=== PATIENT | female | born 1945 | race Caucasian/White ===

== ENCOUNTER 2022-12-17 13:12 | Inpatient (IN) ==
[2022-12-17] MEDS ORDERED: SODIUM CHLORIDE 0.9% 1000ML 1,000 ML IV SCH (13:45)
--- NOTE | 2022-12-17 13:45 | Emergency Department Note ---
Impression & Plan SOB (shortness of breath), Anemia, Weakness, Rectal bleeding ED Provider Note NAME: EZRA COTTON AGE: 76 SEX: F : 1945 ARRIVES VIA: Ambulance INFORMANT: [Patient] ED PROVIDER(S): [Quinn Garcia MD] CHIEF COMPLAINT: Weakness HISTORY OF PRESENT ILLNESS: The patient is a 76-year-old female who states that she had her legs give out on her today because of weakness. She has noticed 2 or 3 days of a bloody stool, sometimes, just blood is noted in the toilet when she uses the bathroom. She is not on any blood thinning agents. Patient denies any abdominal pain. There has been no chest pain, fever or cough. She believes she looks pale in the mirror and she states that she has felt short of breath with any type of exertion. The patient denies injury today, there was no loss of consciousness. PMHx/PSHx: See Below SOCIAL HISTORY: See Below. PHYSICAL EXAM: GENERAL: Patient is in no acute distress. HEENT: No acute trauma, normocephalic atraumatic, mucous membranes moist, no nasal congestion. NECK: No stridor, no adenopathy, no meningismus, trachea is midline. LUNGS: Clear to auscultation bilaterally, no wheeze, no rhonchi, breath sounds equal. HEART: Normal rate, irregular rhythm, no murmurs. ABDOMEN: Soft, nontender, bowel sounds positive, no peritonitis. Obese. EXTREMITIES: No cyanosis, mild bilateral pedal edema, full range of motion of all the joints without pain or difficulty, no signs for acute trauma. NEUROLOGIC: Oriented x 3, no acute motor or sensory deficits, no focal weakness. SKIN: No rash, no jaundice, no diaphoresis. Pale. DIFFERENTIAL DIAGNOSIS: GI bleeding, diverticular bleeding, hemorrhoids, rectal mass, upper GI bleed, anemia, dehydration, electrolyte imbalance, infection, dysrhythmia, among others. EMERGENCY DEPARTMENT COURSE/PROCEDURES: Prior/Outside records reviewed: EMS notes. ECG per my interpretation: Indication was GI bleed and weakness. The ECG shows atrial fibrillation with a rate of 73. There is some nonspecific ST change. There is no ST elevation, no PVCs. The QTc is 445. Continuous Cardiac Monitoring per my interpretation: An order was placed for continuous cardiac monitoring. The monitor shows a rate of 78 with atrial fibrillation. Critical Care Note: I have personally spent 51 minutes of critical care time in the direct management of this patient. This includes bedside care, interpretation of diagnostic studies, and testing, discussion with consultants, patient, and family members, and other required patient management activities. This 51 minutes is in excess of all separately billable procedures. MEDICAL DECISION MAKING: There is no leukocytosis. Hemoglobin was low at 7.6. This is a drop of around 3 points for her. There was a normal platelet count. No coagulopathy. No renal failure or significant electrolyte abnormality. No concerning liver enzyme elevation. The patient appeared to be in a euthyroid state. ECG shows atrial fibrillation, no ischemia. Cardiac enzyme testing x1 is not consistent with acute cardiac injury. Urinalysis does not show infection. COVID test returned negative. Chest film per my review showed some chronic change, no CHF. Abdominal and pelvis CT showed a fullness in the rectal area, no bowel obstruction, no source for bleeding by CT imaging. The patient was pale, she presented with some weakness and near syncope. She noted shortness of breath with exertion. She did have a bloody bowel while here in the ED. The patient was aggressively managed. She received IV saline, 1 L. She was ordered for 1 unit of packed red blood cells to be transfused here in the ED. The proper consent for the transfusion was completed and signed. I spoke with the patient and her friends/family. She is in need of a hospital stay. At this time, the source for the bleeding is unclear but the bleeding does appear lower. She is not on any blood thinning agents. She requires resuscitation. GI can see her during this hospital stay to help with the source for the bleeding. I spoke with case management, the on-call hospitalist was consulted. DISPOSITION: Patient's presentation and findings warrant a hospital stay. Past Med/Surg History Medical History A-fib Anxiety Breast cancer CKD (chronic kidney disease) stage 3, GFR 30-59 ml/min HTN, goal below 140/90 Lymphedema Prediabetes Rheumatoid arthritis Sick sinus syndrome Surgical History History of ankle surgery History of D&C History of lumpectomy of left breast History of tubal ligation Family History Mother Cancer Diabetes Brother Cancer Daughter Breast cancer Father Diabetes Social History Smoking Status: Never smoker Hx Alcohol Use: No Hx Substance Use: No Preferred Language: Chinese Feels Safe at Home: Yes Allergies Allergies Allergy/AdvReac Type Severity Reaction Status Date / Time nickel Allergy Mild SKIN Verified 12/17/22 15:43 IRRITATION ciprofloxacin [From Cipro] AdvReac Severe DESTROYED Verified 12/17/22 15:43 LIGAMENTS IN KNEE naproxen AdvReac Intermediate gi upset Verified 12/17/22 15:43 rofecoxib AdvReac Intermediate irregular Verified 12/17/22 15:43 heartbeat lisinopril AdvReac Cough Verified 12/17/22 17:09 Home Meds Home Medications Medication Instructions Recorded Confirmed alprazolam 0.25 mg tablet 0.25 mg PO BID PRN Anxiety 12/17/22 12/17/22 hydrocodone 5 mg-acetaminophen 325 1 tab PO Q8 PRN Pain 12/17/22 12/17/22 mg tablet metoprolol succinate 25 mg 25 mg PO QID 12/17/22 12/17/22 tablet,extended release 24 hr prednisone 5 mg tablet 5 mg PO DAILY 12/17/22 12/17/22 Results & Data (ED) Vital Signs Vital Signs - 24 hr 12/17/22 13:20 12/17/22 13:34 12/17/22 13:38 Temperature 36.6 C Temperature Source Oral Pulse Rate 74 79 Pulse Rate from SpO2 Sensor Respiratory Rate 20 Respiratory Effort / Characteristics Non-Labored Respiratory Depth Normal Blood Pressure Blood Pressure Mean Pulse Oximetry 100 99 Oxygen Delivery Method Nasal Cannula Room Air Oxygen Flow Rate 6 Sepsis Recent Fever Within 48 Hours No Sepsis New/Unexplained Change in Mental Status No Sepsis Action Taken by Nursing No Action Required Oxygen Flow Rate - Titration 0 Pulse Oximetry Post Tiitration 97 12/17/22 14:46 12/17/22 13:30 12/17/22 14:30 Temperature Temperature Source Pulse Rate 78 76 74 Pulse Rate from SpO2 Sensor 72 77 Respiratory Rate 13 15 Respiratory Effort / Characteristics Respiratory Depth Blood Pressure Blood Pressure Mean Pulse Oximetry 97 99 95 Oxygen Delivery Method Room Air Oxygen Flow Rate Sepsis Recent Fever Within 48 Hours Sepsis New/Unexplained Change in Mental Status Sepsis Action Taken by Nursing Oxygen Flow Rate - Titration Pulse Oximetry Post Tiitration 12/17/22 15:30 Temperature Temperature Source Pulse Rate 79 Pulse Rate from SpO2 Sensor 80 Respiratory Rate 12 Respiratory Effort / Characteristics Respiratory Depth Blood Pressure 162/93 H Blood Pressure Mean 116 Pulse Oximetry 96 Oxygen Delivery Method Oxygen Flow Rate Sepsis Recent Fever Within 48 Hours Sepsis New/Unexplained Change in Mental Status Sepsis Action Taken by Nursing Oxygen Flow Rate - Titration Pulse Oximetry Post Tiitration Home Medications Current Medication List: was personally reviewed by me Laboratory Data Attestation: I reviewed the patient's lab results. 12/17/22 13:27 12/17/22 13:27 Lab Results 12/17/22 12/17/22 12/17/22 Range/Units 13:27 13:27 13:27 WBC 8.72 (4.8-10.8) K/ul RBC 3.48 L (4.20-5.40) M/uL Hgb 7.6 L (12.0-16.0) g/dl Hct 26.8 L (37.0-47.0) % MCV 77.0 L (80.0-100.0) fL MCH 21.8 L (25.0-34.0) pg MCHC 28.4 L (32.0-36.0) g/dL RDW Std Deviation 45.0 (36.4-46.3) fL RDW Coeff of Cat 16.2 H (11.5-14.5) % Plt Count 383 (130-400) K/uL MPV 9.4 (9.4-12.4) fL Immature Gran % (Auto) 0.8 % Neut % (Auto) 59.5 % Lymph % (Auto) 27.5 % [place] % (Auto) 9.4 % Eos % (Auto) 2.5 % Baso % (Auto) 0.3 % Neut # (Auto) 5.18 (1.40-6.50) K/uL Lymph # (Auto) 2.40 (1.2-3.4) K/uL [place] # (Auto) 0.82 H (0.11-0.59) K/uL Eos # (Auto) 0.22 (0-0.50) K/uL Baso # (Auto) 0.03 (0-0.2) K/uL Immature Gran # (Auto) 0.07 (0.01-0.20) K/uL Hypochromasia Present Anisocytosis Present PT 10.9 (9.0-12.0) Seconds INR 1.0 (0.9-1.1) APTT 23.1 (21.0-31.0) Seconds PTT Ratio 0.8 Sodium 141 (136-145) mmol/L Potassium 3.8 (3.5-5.1) mmol/L Chloride 107 (98-107) mmol/L Carbon Dioxide 28 (21-32) mmol/L Anion Gap 6 (3-11) BUN 23 (6-23) mg/dl Creatinine 0.92 (0.6-1.2) mg/dl Est Cr Clr Drug Dosing Not Reportable Est GFR ( Amer) 69.1 ml/min Est GFR (Non-Af Amer) 59.6 ml/min BUN/Creatinine Ratio 25.0 H (10-20) Glucose 110 H (70-99(Fasting)) mg/dl Calcium 8.3 L (8.6-10.3) mg/dl Magnesium 2.5 H (1.7-2.4) mg/dl Total Bilirubin 0.4 (0.2-1.0) mg/dl AST 10 L (13-39) U/L ALT 8 (7-52) U/L Alkaline Phosphatase 48 (34-104) U/L Troponin I High Sens 4.5 (0-14) pg/ml Total Protein 6.1 (6.0-8.3) gm/dl Albumin 3.7 (3.4-5.0) gm/dl Globulin 2.4 L (2.5-4.0) gm/dl Albumin/Globulin Ratio 1.5 (0.9-2) TSH (0.300-4.500) uIu/ml Urine Color Urine Appearance (Clear) Urine pH (4.5-7.5) Ur Specific [place] (1.000-1.030) Urine Protein (Negative) Urine Glucose (UA) (Negative) Urine Ketones (Negative) Urine Blood (Negative) Urine Nitrite (Negative) Urine Bilirubin (Negative) Urine Urobilinogen (Negative) Ur Leukocyte Esterase (Negative) Urine WBC (Auto) (0-5) /hpf Urine RBC (Auto) (0-4) /hpf U Hyaline Cast (Auto) (0-5) /lpf U Epithel Cells (Auto) (0-5) /lpf Urine Bacteria (Auto) (Negative) SARS-CoV-2, RNA, NAAT (NEGATIVE) Blood Type Blood Type Recheck Antibody Screen Crossmatch 12/17/22 12/17/22 12/17/22 Range/Units 13:27 13:27 14:28 WBC (4.8-10.8) K/ul RBC (4.20-5.40) M/uL Hgb (12.0-16.0) g/dl Hct (37.0-47.0) % MCV (80.0-100.0) fL MCH (25.0-34.0) pg MCHC (32.0-36.0) g/dL RDW Std Deviation (36.4-46.3) fL RDW Coeff of Cat (11.5-14.5) % Plt Count (130-400) K/uL MPV (9.4-12.4) fL Immature Gran % (Auto) % Neut % (Auto) % Lymph % (Auto) % [place] % (Auto) % Eos % (Auto) % Baso % (Auto) % Neut # (Auto) (1.40-6.50) K/uL Lymph # (Auto) (1.2-3.4) K/uL [place] # (Auto) (0.11-0.59) K/uL Eos # (Auto) (0-0.50) K/uL Baso # (Auto) (0-0.2) K/uL Immature Gran # (Auto) (0.01-0.20) K/uL Hypochromasia Anisocytosis PT (9.0-12.0) Seconds INR (0.9-1.1) APTT (21.0-31.0) Seconds PTT Ratio Sodium (136-145) mmol/L Potassium (3.5-5.1) mmol/L Chloride (98-107) mmol/L Carbon Dioxide (21-32) mmol/L Anion Gap (3-11) BUN (6-23) mg/dl Creatinine (0.6-1.2) mg/dl Est Cr Clr Drug Dosing Est GFR ( Amer) ml/min Est GFR (Non-Af Amer) ml/min BUN/Creatinine Ratio (10-20) Glucose (70-99(Fasting)) mg/dl Calcium (8.6-10.3) mg/dl Magnesium (1.7-2.4) mg/dl Total Bilirubin (0.2-1.0) mg/dl AST (13-39) U/L ALT (7-52) U/L Alkaline Phosphatase (34-104) U/L Troponin I High Sens (0-14) pg/ml Total Protein (6.0-8.3) gm/dl Albumin (3.4-5.0) gm/dl Globulin (2.5-4.0) gm/dl Albumin/Globulin Ratio (0.9-2) TSH 2.941 (0.300-4.500) uIu/ml Urine Color Urine Appearance (Clear) Urine pH (4.5-7.5) Ur Specific [place] (1.000-1.030) Urine Protein (Negative) Urine Glucose (UA) (Negative) Urine Ketones (Negative) Urine Blood (Negative) Urine Nitrite (Negative) Urine Bilirubin (Negative) Urine Urobilinogen (Negative) Ur Leukocyte Esterase (Negative) Urine WBC (Auto) (0-5) /hpf Urine RBC (Auto) (0-4) /hpf U Hyaline Cast (Auto) (0-5) /lpf U Epithel Cells (Auto) (0-5) /lpf Urine Bacteria (Auto) (Negative) SARS-CoV-2, RNA, NAAT NEGATIVE (NEGATIVE) Blood Type A Positive Blood Type Recheck Antibody Screen NEGATIVE Crossmatch See Detail 12/17/22 12/17/22 Range/Units 15:29 16:13 WBC (4.8-10.8) K/ul RBC (4.20-5.40) M/uL Hgb (12.0-16.0) g/dl Hct (37.0-47.0) % MCV (80.0-100.0) fL MCH (25.0-34.0) pg MCHC (32.0-36.0) g/dL RDW Std Deviation (36.4-46.3) fL RDW Coeff of Cat (11.5-14.5) % Plt Count (130-400) K/uL MPV (9.4-12.4) fL Immature Gran % (Auto) % Neut % (Auto) % Lymph % (Auto) % [place] % (Auto) % Eos % (Auto) % Baso % (Auto) % Neut # (Auto) (1.40-6.50) K/uL Lymph # (Auto) (1.2-3.4) K/uL [place] # (Auto) (0.11-0.59) K/uL Eos # (Auto) (0-0.50) K/uL Baso # (Auto) (0-0.2) K/uL Immature Gran # (Auto) (0.01-0.20) K/uL Hypochromasia Anisocytosis PT (9.0-12.0) Seconds INR (0.9-1.1) APTT (21.0-31.0) Seconds PTT Ratio Sodium (136-145) mmol/L Potassium (3.5-5.1) mmol/L Chloride (98-107) mmol/L Carbon Dioxide (21-32) mmol/L Anion Gap (3-11) BUN (6-23) mg/dl Creatinine (0.6-1.2) mg/dl Est Cr Clr Drug Dosing Est GFR ( Amer) ml/min Est GFR (Non-Af Amer) ml/min BUN/Creatinine Ratio (10-20) Glucose (70-99(Fasting)) mg/dl Calcium (8.6-10.3) mg/dl Magnesium (1.7-2.4) mg/dl Total Bilirubin (0.2-1.0) mg/dl AST (13-39) U/L ALT (7-52) U/L Alkaline Phosphatase (34-104) U/L Troponin I High Sens (0-14) pg/ml Total Protein (6.0-8.3) gm/dl Albumin (3.4-5.0) gm/dl Globulin (2.5-4.0) gm/dl Albumin/Globulin Ratio (0.9-2) TSH (0.300-4.500) uIu/ml Urine Color Yellow Urine Appearance Clear (Clear) Urine pH 6.5 (4.5-7.5) Ur Specific [place] 1.019 (1.000-1.030) Urine Protein Negative (Negative) Urine Glucose (UA) Negative (Negative) Urine Ketones Negative (Negative) Urine Blood Negative (Negative) Urine Nitrite Negative (Negative) Urine Bilirubin Negative (Negative) Urine Urobilinogen Negative (Negative) Ur Leukocyte Esterase Trace H (Negative) Urine WBC (Auto) 5-10 H (0-5) /hpf Urine RBC (Auto) 0-4 (0-4) /hpf U Hyaline Cast (Auto) 1-5 (0-5) /lpf U Epithel Cells (Auto) >30 H (0-5) /lpf Urine Bacteria (Auto) Negative (Negative) SARS-CoV-2, RNA, NAAT (NEGATIVE) Blood Type Blood Type Recheck A Positive Antibody Screen Crossmatch Administered Medications Discontinued Medications Sodium Chloride (Nss 1000ml) 1,000 mls @ 999 mls/hr IV .Q1H1M DESIRAE Stop: 12/17/22 14:45 Last Infusion: 12/17/22 16:00 Dose: 0 mls/hr Documented By: Admin: 12/17/22 14:02 Dose: 999 mls/hr Documented By: ARIADNE Ioversol (Optiray 320 100ml) 85 ml IV ONCE ONE Stop: 12/17/22 15:10 Last Admin: 12/17/22 15:09 Dose: 85 ml Documented By: ROSA Imaging Data Radiologist's Impression: Abdomen/Pelvis CT 12/17/22 13:[address] WITH IV CONTRAST CT DOSE: 2232.79 mGycm HISTORY: Acute pelvic pain with reported rectal bleeding rectal bleeding TECHNIQUE: Multiaxial CT images of the abdomen and pelvis were performed follo wing the IV administration of 85 cc of Optiray, A dose lowering technique was utilized adhering to the principles of ALARA. COMPARISON STUDY: Mammography 03/25/2012. FINDINGS: There is a linear masslike focus in the medial superior quadrant of the left breast measuring 3.8 cm on image 49 series 5 located approximately 13 cm from the nipple. Mild cardiomegaly. Mild right hemidiaphragmatic elevation. Clear lung bases. No pneumatosis or pneumoperitoneum. The study is limited secondary to patient body habitus. Scattered calcifications are noted within the spleen. Calcifications are also within the splenic artery. Unremarkable pancreas, mildly contracted gallbladder and adrenal glands. Moderate right hemidiaphragmatic elevation. Unremarkable appearance of the liver. Mild cortical thinning of the kidneys without hydronephrosis or suspicious mass lesion. No filling defects identified within the opacified renal collecting systems. Unremarkable urinary bladder and uterus. Aorta and IVC are u nremarkable. No lymphadenopathy identified. No bowel obstruction. The anus is only partially imaged however demonstrate soft tissue fullness. No bowel obstruction or bowel wall thickening identified. There is no ascites or mesenteric inflammation. Noninflamed appendix. Tiny fat filled umbilical hernia. Unremarkable soft tissues. No acute fracture. Degenerative changes of the shoulders and spine. IMPRESSION: 1. Equivocal mild soft tissue fullness in the partially imaged anus. Correlate with physical exam findings. 2. No bowel obstruction or pneumoperitoneum. 3. Incidental findings as above. ACT 112: Negative or not required by law. The above report was generated using voice recognition software. It may contain grammatical, syntax or spelling errors. Electronically signed by: Jersey Gaston M.D. 12/17/2022 3:35 PM Chest X-Ray 12/17/22 13:41 SINGLE VIEW CHEST CLINICAL HISTORY: Generalized weakness. FINDINGS: An AP, portable, upright chest radiograph is compared to chest x-ray and chest CT dated 03/08/2012. The heart is enlarged. The pulmonary vasculature is noncongested. There is chronic elevation of the right hemidiaphragm with bibasilar atelectasis. No airspace consolidation or large pleural effusion is identified. No pneumothorax is seen. The skeletal structures are osteopenic. The bony thorax is grossly intact. IMPRESSION: Mild cardiomegaly with no acute cardiopulmonary abnormality. ACT 112: Negative or not required by law. Electronically signed by: Quinn Conner M.D. 12/17/2022 2:04 PM Discharge Plan Visit Data Chief Complaint: Weakness Stated Complaint: weakness ED Provider: Quinn Garcia Discharge Problem: SOB (shortness of breath), Anemia, Weakness, Rectal bleeding Patient Disposition: Admitted As Inpatient Condition: Fair Forms Stand Alone Forms: [employer] Prescriptions Prescriptions: No Action hydrocodone-acetaminophen 5-325 mg tablet 1 tab PO Q8 PRN (Reason: Pain) Rx Instructions: Takes 1-2 times per day prednisone 5 mg tablet 5 mg PO DAILY Rx Instructions: IF NEEDED, MAY TAKE 10 MG DAILY FOR FLARE UPS. alprazolam 0.25 mg tablet 0.25 mg PO BID PRN (Reason: Anxiety) Rx Instructions: Takes 1-2 times per day metoprolol succinate 25 mg tablet extended release 24 hr 25 mg PO QID Referrals Referrals: Jennifer Asif [Outside Practitioners] -
[2022-12-17 14:04] LABS: Alanine Aminotransferase 8 U/L (7-52); Albumin Globulin Ratio 1.5 (0.9-2); Albumin Level 3.7 gm/dl (3.4-5.0); Alkaline Phosphatase 48 U/L (34-104); Anion Gap 6 (3-11); Aspartate Aminotransferase 10 U/L (13-39); Bilirubin,Total 0.4 mg/dl (0.2-1.0); Blood Urea Nitrogen 23 mg/dl (6-23); Calcium 8.3 mg/dl (8.6-10.3); Carbon Dioxide 28 mmol/L (21-32); Chloride 107 mmol/L (98-107); Est GFR (African American) 69.1 ml/min; Est GFR (Non-African American) 59.6 ml/min; Globulin 2.4 gm/dl (2.5-4.0); Glucose 110 mg/dl (70-99(Fasting)); Magnesium 2.5 mg/dl (1.7-2.4); Potassium 3.8 mmol/L (3.5-5.1); Sodium 141 mmol/L (136-145); Total Protein 6.1 gm/dl (6.0-8.3)
--- NOTE | 2022-12-17 14:06 | XRay Report ---
SINGLE VIEW CHEST CLINICAL HISTORY: Generalized weakness. FINDINGS: An AP, portable, upright chest radiograph is compared to chest x-ray and chest CT dated 02/17. The heart is enlarged. The pulmonary vasculature is noncongested. There is chronic elevation of the right hemidiaphragm with bibasilar atelectasis. No airspace consolidation or large pleural eff usion is identified. No pneumothorax is seen. The skeletal structures are osteopenic. The bony thorax is grossly intact. IMPRESSION: Mild cardiomegaly with no acute cardiopulmonary abnormality. ACT 112: Negative or not required by law. Electronically signed by: Quinn Conner M.D. 12/17/2022 2:04 PM
[2022-12-17 14:10] LABS: Troponin I High Sensitivity 4.5 pg/ml (0-14)
[2022-12-17 14:26] LABS: Partial Thromboplastin Ratio 0.8; Partial Thromboplastin Time 23.1 Seconds (21.0-31.0); Prothrombin Time 10.9 Seconds (9.0-12.0)
[2022-12-17 14:50] LABS: Hematocrit (blood only) 26.8 % (37.0-47.0); Hemoglobin 7.6 g/dl (12.0-16.0); Mean Corpuscular Hemoglobin 21.8 pg (25.0-34.0); Mean Corpuscular Hgb Conc 28.4 g/dL (32.0-36.0); Mean Platelet Volume 9.4 fL (9.4-12.4); Platelet Count 383 K/uL (130-400); RDW Coefficient of Variation 16.2 % (11.5-14.5); Red Blood Count 3.48 M/uL (4.20-5.40); White Blood Count 8.72 K/ul (4.8-10.8)
[2022-12-17 14:51] LABS: Anisocytosis Present; Basophils # (auto) 0.03 K/uL (0-0.2); Basophils % (auto) 0.3 %; Eosinophils # (auto) 0.22 K/uL (0-0.50); Eosinophils % (auto) 2.5 %; Hypochromasia Present; Immature Granulocytes # (auto) 0.07 K/uL (0.01-0.20); Immature Granulocytes % (auto) 0.8 %; Lymphocytes % (auto) 27.5 %; Monocytes # (auto) 0.82 K/uL (0.11-0.59); Monocytes % (auto) 9.4 %; Neutrophils # (auto) 5.18 K/uL (1.40-6.50); Neutrophils % (auto) 59.5 %
[2022-12-17] MEDS ORDERED: OPTIRAY 320 100ml IV ONE (15:09)
--- NOTE | 2022-12-17 15:36 | CT Scan Report ---
ABDOMEN AND PELVIS CT WITH IV CONTRAST CT DOSE: 2232.79 mGycm HISTORY: Acute pelvic pain with reported rectal bleeding rectal bleeding TECHNIQUE: Multiaxial CT images of the abdomen and pelvis were performed following the IV administrat ion of 85 cc of Optiray, A dose lowering technique was utilized adhering to the principles of ALARA. COMPARISON STUDY: Mammography 03/25/2012. FINDINGS: There is a linear masslike focus in the medial superior quadrant of the left breast measuri ng 3.8 cm on image 49 series 5 located approximately 13 cm from the nipple. Mild cardiomegaly. Mild r ight hemidiaphragmatic elevation. Clear lung bases. No pneumatosis or pneumoperitoneum. The study is limited secondary to patient body habitus. Scattered calcifications are noted within the spleen. Calcifications are also within the splenic сергей ry. Unremarkable pancreas, mildly contracted gallbladder and adrenal glands. Moderate right hemidiaph ragmatic elevation. Unremarkable appearance of the liver. Mild cortical thinning of the kidneys without hydronephrosis or suspicious mass lesion. No filling de fects identified within the opacified renal collecting systems. Unremarkable urinary bladder and uter us. Aorta and IVC are unremarkable. No lymphadenopathy identified. No bowel obstruction. The anus is only partially imaged however demonstrate soft tissue fullness. No bowel obstruction or bowel wall thickening identified. There is no ascites or mesenteric inflammation . Noninflamed appendix. Tiny fat filled umbilical hernia. Unremarkable soft tissues. No acute fractur e. Degenerative changes of the shoulders and spine. IMPRESSION: 1. Equivocal mild soft tissue fullness in the partially imaged anus. Correlate with physical exam fin dings. 2. No bowel obstruction or pneumoperitoneum. 3. Incidental findings as above. ACT 112: Negative or not required by law. The above report was generated using voice recognition software. It may contain grammatical, syntax o r spelling errors. Electronically signed by: Jersey Gaston M.D. 12/17/2022 3:35 PM
[2022-12-17] MEDS ORDERED: SODIUM CHLORIDE 0.9% 250 ML IV PRN (15:51)
[2022-12-17 16:08] LABS: Appearance Urine Clear (Clear); Bacteria Urine Automated Negative (Negative); Bilirubin Urine Negative (Negative); Blood Urine Negative (Negative); Color Urine Yellow; Epithelial Cell Urine Auto >30 /lpf (0-5); Glucose Urine UA Negative (Negative); Ketones Urine Negative (Negative); Leukocyte Esterase Urine Trace (Negative); Nitrite Urine Negative (Negative); Protein Urine Negative (Negative); RBC Urine Automated 0-4 /hpf (0-4); Specific Gravity Urine 1.019 (1.000-1.030); Urobilinogen Urine Negative (Negative); pH Urine 6.5 (4.5-7.5)
--- NOTE | 2022-12-17 16:28 | History & Physical Report ---
Date of Service December 17, 2022 Assessment & Plan (1) Lower gastrointestinal bleed: Plan: Npo for now. GI consult ordered blood transfusion will moniter h/h post transfusion Patient was mildly short of breath and also felt dizzy. states that she has chronic hemorrhoids. (2) Chronic steroid use: Plan: for rheumatoid arthritis. (3) Sick sinus syndrome: Plan: stable rate controlled with metoprolol (4) HTN, goal below 140/90: Plan: continue metoprolol (5) Prediabetes: (6) CKD (chronic kidney disease) stage 3, GFR 30-59 ml/min: (7) A-fib: Plan: rate controlled. Patient was advised eliquis in the past . (8) Rheumatoid arthritis: Plan: continue prednisone. continue hydrocodone prn for pain (9) Acute anemia: Plan: secoondary to gi losses. Plan Admit to Telemetry Vitals as protocol Activity : Bedrest with bathroom previliges Diet NPO Consult :GI consult ordered No Vte prophylaxis Code status: full code. History of Present Illness Chief Complaint: rectal bleeding x 3 days Primary Care Provider: Landon Martinez DO This is a 76 y/o female with a PMH of SSS (has refused PPM placement), afib (refused AC), prior breast cancer (s/p lumpectomy, XRT), rheumatoid arthritis, CKD3a, and chronic prednisone use who presented with rectal bleeding. Today, she had a near syncopal episode so pushed her life alert button. Has become progressively weak, notes some RUIZ. When asked why she's here today, she reports "my hemorrhoids are bleeding" and states that she has had issues with constipation and hemorrhoids x 30 years. Refused anticoagulation due to this - initially agreed at last cardio appt but then declined to get script filled. Worsening symptoms of constipation recently - has adjusted diet over the years which has seemed to help initially but less effective now. For the last three days, she has rectal bleeding any time she has to have a BM - "gushes out." She denies heartburn, indigestion, dysphagia, unexplained wt loss, hematuria, or epistaxis. She does not take NSAIDs. Uses hydrocodone 1-2x/day for her joint pains. Allergies Allergy/AdvReac Type Severity Reaction Status Date / Time nickel Allergy Mild SKIN Verified 12/17/22 15:43 IRRITATION ciprofloxacin [From Cipro] AdvReac Severe DESTROYED Verified 12/17/22 15:43 LIGAMENTS IN KNEE naproxen AdvReac Intermediate gi upset Verified 12/17/22 15:43 rofecoxib AdvReac Intermediate irregular Verified 12/17/22 15:43 heartbeat lisinopril AdvReac Cough Verified 12/17/22 17:09 Home Medications Medication Instructions Recorded Confirmed Type alprazolam 0.25 mg tablet 0.25 mg PO BID PRN Anxiety 12/17/22 12/17/22 History hydrocodone 5 mg-acetaminophen 325 1 tab PO Q8 PRN Pain 12/17/22 12/17/22 H istory mg tablet metoprolol succinate 25 mg 25 mg PO QID 12/17/22 12/17/22 History tablet,extended release 24 hr prednisone 5 mg tablet 5 mg PO DAILY 12/17/22 12/17/22 History Past Med/Surg History Medical History A-fib Anxiety Breast cancer CKD (chronic kidney disease) stage 3, GFR 30-59 ml/min HTN, goal below 140/90 Lymphedema Prediabetes Rheumatoid arthritis Sick sinus syndrome Surgical History History of ankle surgery History of D&C History of lumpectomy of left breast History of tubal ligation Family History Mother Cancer Diabetes Brother Cancer Daughter Breast cancer Father Diabetes Social History Smoking Status: Never smoker Hx Alcohol Use: No Hx Substance Use: No Preferred Language: Congolese Feels Safe at Home: Yes Review of Systems Review of Systems: All systems reviewed & are unremarkable except as noted in HPI & below Constitutional: + fatigue and + weakness; no fever and no chills Ear, Nose, Mouth, Throat: no nasal congestion, no epistaxis, no sore throat and no dysphagia Respiratory: + dyspnea on exertion; no cough and no dyspnea Cardiovascular: + dyspnea on exertion and + lightheadedness; no chest pain and no syncope Gastrointestinal: + constipation and + blood in stools; no abdominal pain, no nausea, no vomiting and no diarrhea/loose stools Genitourinary: no dysuria and no hematuria Musculoskeletal: chronic joint pains due to RA Integumentary: no yellowing of the skin Neurologic: + generalized weakness and + dizziness Psychiatric: + anxiety Physical Exam Physical Exam: Neuro: AAOx3 , PERRLA, no aphasia, HEENT: head normocephalic, CV: S1/S2, Resp: Lungs CTA in all martin. on room air GI: Abdomen non tender. Musculoskeletal: no joint pain. Skin: (-) rashes , (-) erythema. Psych: normal affect Results & Data Results & Data Vital Signs (Past 12 Hours) Vital Signs Temp Pulse Resp BP Pulse Ox O2 Del Method O2 Flow Rate 12/17/22 15:30 79 12 162/93 H 96 12/17/22 14:30 74 15 95 12/17/22 13:30 76 13 99 12/17/22 14:46 78 97 Room Air 12/17/22 13:38 79 12/17/22 13:34 36.6 C 74 20 99 Room Air 12/17/22 13:20 100 Nasal Cannula 6 Laboratory Results Laboratory Results - last 24 hr 12/17/22 12/17/22 12/17/22 13:27 13:27 13:27 WBC 8.72 RBC 3.48 L Hgb 7.6 L Hct 26.8 L MCV 77.0 L MCH 21.8 L MCHC 28.4 L RDW Std Deviation 45.0 RDW Coeff of Cat 16.2 H Plt Count 383 MPV 9.4 Immature Gran % (Auto) 0.8 Neut % (Auto) 59.5 Lymph % (Auto) 27.5 [place] % (Auto) 9.4 Eos % (Auto) 2.5 Baso % (Auto) 0.3 Neut # (Auto) 5.18 Lymph # (Auto) 2.40 [place] # (Auto) 0.82 H Eos # (Auto) 0.22 Baso # (Auto) 0.03 Immature Gran # (Auto) 0.07 Hypochromasia Present Anisocytosis Present PT 10.9 INR 1.0 APTT 23.1 PTT Ratio 0.8 Sodium 141 Potassium 3.8 Chloride 107 Carbon Dioxide 28 Anion Gap 6 BUN 23 Creatinine 0.92 Est Cr Clr Drug Dosing Not Reportable Est GFR ( Amer) 69.1 Est GFR (Non-Af Amer) 59.6 BUN/Creatinine Ratio 25.0 H Glucose 110 H Calcium 8.3 L Magnesium 2.5 H Total Bilirubin 0.4 AST 10 L ALT 8 Alkaline Phosphatase 48 Troponin I High Sens 4.5 Total Protein 6.1 Albumin 3.7 Globulin 2.4 L Albumin/Globulin Ratio 1.5 TSH Urine Color Urine Appearance Urine pH Ur Specific [place] Urine Protein Urine Glucose (UA) Urine Ketones Urine Blood Urine Nitrite Urine Bilirubin Urine Urobilinogen Ur Leukocyte Esterase Urine WBC (Auto) Urine RBC (Auto) U Hyaline Cast (Auto) U Epithel Cells (Auto) Urine Bacteria (Auto) SARS-CoV-2, RNA, NAAT Blood Type Blood Type Recheck Antibody Screen 12/17/22 12/17/22 12/17/22 13:27 13:27 14:28 WBC RBC Hgb Hct MCV MCH MCHC RDW Std Deviation RDW Coeff of Cat Plt Count MPV Immature Gran % (Auto) Neut % (Auto) Lymph % (Auto) [place] % (Auto) Eos % (Auto) Baso % (Auto) Neut # (Auto) Lymph # (Auto) [place] # (Auto) Eos # (Auto) Baso # (Auto) Immature Gran # (Auto) Hypochromasia Anisocytosis PT INR APTT PTT Ratio Sodium Potassium Chloride Carbon Dioxide Anion Gap BUN Creatinine Est Cr Clr Drug Dosing Est GFR ( Amer) Est GFR (Non-Af Amer) BUN/Creatinine Ratio Glucose Calcium Magnesium Total Bilirubin AST ALT Alkaline Phosphatase Troponin I High Sens Total Protein Albumin Globulin Albumin/Globulin Ratio TSH 2.941 Urine Color Urine Appearance Urine pH Ur Specific [place] Urine Protein Urine Glucose (UA) Urine Ketones Urine Blood Urine Nitrite Urine Bilirubin Urine Urobilinogen Ur Leukocyte Esterase Urine WBC (Auto) Urine RBC (Auto) U Hyaline Cast (Auto) U Epithel Cells (Auto) Urine Bacteria (Auto) SARS-CoV-2, RNA, NAAT NEGATIVE Blood Type A Positive Blood Type Recheck Antibody Screen NEGATIVE 12/17/22 12/17/22 15:29 16:13 WBC RBC Hgb Hct MCV MCH MCHC RDW Std Deviation RDW Coeff of Cat Plt Count MPV Immature Gran % (Auto) Neut % (Auto) Lymph % (Auto) [place] % (Auto) Eos % (Auto) Baso % (Auto) Neut # (Auto) Lymph # (Auto) [place] # (Auto) Eos # (Auto) Baso # (Auto) Immature Gran # (Auto) Hypochromasia Anisocytosis PT INR APTT PTT Ratio Sodium Potassium Chloride Carbon Dioxide Anion Gap BUN Creatinine Est Cr Clr Drug Dosing Est GFR ( Amer) Est GFR (Non-Af Amer) BUN/Creatinine Ratio Glucose Calcium Magnesium Total Bilirubin AST ALT Alkaline Phosphatase Troponin I High Sens Total Protein Albumin Globulin Albumin/Globulin Ratio TSH Urine Color Yellow Urine Appearance Clear Urine pH 6.5 Ur Specific [place] 1.019 Urine Protein Negative Urine Glucose (UA) Negative Urine Ketones Negative Urine Blood Negative Urine Nitrite Negative Urine Bilirubin Negative Urine Urobilinogen Negative Ur Leukocyte Esterase Trace H Urine WBC (Auto) 5-10 H Urine RBC (Auto) 0-4 U Hyaline Cast (Auto) 1-5 U Epithel Cells (Auto) >30 H Urine Bacteria (Auto) Negative SARS-CoV-2, RNA, NAAT Blood Type Blood Type Recheck Pending Antibody Screen Diagnostic Findings Abdomen/Pelvis CT 12/17/22 13:[address] WITH IV CONTRAST CT DOSE: 2232.79 mGycm HISTORY: Acute pelvic pain with reported rectal bleeding rectal bleeding TECHNIQUE: Multiaxial CT images of the abdomen and pelvis were performed following the IV administration of 85 cc of Optiray, A dose lowering technique was utilized adhering to the principles of ALARA. COMPARISON STUDY: Mammography 03/25/2012. FINDINGS: There is a linear masslike focus in the medial superior quadrant of the left breast measuring 3.8 cm on image 49 series 5 located approximately 13 cm from the nipple. Mild cardiomegaly. Mild right hemidiaphragmatic elevation. Clear lung bases. No pneumatosis or pneumoperitoneum. The study is limited secondary to patient body habitus. Scattered calcifications are noted within the spleen. Calcifications are also within the splenic artery. Unremarkable pancreas, mildly contracted gallbladder and adrenal glands. Moderate right hemidiaphragmatic elevation. Unremarkable appearance of the liver. Mild cortical thinning of the kidneys without hydronephrosis or suspicious mass lesion. No filling defects identified within the opacified renal collecting systems. Unremarkable urinary bladder and uterus. Aorta and IVC are unremarkable. No lymphadenopathy identified. No bowel obstruction. The anus is only partially imaged however demonstrate soft tissue fullness. No bowel obstruction or bowel wall thickening identified. There is no ascites or mesenteric inflammation. Noninflamed appendix. Tiny fat filled umbilical hernia. Unremarkable soft tissues. No acute fracture. Degenerative changes of the shoulders and spine. IMPRESSION: 1. Equivocal mild soft tissue fullness in the partially imaged anus. Correlate with physical exam findings. 2. No bowel obstruction or pneumoperitoneum. 3. Incidental findings as above. ACT 112: Negative or not required by law. The above report was generated using voice recognition software. It may contain grammatical, syntax or spelling errors. Electronically signed by: Jersey Gaston M.D. 12/17/2022 3:35 PM Chest X-Ray 12/17/22 13:41 SINGLE VIEW CHEST CLINICAL HISTORY: Generalized weakness. FINDINGS: An AP, portable, upright chest radiograph is compared to chest x-ray and chest CT dated 03/08/2012. The heart is enlarged. The pulmonary vasculature is noncongested. There is chronic elevation of the right hemidiaphragm with bibasilar atelectasis. No airspace consolidation or large pleural effusion is identified. No pneumothorax is seen. The skeletal structures are osteopenic. The bony thorax is grossly intact. IMPRESSION: Mild cardiomegaly with no acute cardiopulmonary abnormality. ACT 112: Negative or not required by law. Electronically signed by: Quinn Conner M.D. 12/17/2022 2:04 PM Medications Administered Discontinued Medications Sodium Chloride (Nss 1000ml) 1,000 mls @ 999 mls/hr IV .Q1H1M DESIRAE Stop: 12/17/22 14:45 Last Admin: 12/17/22 14:02 Dose: 999 mls/hr Documented By: ARIADNE Ioversol (Optiray 320 100ml) 85 ml IV ONCE ONE Stop: 12/17/22 15:10 Last Admin: 12/17/22 15:09 Dose: 85 ml Documented By: KSF Code Status & VTE Plan Code Status Code status: Full code Supervising Physician Co-Signing Physician Notes Neuro: AAOx3 , PERRLA, no aphasia, HEENT: head normocephalic, CV: S1/S2, Resp: Lungs CTA in all martin. on room air GI: Abdomen non tender. Musculoskeletal: no joint pain. Skin: (-) rashes , (-) erythema. Psych: normal affect Assessment and plan added to chart I spent a total of 82 minutes reviewing notes, outpatient records, labs, medication, coordinating, documenting and providing care for this patient excluding time spent in the performance of separately billed services.
[2022-12-17] MEDS ORDERED: ACETAMINOPHEN 325 MG TAB PO PRN (19:25)
[2022-12-17] MEDS: METOPROLOL SUCC 25MG EXT REL TAB PO SCH ×2 (20:44→20:48)
[2022-12-17] MEDS: HYDROCODONE/ACETAMOPHEN 5/325MG TAB PO PRN (20:48)
[2022-12-17] MEDS: ALPRAZolam 0.25 MG TABLET PO PRN (21:40)
[2022-12-17] MEDS: PANTOprazole 40 MG in SYRINGE 0 ML IV SCH (23:04)
[2022-12-18] MEDS ORDERED: FUROSEMIDE INJ 20 MG/2 ML VIAL IV ONE (01:45)
[2022-12-18] MEDS: SODIUM CHLORIDE 0.9% 1000ML 1,000 ML IV SCH ×2 (01:57→08:26)
[2022-12-18 04:01] LABS: Hematocrit (blood only) 29.7 % (37.0-47.0); Hemoglobin 9.2 g/dl (12.0-16.0); Mean Corpuscular Hemoglobin 24.4 pg (25.0-34.0); Mean Corpuscular Volume 78.8 fL (80.0-100.0); Mean Platelet Volume 8.9 fL (9.4-12.4); Platelet Count 309 K/uL (130-400); RDW Coefficient of Variation 16.7 % (11.5-14.5); RDW Standard Deviation 47.4 fL (36.4-46.3); Red Blood Count 3.77 M/uL (4.20-5.40); White Blood Count 7.68 K/ul (4.8-10.8)
[2022-12-18 04:04] LABS: BUN Creatinine Ratio 16.9 (10-20); Creatinine Clr Calc Pharmacy 67.4 ml/min; Est GFR (African American) 71.9 ml/min; Est GFR (Non-African American) 62.1 ml/min; Potassium 4.1 mmol/L (3.5-5.1)
[2022-12-18] MEDS: PANTOprazole 40 MG in SYRINGE 0 ML IV SCH ×2 (08:25→20:11)
[2022-12-18] MEDS: METOPROLOL SUCC 25MG EXT REL TAB PO SCH ×4 (08:25→20:12)
[2022-12-18] MEDS: predniSONE 5 MG TAB PO SCH (08:25)
[2022-12-18] MEDS: HYDROCODONE/ACETAMOPHEN 5/325MG TAB PO PRN (08:29)
--- NOTE | 2022-12-18 09:24 | Gastrointestinal Consultation ---
Date of Consultation December 18, 2022 Assessment & Plan (1) Rectal bleeding: (2) Acute anemia: Plan 76 year old female with history of SSS (has refused PPM placement), afib (refused AC due to chronic rectal bleeding), breast cancer (s/p lumpectomy, XRT), CKD-3, RA on prednisone admitted through the ED for symptomatic anemia w/ rectal bleeding, onset three days ago. CT w/ soft tissue thickness of anus. Clear liquids today Golytely 4L NPO after midnight Colonoscopy Saturday Trend H&H Monitor and document GI output Transfuse as needed We appreciate assistance in the management of any serological abnormality and corrections to include: hemoglobin >7, INR <2, platelets >50,000, potassium levels >3.5 but <5.3, and sodium levels within 5 points of the reference range prior to endoscopic evaluation. Thank you for allowing us to participate in the care of this patient. Please call with any acute changes, questions or concerns. Please see addendum below with additional recommendation from my supervising physician. Supervising Physician Co-Signing Physician Notes I have personally seen and examined the patient with SY Burt. Her note reflects my exam and findings. I agree with her impression and plan. Agree with colonoscopy tomorrow. Bradley Mcneal M.D. History of Present Illness Reason for Consultation: rectal bleeding Requesting Physician: Julio Cesar Attending Physician: Andrea Harrell MD History of Present Illness 76 year old female with history of SSS (has refused PPM placement), afib (refused AC due to chronic rectal bleeding), breast cancer (s/p lumpectomy, XRT), CKD-3, RA on prednisone admitted through the ED for evaluation of rectal bleeding. GI was asked to evaluate. Pt was seen, chart reviewed. Suggests rectal bleeding intermittent x years. She notes she has been hesitant to start recommended AC in the past due to the severity of her rectal bleeding. She notes she had colonoscopy x 2 by [facility] years and years ago and had polyps removed but was told that her bleeding was related to hemorrhoids. Has been hesitant to have hemorrhoid procedure so has been using OTC agents PRN. Notes that her bleeding this episode seemed more severe. Started after enema use for management of constipation. Large volume, BRB with some clots. No black stools. Had lightheadedness dizziness which prompted ED evaluation. Denies nausea, vomiting or any report of prior black stools, coffee ground emesis or hematemesis. No fever, chills, CP, SOB. On arrival HGB 7.6 BUN 15 TB 0.4 AST 10 ALT 8 ALKP 48 CTAP 2022: Equivocal mild soft tissue fullness in the partially imaged anus. Correlate with physical exam findings. No bowel obstruction or pneumoperitoneum. Incidental findings as above. Allergies Allergy/AdvReac Type Severity Reaction Status Date / Time nickel Allergy Mild SKIN Verified 12/17/22 15:43 IRRITATION ciprofloxacin [From Cipro] AdvReac Severe DESTROYED Verified 12/17/22 15:43 LIGAMENTS IN KNEE naproxen AdvReac Intermediate gi upset Verified 12/17/22 15:43 rofecoxib AdvReac Intermediate irregular Verified 12/17/22 15:43 heartbeat lisinopril AdvReac Cough Verified 12/17/22 17:09 Home Medications Medication Instructions Recorded Confirmed Type alprazolam 0.25 mg tablet 0.25 mg PO BID PRN Anxiety 12/17/22 12/17/22 History hydrocodone 5 mg-acetaminophen 325 1 tab PO Q8 PRN Pain 12/17/22 12/17/22 History mg tablet metoprolol succinate 25 mg 25 mg PO QID 12/17/22 12/17/22 History tablet,extended release 24 hr prednisone 5 mg tablet 5 mg PO DAILY 12/17/22 12/17/22 History Patient History Medical History A-fib Anxiety Breast cancer CKD (chronic kidney disease) stage 3, GFR 30-59 ml/min HTN, goal below 140/90 Lymphedema Prediabetes Rheumatoid arthritis Sick sinus syndrome Surgical History History of ankle surgery History of D&C History of lumpectomy of left breast History of tubal ligation Family History Mother Cancer Diabetes Brother Cancer Daughter Breast cancer Father Diabetes Social History Smoking Status: Never smoker Hx Alcohol Use: No Hx Substance Use: No Preferred Language: Malay Communication Ability: Effective Garbage Collection Supervisor Required: No Beliefs That Will Affect Care: None Current Living Situation: Alone Other Information That Helps Us Care for You: No Feels Safe at Home: Yes Safety Concerns: Feels Safe At This Time Assistive Devices: Walker and Wheelchair Review of Systems Review of Systems: All systems reviewed & are unremarkable except as noted in HPI & below Physical Exam Constitutional: WD/WN, vitals as above Neck: trachea midline Respiratory: normal respiratory effort, lungs clear to auscultation Cardiovascular: Rate/Rhythm: regular rate Gastrointestinal (Abdomen): normal bowel sounds, soft, nontender, no hepatosplenomegaly Skin: no rashes, warm and dry Results & Data Vital Signs (Past 12 Hours) Vital Signs Temp Pulse Pulse Resp BP BP Pulse Ox 12/18/22 07:38 36.6 C 76 16 145/87 H 94 12/17/22 22:00 73 12/18/22 01:53 37.4 C 77 20 136/84 93 12/18/22 01:20 36.6 C 78 22 153/75 H 96 12/17/22 23:00 109/65 12/18/22 00:20 37.1 C 76 20 119/77 93 12/17/22 23:50 36.8 C 72 20 136/78 94 12/17/22 23:32 37 C 76 20 129/69 97 12/17/22 23:06 37 C 75 18 129/78 94 12/17/22 22:25 37 C 72 22 133/79 96 12/17/22 21:25 37.1 C 82 20 152/80 H 94 O2 Del Method 12/18/22 07:38 Room Air 12/17/22 22:00 12/18/22 01:53 12/18/22 01:20 12/17/22 23:00 12/18/22 00:20 12/17/22 23:50 12/17/22 23:32 12/17/22 23:06 12/17/22 22:25 12/17/22 21:25 Laboratory Results 12/18/22 12/18/22 12/17/22 Range/Units 03:31 03:31 16:13 WBC 7.68 (4.8-10.8) K/ul RBC 3.77 L (4.20-5.40) M/uL Hgb 9.2 L (12.0-16.0) g/dl Hct 29.7 L (37.0-47.0) % MCV 78.8 L (80.0-100.0) fL MCH 24.4 L (25.0-34.0) pg MCHC 31.0 L (32.0-36.0) g/dL RDW Std Deviation 47.4 H (36.4-46.3) fL RDW Coeff of Cat 16.7 H (11.5-14.5) % Plt Count 309 (130-400) K/uL MPV 8.9 L (9.4-12.4) fL Immature Gran % (Auto) % Neut % (Auto) % Lymph % (Auto) % [place] % (Auto) % Eos % (Auto) % Baso % (Auto) % Neut # (Auto) (1.40-6.50) K/uL Lymph # (Auto) (1.2-3.4) K/uL [place] # (Auto) (0.11-0.59) K/uL Eos # (Auto) (0-0.50) K/uL Baso # (Auto) (0-0.2) K/uL Immature Gran # (Auto) (0.01-0.20) K/uL Hypochromasia Anisocytosis PT (9.0-12.0) Seconds INR (0.9-1.1) APTT (21.0-31.0) Seconds PTT Ratio Sodium 142 (136-145) mmol/L Potassium 4.1 (3.5-5.1) mmol/L Chloride 109 H (98-107) mmol/L Carbon Dioxide 26 (21-32) mmol/L Anion Gap 7 (3-11) BUN 15 (6-23) mg/dl Creatinine 0.89 (0.6-1.2) mg/dl Est Cr Clr Drug Dosing 67.4 Est GFR ( Amer) 71.9 ml/min Est GFR (Non-Af Amer) 62.1 ml/min BUN/Creatinine Ratio 16.9 (10-20) Glucose 102 H (70-99(Fasting)) mg/dl Calcium 8.0 L (8.6-10.3) mg/dl Magnesium (1.7-2.4) mg/dl Total Bilirubin (0.2-1.0) mg/dl AST (13-39) U/L ALT (7-52) U/L Alkaline Phosphatase (34-104) U/L Troponin I High Sens (0-14) pg/ml Total Protein (6.0-8.3) gm/dl Albumin (3.4-5.0) gm/dl Globulin (2.5-4.0) gm/dl Albumin/Globulin Ratio (0.9-2) TSH (0.300-4.500) uIu/ml Urine Color Urine Appearance (Clear) Urine pH (4.5-7.5) Ur Specific [place] (1.000-1.030) Urine Protein (Negative) Urine Glucose (UA) (Negative) Urine Ketones (Negative) Urine Blood (Negative) Urine Nitrite (Negative) Urine Bilirubin (Negative) Urine Urobilinogen (Negative) Ur Leukocyte Esterase (Negative) Urine WBC (Auto) (0-5) /hpf Urine RBC (Auto) (0-4) /hpf U Hyaline Cast (Auto) (0-5) /lpf U Epithel Cells (Auto) (0-5) /lpf Urine Bacteria (Auto) (Negative) SARS-CoV-2, RNA, NAAT (NEGATIVE) Blood Type Blood Type Recheck A Positive Antibody Screen Crossmatch 12/17/22 12/17/22 12/17/22 Range/Units 15:29 14:28 13:27 WBC (4.8-10.8) K/ul RBC (4.20-5.40) M/uL Hgb (12.0-16.0) g/dl Hct (37.0-47.0) % MCV (80.0-100.0) fL MCH (25.0-34.0) pg MCHC (32.0-36.0) g/dL RDW Std Deviation (36.4-46.3) fL RDW Coeff of Cat (11.5-14.5) % Plt Count (130-400) K/uL MPV (9.4-12.4) fL Immature Gran % (Auto) % Neut % (Auto) % Lymph % (Auto) % [place] % (Auto) % Eos % (Auto) % Baso % (Auto) % Neut # (Auto) (1.40-6.50) K/uL Lymph # (Auto) (1.2-3.4) K/uL [place] # (Auto) (0.11-0.59) K/uL Eos # (Auto) (0-0.50) K/uL Baso # (Auto) (0-0.2) K/uL Immature Gran # (Auto) (0.01-0.20) K/uL Hypochromasia Anisocytosis PT (9.0-12.0) Seconds INR (0.9-1.1) APTT (21.0-31.0) Seconds PTT Ratio Sodium (136-145) mmol/L Potassium (3.5-5.1) mmol/L Chloride (98-107) mmol/L Carbon Dioxide (21-32) mmol/L Anion Gap (3-11) BUN (6-23) mg/dl Creatinine (0.6-1.2) mg/dl Est Cr Clr Drug Dosing Est GFR ( Amer) ml/min Est GFR (Non-Af Amer) ml/min BUN/Creatinine Ratio (10-20) Glucose (70-99(Fasting)) mg/dl Calcium (8.6-10.3) mg/dl Magnesium (1.7-2.4) mg/dl Total Bilirubin (0.2-1.0) mg/dl AST (13-39) U/L ALT (7-52) U/L Alkaline Phosphatase (34-104) U/L Troponin I High Sens (0-14) pg/ml Total Protein (6.0-8.3) gm/dl Albumin (3.4-5.0) gm/dl Globulin (2.5-4.0) gm/dl Albumin/Globulin Ratio (0.9-2) TSH (0.300-4.500) uIu/ml Urine Color Yellow Urine Appearance Clear (Clear) Urine pH 6.5 (4.5-7.5) Ur Specific [place] 1.019 (1.000-1.030) Urine Protein Negative (Negative) Urine Glucose (UA) Negative (Negative) Urine Ketones Negative (Negative) Urine Blood Negative (Negative) Urine Nitrite Negative (Negative) Urine Bilirubin Negative (Negative) Urine Urobilinogen Negative (Negative) Ur Leukocyte Esterase Trace H (Negative) Urine WBC (Auto) 5-10 H (0-5) /hpf Urine RBC (Auto) 0-4 (0-4) /hpf U Hyaline Cast (Auto) 1-5 (0-5) /lpf U Epithel Cells (Auto) >30 H (0-5) /lpf Urine Bacteria (Auto) Negative (Negative) SARS-CoV-2, RNA, NAAT NEGATIVE (NEGATIVE) Blood Type A Positive Blood Type Recheck Antibody Screen NEGATIVE Crossmatch See Detail 12/17/22 12/17/22 12/17/22 Range/Units 13:27 13:27 13:27 WBC (4.8-10.8) K/ul RBC (4.20-5.40) M/uL Hgb (12.0-16.0) g/dl Hct (37.0-47.0) % MCV (80.0-100.0) fL MCH (25.0-34.0) pg MCHC (32.0-36.0) g/dL RDW Std Deviation (36.4-46.3) fL RDW Coeff of Cat (11.5-14.5) % Plt Count (130-400) K/uL MPV (9.4-12.4) fL Immature Gran % (Auto) % Neut % (Auto) % Lymph % (Auto) % [place] % (Auto) % Eos % (Auto) % Baso % (Auto) % Neut # (Auto) (1.40-6.50) K/uL Lymph # (Auto) (1.2-3.4) K/uL [place] # (Auto) (0.11-0.59) K/uL Eos # (Auto) (0-0.50) K/uL Baso # (Auto) (0-0.2) K/uL Immature Gran # (Auto) (0.01-0.20) K/uL Hypochromasia Anisocytosis PT 10.9 (9.0-12.0) Seconds INR 1.0 (0.9-1.1) APTT 23.1 (21.0-31.0) Seconds PTT Ratio 0.8 Sodium 141 (136-145) mmol/L Potassium 3.8 (3.5-5.1) mmol/L Chloride 107 (98-107) mmol/L Carbon Dioxide 28 (21-32) mmol/L Anion Gap 6 (3-11) BUN 23 (6-23) mg/dl Creatinine 0.92 (0.6-1.2) mg/dl Est Cr Clr Drug Dosing Not Reportable Est GFR ( Amer) 69.1 ml/min Est GFR (Non-Af Amer) 59.6 ml/min BUN/Creatinine Ratio 25.0 H (10-20) Glucose 110 H (70-99(Fasting)) mg/dl Calcium 8.3 L (8.6-10.3) mg/dl Magnesium 2.5 H (1.7-2.4) mg/dl Total Bilirubin 0.4 (0.2-1.0) mg/dl AST 10 L (13-39) U/L ALT 8 (7-52) U/L Alkaline Phosphatase 48 (34-104) U/L Troponin I High Sens 4.5 (0-14) pg/ml Total Protein 6.1 (6.0-8.3) gm/dl Albumin 3.7 (3.4-5.0) gm/dl Globulin 2.4 L (2.5-4.0) gm/dl Albumin/Globulin Ratio 1.5 (0.9-2) TSH 2.941 (0.300-4.500) uIu/ml Urine Color Urine Appearance (Clear) Urine pH (4.5-7.5) Ur Specific [place] (1.000-1.030) Urine Protein (Negative) Urine Glucose (UA) (Negative) Urine Ketones (Negative) Urine Blood (Negative) Urine Nitrite (Negative) Urine Bilirubin (Negative) Urine Urobilinogen (Negative) Ur Leukocyte Esterase (Negative) Urine WBC (Auto) (0-5) /hpf Urine RBC (Auto) (0-4) /hpf U Hyaline Cast (Auto) (0-5) /lpf U Epithel Cells (Auto) (0-5) /lpf Urine Bacteria (Auto) (Negative) SARS-CoV-2, RNA, NAAT (NEGATIVE) Blood Type Blood Type Recheck Antibody Screen Crossmatch 12/17/22 Range/Units 13:27 WBC 8.72 (4.8-10.8) K/ul RBC 3.48 L (4.20-5.40) M/uL Hgb 7.6 L (12.0-16.0) g/dl Hct 26.8 L (37.0-47.0) % MCV 77.0 L (80.0-100.0) fL MCH 21.8 L (25.0-34.0) pg MCHC 28.4 L (32.0-36.0) g/dL RDW Std Deviation 45.0 (36.4-46.3) fL RDW Coeff of Cat 16.2 H (11.5-14.5) % Plt Count 383 (130-400) K/uL MPV 9.4 (9.4-12.4) fL Immature Gran % (Auto) 0.8 % Neut % (Auto) 59.5 % Lymph % (Auto) 27.5 % [place] % (Auto) 9.4 % Eos % (Auto) 2.5 % Baso % (Auto) 0.3 % Neut # (Auto) 5.18 (1.40-6.50) K/uL Lymph # (Auto) 2.40 (1.2-3.4) K/uL [place] # (Auto) 0.82 H (0.11-0.59) K/uL Eos # (Auto) 0.22 (0-0.50) K/uL Baso # (Auto) 0.03 (0-0.2) K/uL Immature Gran # (Auto) 0.07 (0.01-0.20) K/uL Hypochromasia Present Anisocytosis Present PT (9.0-12.0) Seconds INR (0.9-1.1) APTT (21.0-31.0) Seconds PTT Ratio Sodium (136-145) mmol/L Potassium (3.5-5.1) mmol/L Chloride (98-107) mmol/L Carbon Dioxide (21-32) mmol/L Anion Gap (3-11) BUN (6-23) mg/dl Creatinine (0.6-1.2) mg/dl Est Cr Clr Drug Dosing Est GFR ( Amer) ml/min Est GFR (Non-Af Amer) ml/min BUN/Creatinine Ratio (10-20) Glucose (70-99(Fasting)) mg/dl Calcium (8.6-10.3) mg/dl Magnesium (1.7-2.4) mg/dl Total Bilirubin (0.2-1.0) mg/dl AST (13-39) U/L ALT (7-52) U/L Alkaline Phosphatase (34-104) U/L Troponin I High Sens (0-14) pg/ml Total Protein (6.0-8.3) gm/dl Albumin (3.4-5.0) gm/dl Globulin (2.5-4.0) gm/dl Albumin/Globulin Ratio (0.9-2) TSH (0.300-4.500) uIu/ml Urine Color Urine Appearance (Clear) Urine pH (4.5-7.5) Ur Specific [place] (1.000-1.030) Urine Protein (Negative) Urine Glucose (UA) (Negative) Urine Ketones (Negative) Urine Blood (Negative) Urine Nitrite (Negative) Urine Bilirubin (Negative) Urine Urobilinogen (Negative) Ur Leukocyte Esterase (Negative) Urine WBC (Auto) (0-5) /hpf Urine RBC (Auto) (0-4) /hpf U Hyaline Cast (Auto) (0-5) /lpf U Epithel Cells (Auto) (0-5) /lpf Urine Bacteria (Auto) (Negative) SARS-CoV-2, RNA, NAAT (NEGATIVE) Blood Type Blood Type Recheck Antibody Screen Crossmatch
--- NOTE | 2022-12-18 12:34 | Hospitalist Progress Note ---
Date of Service December 18, 2022 Assessment & Plan (1) Rectal bleeding: (2) Hemorrhoids: (3) Anemia due to acute blood loss: Plan: probably related to her hemorrhoids precipitated by her constipation and fleet enema. Seen by GI- plan for colonoscopy tomorrow. Clears today, bowel prep today, npo after midnight S/p 2 U PRBC yesterday, trend Hb Will start on iron supplementation (4) Sick sinus syndrome: Plan: stable rate controlled with metoprolol (5) HTN, goal below 140/90: Plan: continue metoprolol (6) Prediabetes: (7) CKD (chronic kidney disease) stage 3, GFR 30-59 ml/min: (8) A-fib: Plan: rate controlled. Patient was advised eliquis in the past but declined because of her bleeding. She is on toprol qid. Follows with cardiology (9) Rheumatoid arthritis: Plan: continue prednisone. continue hydrocodone prn for pain (10) Constipation: Plan: Chronic issue. Takes milk of magnesia q10 days or so and occasional fleet enema. Discussed measures to treat it. Plan DVT ppx- SCD. Chemoppx C/I with gi bleeding Dispo- Colonoscopy tomorrow Admission and Anticipated Discharge Date Admission Date: December 17, 2022 Subjective Patient was seen and examined at bedside. She states she is weak and tired because of the blood loss. States she has dealt with constipation for a long time and nothing works for her except for milk of magnesia which she takes about every 10 days and helps her for about 3 days or so. She used Fleet enema on Saturday which precipitated the rectal bleeding which was significant. Denies any more bleeding since coming to the hospital. Denies any bowel movements. No fever, chills, chest pain, shortness of breath, nausea or vomiting Review of Systems Review of Systems: All systems reviewed & are unremarkable except as noted in Subjective Physical Exam Physical Exam: General: Lying comfortably in bed, not in distress, on room air HEENT: EOMI, ALYSIA, MMM Chest: Clear breath sounds bilaterally, no wheezes or crackles CVS: Regular rate and rhythm, normal heart sounds, no murmur Abdomen: Soft, non tender, not distended, normal bowel sounds Neuro: Awake, alert, oriented, conversing well, non focal Extremities: No cyanosis, clubbing or edema Results & Data Results & Data Vital Signs (Past 12 Hours) Vital Signs Temp Pulse Pulse Resp BP BP Pulse Ox 12/18/22 11:44 36.7 C 78 20 145/78 H 95 12/18/22 07:38 36.6 C 76 16 145/87 H 94 12/18/22 01:53 37.4 C 77 20 136/84 93 12/18/22 01:20 36.6 C 78 22 153/75 H 96 O2 Del Method 12/18/22 11:44 Room Air 12/18/22 07:38 Room Air 12/18/22 01:53 12/18/22 01:20 Laboratory Results Short CBC 12/17/22 12/18/22 Range/Units 13:27 03:31 WBC 8.72 7.68 (4.8-10.8) K/ul Hgb 7.6 L 9.2 L (12.0-16.0) g/dl Hct 26.8 L 29.7 L (37.0-47.0) % Plt Count 383 309 (130-400) K/uL BMP 12/17/22 12/18/22 13:27 03:31 Sodium 141 142 Potassium 3.8 4.1 Chloride 107 109 H Carbon Dioxide 28 26 BUN 23 15 Creatinine 0.92 0.89 Glucose 110 H 102 H Calcium 8.3 L 8.0 L Liver Function 12/17/22 Range/Units 13:27 Total Bilirubin 0.4 (0.2-1.0) mg/dl AST 10 L (13-39) U/L ALT 8 (7-52) U/L Alkaline Phosphatase 48 (34-104) U/L Albumin 3.7 (3.4-5.0) gm/dl Urine 12/17/22 Range/Units 15:29 Urine Color Yellow Urine Appearance Clear (Clear) Urine pH 6.5 (4.5-7.5) Ur Specific [place] 1.019 (1.000-1.030) Urine Protein Negative (Negative) Urine Glucose (UA) Negative (Negative) Medications Administered Current Inpatient Medications Acetaminophen (Acetaminophen 325 Mg Tab) 650 mg PO Q4H PRN PRN Reason: Pain or Fever Stop: 01/16/23 19:24 Hydrocodone Bitart/Acetaminophen (Hydrocodone/Acetamophen 5/325mg Tab) 1 tab PO Q8 PRN PRN Reason: Pain Stop: 12/31/22 19:24 Last Admin: 12/18/22 08:29 Dose: 1 tab Alprazolam (Alprazolam 0.25 Mg Tablet) 0.25 mg PO BID PRN PRN Reason: Anxiety Stop: 01/16/23 19:24 Last Admin: 12/17/22 21:40 Dose: 0.25 mg Pantoprazole Sodium 40 mg/ (Syringe) 10 mls @ 5 mls/min IV BID [facility] Stop: 01/16/23 20:59 Last Admin: 12/18/22 08:25 Dose: 5 mls/min Sodium Chloride (Nss 1000ml) 1,000 mls @ 75 mls/hr IV .[id number] [facility] Stop: 12/18/22 22:04 Last Admin: 12/18/22 08:26 Dose: 75 mls/hr Metoprolol Succinate (Metoprolol Succ 25mg Ext Rel Tab) 25 mg PO QID [facility] Stop: 01/16/23 16:59 Last Admin: 12/18/22 12:21 Dose: 25 mg Polyethylene Glycol/Electrolytes (Lavage Solution 4000ml) 16 dose PO TODAY@1630 [facility] Stop: 12/18/22 16:31 Prednisone (Prednisone 5 Mg Tab) 5 mg PO DAILY [facility] Stop: 01/17/23 08:59 Last Admin: 12/18/22 08:25 Dose: 5 mg
[2022-12-18] MEDS: ALPRAZolam 0.25 MG TABLET PO PRN (14:56)
[2022-12-18] MEDS ORDERED: LAVAGE SOLUTION 4000ML PO SCH (16:30)
--- NOTE | 2022-12-18 18:46 | Electrocardiogram Report ---
Test Reason : Blood Pressure : / mmHG Vent. Rate : 073 BPM Atrial Rate : 089 BPM P-R Int : 000 ms QRS Dur : 074 ms QT Int : 404 ms P-R-T Axes : 000 013 045 degrees QTc Int : 445 ms Atrial fibrillation Low voltage QRS Nonspecific T wave abnormality Abnormal ECG When compared with ECG of 13-AUG-2022 17:16, No significant change was found Confirmed by Kain Moss ([id number]) on 12/18/2022 6:46:23 PM Referred By: REFERRED SELF Confirmed By:Kain Moss
[2022-12-18 21:22] LABS: Hematocrit (blood only) 30.9 % (37.0-47.0); Hemoglobin 9.5 g/dl (12.0-16.0)
[2022-12-19] MEDS: ALPRAZolam 0.25 MG TABLET PO PRN ×2 (00:01→20:24)
[2022-12-19 07:21] LABS: Hematocrit (blood only) 29.5 % (37.0-47.0); Hemoglobin 9.1 g/dl (12.0-16.0); Mean Corpuscular Hemoglobin 24.2 pg (25.0-34.0); Mean Corpuscular Hgb Conc 30.8 g/dL (32.0-36.0); Mean Corpuscular Volume 78.5 fL (80.0-100.0); Mean Platelet Volume 8.9 fL (9.4-12.4); Nucleated RBC # (auto) 0.02 K/uL (0-0.12); Nucleated RBC % (auto) 0.2 %; Platelet Count 297 K/uL (130-400); RDW Coefficient of Variation 17.3 % (11.5-14.5); RDW Standard Deviation 48.9 fL (36.4-46.3); Red Blood Count 3.76 M/uL (4.20-5.40); White Blood Count 8.47 K/ul (4.8-10.8)
--- NOTE | 2022-12-19 07:53 | Anesthesiology Consultation ---
Date of Service December 19, 2022 Assessment & Plan (1) Encounter for pre-operative examination: Chart Review Chart Review: Acceptable Risk for Surgery, Patient NOT seen in Pre Admission Testing and entry examiner initiated Consults Requested none History Surgery Operation Date: 12/19/22 16:30 Proposed Procedures p Colonoscopy Dr Fredis Mcneal MD Height/Weight Height: 5 ft 5 in Weight: 117.4 kg Allergies Allergy/AdvReac Type Severity Reaction Status Date / Time nickel Allergy Mild SKIN Verified 12/17/22 15:43 IRRITATION ciprofloxacin [From Cipro] AdvReac Severe DESTROYED Verified 12/17/22 15:43 LIGAMENTS IN KNEE naproxen AdvReac Intermediate gi upset Verified 12/17/22 15:43 rofecoxib AdvReac Intermediate irregular Verified 12/17/22 15:43 heartbeat lisinopril AdvReac Cough Verified 12/17/22 17:09 Medications Home Medications Medication Instructions Recorded Confirmed Last Taken alprazolam 0.25 mg tablet 0.25 mg PO BID PRN Anxiety 12/17/22 12/17/22 12/17/22 08:00 hydrocodone 5 mg-acetaminophen 325 1 tab PO Q8 PRN Pain 12/17/22 12/17/22 12/17/22 07:00 mg tablet metoprolol succinate 25 mg 25 mg PO QID 12/17/22 12/17/22 12/17/22 07:00 tablet,extended release 24 hr prednisone 5 mg tablet 5 mg PO DAILY 12/17/22 12/17/22 12/16/22 Active Medications Generic Name Dose Route Start Last Admin Trade Name Freq PRN Reason Stop Dose Admin Hydrocodone Bitart/Acetaminophen 1 tab 12/17/22 19:25 12/18/22 08:29 Hydrocodone/Acetamophen 5/325mg Tab PO 12/31/22 19:24 1 tab Q8 PRN Administration Pain Alprazolam 0.25 mg 12/17/22 19:25 12/19/22 00:01 Alprazolam 0.25 Mg Tablet PO 01/16/23 19:24 0.25 mg BID PRN Administration Anxiety Pantoprazole Sodium 40 mg/ 10 mls @ 5 mls/min 12/17/22 21:00 12/18/22 20:11 Syringe IV 01/16/23 20:59 5 mls/min BID DESIRAE Administration Metoprolol Succinate 25 mg 12/17/22 17:00 12/18/22 20:12 Metoprolol Succ 25mg Ext Rel Tab PO 01/16/23 16:59 25 mg QID DESIRAE Administration Prednisone 5 mg 12/18/22 09:00 12/18/22 08:25 Prednisone 5 Mg Tab PO 01/17/23 08:59 5 mg DAILY DESIRAE Administration Past Medical History Medical History (Updated 12/19/22 @ 07:55 by Sam Church MD) A-fib Anxiety Breast cancer CKD (chronic kidney disease) stage 3, GFR 30-59 ml/min Encounter for pre-operative examination HTN, goal below 140/90 Lymphedema Prediabetes Rheumatoid arthritis Sick sinus syndrome Past Family History Family History Mother Cancer Diabetes Brother Cancer Daughter Breast cancer Father Diabetes Past Surgical History Surgical History History of ankle surgery History of D&C History of lumpectomy of left breast History of tubal ligation Social History Smoking Status: Never smoker Hx Alcohol Use: No Hx Substance Use: No Physical Exam Vital Signs Last Vital Signs Temp 36.7 C 12/19/22 07:46 Pulse 77 12/19/22 07:46 Resp 20 12/19/22 07:46 BP 129/83 12/19/22 07:46 Pulse Ox 95 12/19/22 07:46 O2 Del Method Room Air 12/19/22 07:46 O2 Flow Rate 6 12/17/22 13:20 Testing Laboratory Results 12/19/22 07:07 PT 10.9 Seconds (9.0-12.0) 12/17/22 13:27 INR 1.0 (0.9-1.1) 12/17/22 13:27 APTT 23.1 Seconds (21.0-31.0) 12/17/22 13:27 Urine Color Yellow 12/17/22 15:29 Urine Appearance Clear (Clear) 12/17/22 15:29 Urine pH 6.5 (4.5-7.5) 12/17/22 15:29 Ur Specific [place] 1.019 (1.000-1.030) 12/17/22 15:29 Urine Protein Negative (Negative) 12/17/22 15:29 Urine Glucose (UA) Negative (Negative) 12/17/22 15:29 Urine Ketones Negative (Negative) 12/17/22 15:29 Urine Nitrite Negative (Negative) 12/17/22 15:29 Ur Leukocyte Esterase Trace (Negative) H 12/17/22 15:29 Urine WBC (Auto) 5-10 /hpf (0-5) H 12/17/22 15:29 Urine RBC (Auto) 0-4 /hpf (0-4) 12/17/22 15:29 U Hyaline Cast (Auto) 1-5 /lpf (0-5) 12/17/22 15:29 U Epithel Cells (Auto) >30 /lpf (0-5) H 12/17/22 15:29 Urine Bacteria (Auto) Negative (Negative) 12/17/22 15:29 Blood Type A Positive 12/17/22 14:28 Antibody Screen NEGATIVE 12/17/22 14:28 Electrocardiogram Date: 12/17/22 Test Reason : Blood Pressure : / mmHG Vent. Rate : 073 BPM Atrial Rate : 089 BPM P-R Int : 000 ms QRS Dur : 074 ms QT Int : 404 ms P-R-T Axes : 000 013 045 degrees QTc Int : 445 ms Atrial fibrillation Low voltage QRS Nonspecific T wave abnormality Abnormal ECG When compared with ECG of 13-AUG-2022 17:16, No significant change was found Confirmed by Kain Moss ([id number]) on 12/18/2022 6:46:23 PM Chest X-Ray Date: 12/17/22 SINGLE VIEW CHEST CLINICAL HISTORY: Generalized weakness. FINDINGS: An AP, portable, upright chest radiograph is compared to chest x-ray and chest CT dated 03/08/2012. The heart is enlarged. The pulmonary vasculature is noncongested. There is chronic elevation of the right hemidiaphragm with bibasilar atelectasis. No airspace consolidation or large pleural effusion is identified. No pneumothorax is seen. The skeletal structures are osteopenic. The bony thorax is grossly intact. IMPRESSION: Mild cardiomegaly with no acute cardiopulmonary abnormality.
[2022-12-19 07:55] LABS: BUN Creatinine Ratio 11.8 (10-20); Calcium 8.2 mg/dl (8.6-10.3); Creatinine Clr Calc Pharmacy 68.8 ml/min; Est GFR (African American) 75.5 ml/min; Est GFR (Non-African American) 65.2 ml/min; Potassium 3.8 mmol/L (3.5-5.1)
[2022-12-19] MEDS: predniSONE 5 MG TAB PO SCH (08:28)
[2022-12-19] MEDS: METOPROLOL SUCC 25MG EXT REL TAB PO SCH ×4 (08:28→20:24)
[2022-12-19] MEDS: PANTOprazole 40 MG in SYRINGE 0 ML IV SCH ×2 (08:28→20:24)
--- NOTE | 2022-12-19 10:40 | Hospitalist Progress Note ---
Date of Service December 19, 2022 Assessment & Plan (1) Rectal bleeding: Plan: per previous hospitalist notes with addendum: (2) Hemorrhoids: (3) Anemia due to acute blood loss: Plan: probably related to her hemorrhoids precipitated by her constipation and fleet enema. Seen by GI- plan for colonoscopy tomorrow. Clears today, bowel prep today, npo after midnight S/p 2 U PRBC yesterday, trend Hb Will start on iron supplementation 5/3 Still having hematochezia For colonoscopy this morning Repeat hemoglobin this afternoon Anemia panel ordered (4) Sick sinus syndrome: Plan: stable rate controlled with metoprolol (5) HTN, goal below 140/90: Plan: continue metoprolol (6) Prediabetes: (7) CKD (chronic kidney disease) stage 3, GFR 30-59 ml/min: (8) A-fib: Plan: rate controlled. Patient was advised eliquis in the past but declined because of her bleeding. She is on toprol qid. Follows with cardiology (9) Rheumatoid arthritis: Plan: continue prednisone. continue hydrocodone prn for pain (10) Constipation: Plan: Chronic issue. Takes milk of magnesia q10 days or so and occasional fleet enema. /3 May benefit from taking lactulose low-dose daily to prevent hemorrhoidal bleed Plan DVT ppx- SCD. Chemoppx C/I with gi bleeding Dispo-pending Patient lives alone at home, will order PT and OT evaluation Admission and Anticipated Discharge Date Admission Date: December 17, 2022 Subjective Follow-up for lower GI bleed, etc. Patient seen resting in bed, sitting up, not in distress States she has had multiple bloody bowel movements overnight and twice this morning Denies abdominal pain, pain with bowel movements Denies chest pain, palpitations, dizziness, shortness of breath No other symptoms Review of Systems Review of Systems: all noted and negative except for above Physical Exam Physical Exam: General- oriented x 3, not in distress, speaks in sentences with no effort or accessory muscle use Eyes- anicteric Neck- no JVD Lungs- clear breath sounds bilaterally, no rales/wheezes Heart- normal rate, regular rhythm; no murmurs Abdomen- normal bowel sounds, nondistended, soft, nontender Extremities- no pretibial edema, no calf tenderness Neuro- alert, oriented x 3; no gross focal neurologic deficits Skin- warm & dry Results & Data Results & Data Vital Signs (Past 12 Hours) Vital Signs Temp Pulse Resp BP Pulse Ox O2 Del Method 12/19/22 07:46 36.7 C 77 20 129/83 95 Room Air 12/19/22 03:27 36.8 C 74 18 119/74 93 Room Air all noted and reviewed including below
[2022-12-19] MEDS ORDERED: PROPOFOL IV EMULSION 10 MG/ML 20 ML VIAL IV ONE (11:19)
--- NOTE | 2022-12-19 11:36 | History & Physical Report ---
Date of Service December 19, 2022 Assessment & Plan (1) Rectal bleeding: Plan: stable for colonoscopy Admission and Anticipated Discharge Date Admission Date: December 17, 2022 History of Present Illness Chief Complaint: rectal bleeding Primary Care Provider: Landon Martinez DO pt with rectal bleeding for colonoscopy Allergies Allergy/AdvReac Type Severity Reaction Status Date / Time nickel Allergy Mild SKIN Verified 12/19/22 10:48 IRRITATION ciprofloxacin [From Cipro] AdvReac Severe DESTROYED Verified 12/19/22 10:48 LIGAMENTS IN KNEE naproxen AdvReac Intermediate gi upset Verified 12/19/22 10:48 rofecoxib AdvReac Intermediate irregular Verified 12/19/22 10:48 heartbeat lisinopril AdvReac Cough Verified 12/19/22 10:48 Home Medications Medication Instructions Recorded Confirmed Type alprazolam 0.25 mg tablet 0.25 mg PO BID PRN Anxiety 12/17/22 12/17/22 History hydrocodone 5 mg-acetaminophen 325 1 tab PO Q8 PRN Pain 12/17/22 12/17/22 History mg tablet metoprolol succinate 25 mg 25 mg PO QID 12/17/22 12/17/22 History tablet,extended release 24 hr prednisone 5 mg tablet 5 mg PO DAILY 12/17/22 12/17/22 History Past Med/Surg History Medical History (Updated 12/19/22 @ 11:37 by Bradley Mcneal MD) A-fib Anxiety Breast cancer CKD (chronic kidney disease) stage 3, GFR 30-59 ml/min Encounter for pre-operative examination HTN, goal below 140/90 Lymphedema Prediabetes Rheumatoid arthritis Sick sinus syndrome Surgical History History of ankle surgery History of D&C History of lumpectomy of left breast History of tubal ligation Family History Mother Cancer Diabetes Brother Cancer Daughter Breast cancer Father Diabetes Social History Smoking Status: Never smoker Hx Alcohol Use: No Hx Substance Use: No Preferred Language: Croatian Communication Ability: Effective Drafter Chief Design Required: No Beliefs That Will Affect Care: None Current Living Situation: Alone Other Information That Helps Us Care for You: No Feels Safe at Home: Yes Safety Concerns: Feels Safe At This Time Assistive Devices: Walker and Wheelchair Physical Exam Constitutional: WD/WN, vitals as above Respiratory: normal respiratory effort, lungs clear to auscultation Cardiovascular: RRR, no murmur, no edema Gastrointestinal (Abdomen): normal bowel sounds, soft, nontender, no hepatosplenomegaly Results & Data Vital Signs (Past 12 Hours) Vital Signs Temp Pulse Pulse Resp BP BP Pulse Ox 12/19/22 10:48 36.4 C L 83 18 167/93 H 97 12/19/22 07:46 36.7 C 77 20 129/83 95 12/19/22 03:27 36.8 C 74 18 119/74 93 O2 Del Method 12/19/22 10:48 Room Air 12/19/22 07:46 Room Air 12/19/22 03:27 Room Air Code Status & VTE Plan VTE Prophylaxis Plan VTE Prophylaxis will be ordered: Yes Reason for no VTE drug order: Treatment not tolerated
--- NOTE | 2022-12-19 13:02 | Anesthesiology Progress Note ---
Date of Service December 19, 2022 Anesthesia Post Procedure Vital Signs Vital Signs: Temp Pulse Pulse Pulse Resp BP BP 12/19/22 12:43 88 16 158/80 H 12/19/22 12:28 92 H 16 148/70 H 12/19/22 12:13 100 H 14 122/56 L 12/19/22 10:48 36.4 C L 83 18 167/93 H 12/19/22 07:46 36.7 C 77 20 129/83 12/19/22 03:27 36.8 C 74 18 119/74 12/18/22 22:05 69 12/18/22 22:35 36.9 C 76 18 143/73 H 12/18/22 19:59 36.8 C 79 18 129/83 12/18/22 15:40 36.8 C 67 20 134/84 Pulse Ox O2 Del Method 12/19/22 12:43 93 Room Air 12/19/22 12:28 93 Room Air 12/19/22 12:13 96 Room Air 12/19/22 10:48 97 Room Air 12/19/22 07:46 95 Room Air 12/19/22 03:27 93 Room Air 12/18/22 22:05 12/18/22 22:35 96 Room Air 12/18/22 19:59 95 Room Air 12/18/22 15:40 92 Room Air Pain Intensity Generalized: Pain Intensity: 6 Transfer of Care Handoff Completed per policy Notes Mental Status: alert / awake / arousable and participated in evaluation Patient Amnestic to Procedure: Yes Nausea / Vomiting: adequately controlled Pain: adequately controlled Airway Patency, RR, SpO2: stable & adequate BP & HR: stable & adequate Hydration State: stable & adequate Anesthetic Complications: no major complications apparent
--- NOTE | 2022-12-19 13:06 | GI REPORT ---
Patient Name: Iliana Urbano Procedure Date: 12/19/2022 11:34 AM Date of : 1945 Admit Type: Inpatient Age: 76 Gender: Female Attending MD: Bradley Mcneal MD, Procedure: Colonoscopy Providers: Bradley Mcneal MD Referring MD: He Jimenez Indications: Hematochezia, Rectal bleeding Medicines: See the Anesthesia note for documentation of the administered medications Complications: No immediate complications. Estimated Blood Loss: Estimated blood loss was minimal. Procedure: Pre-Anesthesia Assessment: - Prior to the procedure, a History and Physical was performed, and patient medications, allergies and sensitivities were reviewed. The patient's tolerance of previous anesthesia was reviewed. - The risks and benefits of the procedure and the sedation options and risks were discussed with the patient. All questions were answered and informed consent was obtained. - Patient identification and proposed procedure were verified prior to the procedure by the physician and the nurse. The procedure was verified in the pre-procedure area. - Pre-procedure physical examination revealed no contraindications to sedation. - After reviewing the risks and benefits, the patient was deemed in satisfactory condition to undergo the procedure. After I obtained informed consent, the scope was passed under direct vision. Throughout the procedure, the patient's blood pressure, pulse, and oxygen saturations were monitored continuously. The Scope was introduced through the anus and advanced to the cecum, identified by appendiceal orifice and ileocecal valve. The colonoscopy was performed without difficulty. The patient tolerated the procedure well. The quality of the bowel preparation was good. Findings: Hemorrhoids were found on perianal exam. The terminal ileum appeared normal. A 10 mm polyp was found at 15 cm proximal to the anus. The polyp was pedunculated. The polyp was removed with a hot snare. Resection and retrieval were complete. Verification of patient identification for the specimen was done by the physician and nurse using the patient's name and medical record number. Estimated blood loss was minimal. External and internal hemorrhoids were found during retroflexion. The hemorrhoids were large. The exam was otherwise without abnormality on direct and retroflexion views. Impression: - Hemorrhoids found on perianal exam. - The examined portion of the ileum was normal. - One 10 mm polyp at 15 cm proximal to the anus, removed with a hot snare. Resected and retrieved. - External and internal hemorrhoids. - The examination was otherwise normal on direct and retroflexion views. Recommendation: - Await pathology results. - Discharge patient to home. Bradley Mcneal M.D. Bradley Mcneal MD 12/19/2022 1:05:27 PM This report has been signed electronically. Note Initiated On: 12/19/2022 11:34 AM Number of Addenda: 0 I attest to the content of the Intraoperative Record and orders documented therein, exceptions below {[id number]}
[2022-12-19] MEDS: HYDROCODONE/ACETAMOPHEN 5/325MG TAB PO PRN (13:08)
[2022-12-19 14:48] LABS: Hematocrit (blood only) 30.7 % (37.0-47.0); Hemoglobin 9.5 g/dl (12.0-16.0)
--- NOTE | 2022-12-19 15:51 | Surgery Consultation ---
This case was discussed with the surgical PA. I agree with the plan. Date of Consultation December 19, 2022 Assessment & Plan (1) Rectal bleeding: This is a 76yF with a PMH of afib not on anticoagulation, CKD, rheumatoid arthritis on prednisone, SSS who presents to the [facility] ED on 12/17/22 after she passed out in the kitchen and feeling weak. This is likely secondary to blood loss anemia as she was dealing with rectal bleeding thought to be secondary from her hemorrhoids she deals with from time to time. Although this happens and self resolves for her every couple of months, this was the worse episode of bleeding she has experienced. On admission Hbg noted to be 7.6 and she received 2 units of pRBC with appropriate rise to >9. Today Hbg 9.1 (9.5). Due to ongoing bleeding she was seen and evaluated by GI who performed colonoscopy today. They noted a mix of internal and external hemorrhoids and a single polyp that was removed. On examination I was able to appreciated her external hemorrhoids which were noted to be non inflamed, excoriated, or tender. There was no blood visible on my examination. Patient reports she had some light bleeding this AM but none since. Her vital signs are stable. The patient is not on any blood thinning medications. Recommended a course of supportive care as we continue to monitor her BMs and Hbg counts closely. She should avoid any straining as possible, keep well hydrated and drink plenty of water, avoid constipation and remain on bowel regimen, and eat a diet with fiber. May benefit from Anusol suppositories as she wishes. She has no complaints of pain or discomfort in the area. There are no plans for acute surgical intervention for her hemorrhoids at this time unless bleeding becomes more severe and patient unstable. She may follow up with us as an outpatient to discuss options for her hemorrhoids if she wishes vs a colorectal surgeon. We will follow, but no plans for surgery at this time. (2) Hemorrhoids: History of Present Illness Attending Physician: He Jimenez MD History of Present Illness This is a 76yF with a PMH of afib not on anticoagulation, CKD, rheumatoid arthritis on prednisone, SSS who presents to the [facility] ED on 12/17/22 after she passed out in the kitchen and felt weak. Patient reports feeling constipated over the weekend and took some Milk of Magnesia which usually always works for her. It did not help her to have a BM, therefore she tried a fleets enema. After the enema she noted to have a decent amount of rectal bleeding with maroon clots. Around this time she was in the kitchen and nearly passed out which prompted her to come into the ER for further evaluation. She underwent a CT a/p that showed equivocal mild soft tissue fullness in the partially imaged anus. Patient states she has a history of hemorrhoids dating back over 30 years. She has had colonoscopy's in the past noting their presence but never was connected with someone to offer her a surgical opinion. She states she has intermittent bleeding from them every couple of months that lasts a couple days, but that this last episode was the most severe for her. When this happens she says she tr ies cool compresses and preparation H, but was out of prep H at this time. She is not on any blood thinners for her afib given her intermittent rectal bleeding. She denies any pain or symptoms of the hemorrhoids outside of bleeding at the moment. She states that the bleeding seems to be improving. Allergies Allergy/AdvReac Type Severity Reaction Status Date / Time nickel Allergy Mild SKIN Verified 12/19/22 10:48 IRRITATION ciprofloxacin [From Cipro] AdvReac Severe DESTROYED Verified 12/19/22 10:48 LIGAMENTS IN KNEE naproxen AdvReac Intermediate gi upset Verified 12/19/22 10:48 rofecoxib AdvReac Intermediate irregular Verified 12/19/22 10:48 heartbeat lisinopril AdvReac Cough Verified 12/19/22 10:48 Home Medications Medication Instructions Recorded Confirmed Type alprazolam 0.25 mg tablet 0.25 mg PO BID PRN Anxiety 12/17/22 12/17/22 History hydrocodone 5 mg-acetaminophen 325 1 tab PO Q8 PRN Pain 12/17/22 12/17/22 History mg tablet metoprolol succinate 25 mg 25 mg PO QID 12/17/22 12/17/22 History tablet,extended release 24 hr prednisone 5 mg tablet 5 mg PO DAILY 12/17/22 12/17/22 History Patient History Medical History A-fib Anxiety Breast cancer CKD (chronic kidney disease) stage 3, GFR 30-59 ml/min Encounter for pre-operative examination HTN, goal below 140/90 Lymphedema Prediabetes Rheumatoid arthritis Sick sinus syndrome Surgical History History of ankle surgery History of D&C History of lumpectomy of left breast History of tubal ligation Family History Mother Cancer Diabetes Brother Cancer Daughter Breast cancer Father Diabetes Social History Smoking Status: Never smoker Hx Alcohol Use: No Hx Substance Use: No Preferred Language: Ukrainian Communication Ability: Effective Sales Support Specialist Required: No Beliefs That Will Affect Care: None Current Living Situation: Alone Other Information That Helps Us Care for You: No Feels Safe at Home: Yes Safety Concerns: Feels Safe At This Time Assistive Devices: Walker and Wheelchair Review of Systems Constitutional: + weakness; no fever and no chills "passed out in kitchen" Respiratory: + dyspnea (mild) Gastrointestinal: no abdominal pain no hemorrhoidal pain, blood per rectum with each BM mostly dark/maroon colored with clots Physical Exam Physical Exam: awake/alert, no distress Constitutional: well developed, well nourished and + obese Respiratory: normal respiratory effort Gastrointestinal (Abdomen): Rectal Exam: + hemorrhoids; no rectal tenderness on rectal exam + external hemorrhoidal tissue noted, not inflamed or excoriated. no bleeding noted. no tenderness Results & Data Vital Signs (Past 12 Hours) Vital Signs Temp Pulse Pulse Resp BP BP Pulse Ox 12/19/22 15:40 36.3 C L 80 19 113/69 95 12/19/22 13:00 36.8 C 78 20 161/90 H 94 12/19/22 12:43 88 16 158/80 H 93 12/19/22 12:28 92 H 16 148/70 H 93 12/19/22 12:13 100 H 14 122/56 L 96 12/19/22 10:48 36.4 C L 83 18 167/93 H 97 12/19/22 07:46 36.7 C 77 20 129/83 95 O2 Del Method 12/19/22 15:40 Room Air 12/19/22 13:00 Room Air 12/19/22 12:43 Room Air 12/19/22 12:28 Room Air 12/19/22 12:13 Room Air 12/19/22 10:48 Room Air 12/19/22 07:46 Room Air Diagnostic Findings ABDOMEN AND PELVIS CT WITH IV CONTRAST CT DOSE: 2232.79 mGycm HISTORY: Acute pelvic pain with reported rectal bleeding rectal bleeding TECHNIQUE: Multiaxial CT images of the abdomen and pelvis were performed following the IV administration of 85 cc of Optiray, A dose lowering technique was utilized adhering to the principles of ALARA. COMPARISON STUDY: Mammography 03/25/2012. FINDINGS: There is a linear masslike focus in the medial superior quadrant of the left breast measuring 3.8 cm on image 49 series 5 located approximately 13 cm from the nipple. Mild cardiomegaly. Mild right hemidiaphragmatic elevation. Clear lung bases. No pneumatosis or pneumoperitoneum. The study is limited secondary to patient body habitus. Scattered calcifications are noted within the spleen. Calcifications are also within the splenic artery. Unremarkable pancreas, mildly contracted gallbladder and adrenal glands. Moderate right hemidiaphragmatic elevation. Unremarkable appearance of the liver. Mild cortical thinning of the kidneys without hydronephrosis or suspicious mass lesion. No filling defects identified within the opacified renal collecting systems. Unremarkable urinary bladder and uterus. Aorta and IVC are unremarkable. No lymphadenopathy identified. No bowel obstruction. The anus is only partially imaged however demonstrate soft tissue fullness. No bowel obstruction or bowel wall thickening identified. There is no ascites or mesenteric inflammation. Noninflamed appendix. Tiny fat filled umbilical hernia. Unremarkable soft tissues. No acute fracture. Degenerative changes of the shoulders and spine. IMPRESSION: 1. Equivocal mild soft tissue fullness in the partially imaged anus. Correlate with physical exam findings. 2. No bowel obstruction or pneumoperitoneum. 3. Incidental findings as above. ACT 112: Negative or not required by law. The above report was generated using voice recognition software. It may contain grammatical, syntax or spelling errors. Electronically signed by: Jersey Gaston M.D. 12/17/2022 3:35 PM PG Care Time/CCT Total # of Minutes Spent Total Time Spent with Patient: Total time spent is greater than 50% in coordination of care (as documented) at patient's floor/unit and/or counseling patient: Coding Level of Care Code 29222 INT INP/OBS CARE MIN Diagnoses Rectal bleeding K62.5 Hemorrhoids K64.9
[2022-12-20] MEDS: HYDROCODONE/ACETAMOPHEN 5/325MG TAB PO PRN (08:00)
[2022-12-20] MEDS: METOPROLOL SUCC 25MG EXT REL TAB PO SCH ×3 (08:01→16:23)
[2022-12-20] MEDS: predniSONE 5 MG TAB PO SCH (08:01)
[2022-12-20] MEDS: PANTOprazole 40 MG in SYRINGE 0 ML IV SCH (08:01)
--- NOTE | 2022-12-20 10:05 | Surgery Progress Note ---
Date of Service December 20, 2022 Assessment & Plan (1) Ischemic colitis: Plan: Symptoms have resolved. The patient is tolerating a diet and has continued to be without abdominal pain, nausea or fevers. Hypertensive Please call us back should the patient's abdominal status change. The patient states she may potentially be discharged today. The patient is arranging follow up with vascular surgery as an outpatient to arrange for revascularization. Admission and Anticipated Discharge Date Admission Date: December 17, 2022 Subjective Patient was seen this am. She continues to tolerate her diet without abdominal complaints, hematochezia or nausea. This am she c/o a headache and elevated blood pressure. Physical Exam Gastrointestinal (Abdomen): Percussion/Palpation: abdomen soft; abdomen nontender, no guarding and abdomen not rigid Results & Data Vital Signs (Past 12 Hours) Vital Signs Temp Pulse Pulse Resp BP Pulse Ox O2 Del Method 12/20/22 07:53 36.6 C 94 H 19 152/80 H 90 Room Air 12/20/22 03:14 61 18 127/82 93 Room Air 12/19/22 23:27 36.8 C 75 18 124/77 94 Room Air 12/19/22 23:19 69 PG Care Time/CCT Total # of Minutes Spent Total Time Spent with Patient: Total time spent is greater than 50% in coordination of care (as documented) at patient's floor/unit and/or counseling patient: Coding [place] [address] SUB INP/OBS CARE 1/25MIN Patient Type Established History Problem Focused Exam Problem Focused Medical Decision Making Straight Forward Diagnoses Ischemic colitis K55.9
[2022-12-20 10:17] LABS: Basophils # (auto) 0.04 K/uL (0-0.2); Basophils % (auto) 0.5 %; Eosinophils # (auto) 0.28 K/uL (0-0.50); Eosinophils % (auto) 3.7 %; Hematocrit (blood only) 29.7 % (37.0-47.0); Hemoglobin 8.7 g/dl (12.0-16.0); Immature Granulocytes # (auto) 0.04 K/uL (0.01-0.20); Immature Granulocytes % (auto) 0.5 %; Lymphocytes # (auto) 1.62 K/uL (1.2-3.4); Lymphocytes % (auto) 21.2 %; Mean Corpuscular Hemoglobin 23.8 pg (25.0-34.0); Mean Corpuscular Hgb Conc 29.3 g/dL (32.0-36.0); Mean Corpuscular Volume 81.4 fL (80.0-100.0); Mean Platelet Volume 9.1 fL (9.4-12.4); Monocytes # (auto) 0.87 K/uL (0.11-0.59); Monocytes % (auto) 11.4 %; Neutrophils # (auto) 4.78 K/uL (1.40-6.50); Neutrophils % (auto) 62.7 %; Platelet Count 305 K/uL (130-400); RDW Coefficient of Variation 18.2 % (11.5-14.5); RDW Standard Deviation 52.1 fL (36.4-46.3); Red Blood Count 3.65 M/uL (4.20-5.40); White Blood Count 7.63 K/ul (4.8-10.8)
--- NOTE | 2022-12-20 10:23 | Surgery Progress Note ---
Date of Service December 20, 2022 Assessment & Plan (1) Rectal bleeding: (2) Hemorrhoids: Plan: Iliana says she has not had a bowel movement here yet since her colonoscopy yesterday and has not thus seen any bleeding since admission. I had a long discussion with her regarding hemorrhoidal bleeding and constipation. She will start a daily bowel regimen. Recommend stool softener twice per day, Metamucil and 1 cap full of Miralax daily. If she is having more than one BM per day, she can hold Miralax. She will continue to drink plenty of water. Should she continue to have bleeding issues in spite of healthy non-constipated stools, she should follow up for consideration of hemorrhoid surgery. In the meantime, she will continue to follow up with her kelp gatherer if this regimen is not adequate or she can not tolerate it. She should be started on a regimen prior to discharge. Admission and Anticipated Discharge Date Admission Date: December 17, 2022 Subjective The patient was seen this am. She says she has not had a bowel movement or bleeding since being admitted and having her colonoscopy yesterday. The patient notes she has had a few bleeding episodes in the past that were all caused by constipation dating back to 30 years ago and does not otherwise typically have problems with bleeding hemorrhoids otherwise. She has used Metamucil off and on, stool softeners off and on and Milk of magnesia but has not remained on a daily bowel regimen to help her maintain healthy stool. She denies fevers, chills, abdominal pain and current bleeding. Physical Exam Constitutional: + morbidly obese; no acute distress, not ill appearing and not diaphoretic Respiratory: normal respiratory effort; no respiratory distress, no labored breathing and does not use accessory muscles Gastrointestinal (Abdomen): Inspection/Auscultation: + significant pannus Percussion/Palpation: abdomen soft; abdomen nontender and no guarding Neurologic: moves all extremities and awake; no focal motor deficits and not confused Results & Data Vital Signs (Past 12 Hours) Vital Signs Temp Pulse Pulse Resp BP Pulse Ox O2 Del Method 12/20/22 07:53 36.6 C 94 H 19 152/80 H 90 Room Air 12/20/22 03:14 61 18 127/82 93 Room Air 12/19/22 23:27 36.8 C 75 18 124/77 94 Room Air 12/19/22 23:19 69 PG Care Time/CCT Total # of Minutes Spent Total Time Spent with Patient: Total time spent is greater than 50% in coordination of care (as documented) at patient's floor/unit and/or counseling patient: Coding [place] [address] SUB INP/OBS CARE 25MIN Patient Type Established History Problem Focused Exam Problem Focused Medical Decision Making Straight Forward Diagnoses Rectal bleeding K62.5 Hemorrhoids K64.9
[2022-12-20 10:34] LABS: BUN Creatinine Ratio 10.9 (10-20); Calcium 8.3 mg/dl (8.6-10.3); Creatinine Clr Calc Pharmacy 58.7 ml/min; Est GFR (African American) 61.7 ml/min; Est GFR (Non-African American) 53.3 ml/min
--- NOTE | 2022-12-20 12:18 | Gastroenterology Progress Note ---
Date of Service December 20, 2022 Assessment & Plan (1) Rectal bleeding: (2) Colon polyp: Plan Colonoscopy 12/19/22: Impression: - Hemorrhoids found on perianal exam. - The examined portion of the ileum was normal. - One 10 mm polyp at 15 cm proximal to the anus, removed with a hot snare. Resected and retrieved. - External and internal hemorrhoids. - The examination was otherwise normal on direct and retroflexion views. Pt w/ rectal bleeding underwent colonoscopy as above. Polyp removed. hemorrhoids noted; likely source of GIB. Bleeding has stopped, labs are stable. On exam, abd nondistended. - Recommend pt f/u with gen surg to discuss tx for hemorrhoids - Await pathology results from polyp - Advance diet as tolerated - GI will sign off, please call with questions Thank you for allowing us to participate in the care of this patient. Please call with any acute changes, questions or concerns. Please see addendum below with additional recommendation from my supervising physician. Admission and Anticipated Discharge Date Admission Date: December 17, 2022 Supervising Physician Co-Signing Physician Notes I have personally seen and examined the patient with Eunice Pearce PA-C. Her note reflects my exam and findings. I agree with her impression and plan. The patient would really benefit from a definitive surgical approach for her hemor rhoids. Bradley Mcneal M.D. Subjective No acute events overnight. Pt w/o further GIB. No abd pain, n/v, CP, SOB. Labs are stable. Physical Exam Constitutional: well developed, well nourished and comfortable; no acute distress Eyes: Sclera anicteric, no conjunctival injection ENMT: moist mucous membranes, no pallor Neck: trachea midline supple Respiratory: Normal resp effort Gastrointestinal (Abdomen): Inspection/Auscultation: abdomen not distended Skin: no rashes, warm and dry Neurologic: alert and oriented x 3, no obvious focal neuro deficit Psychiatric: normal mood and affect Results & Data Vital Signs (Past 12 Hours) Vital Signs Temp Pulse Resp BP Pulse Ox O2 Del Method 12/20/22 11:30 36.4 C L 74 19 149/84 H 94 Room Air 12/20/22 07:53 36.6 C 94 H 19 152/80 H 90 Room Air 12/20/22 03:14 61 18 127/82 93 Room Air Laboratory Results 12/20/22 12/20/22 12/19/22 Range/Units 09:48 09:48 14:04 WBC 7.63 (4.8-10.8) K/ul RBC 3.65 L (4.20-5.40) M/uL Hgb 8.7 L 9.5 L (12.0-16.0) g/dl Hct 29.7 L 30.7 L (37.0-47.0) % MCV 81.4 (80.0-100.0) fL MCH 23.8 L (25.0-34.0) pg MCHC 29.3 L (32.0-36.0) g/dL RDW Std Deviation 52.1 H (36.4-46.3) fL RDW Coeff of Cat 18.2 H (11.5-14.5) % Plt Count 305 (130-400) K/uL MPV 9.1 L (9.4-12.4) fL Immature Gran % (Auto) 0.5 % Neut % (Auto) 62.7 % Lymph % (Auto) 21.2 % [place] % (Auto) 11.4 % Eos % (Auto) 3.7 % Baso % (Auto) 0.5 % Neut # (Auto) 4.78 (1.40-6.50) K/uL Lymph # (Auto) 1.62 (1.2-3.4) K/uL [place] # (Auto) 0.87 H (0.11-0.59) K/uL Eos # (Auto) 0.28 (0-0.50) K/uL Baso # (Auto) 0.04 (0-0.2) K/uL Immature Gran # (Auto) 0.04 (0.01-0.20) K/uL Sodium 142 (136-145) mmol/L Potassium 4.0 (3.5-5.1) mmol/L Chloride 110 H (98-107) mmol/L Carbon Dioxide 27 (21-32) mmol/L Anion Gap 5 (3-11) BUN 11 (6-23) mg/dl Creatinine 1.01 (0.6-1.2) mg/dl Est Cr Clr Drug Dosing 58.7 ml/min Est GFR ( Amer) 61.7 ml/min Est GFR (Non-Af Amer) 53.3 ml/min BUN/Creatinine Ratio 10.9 (10-20) Glucose 103 H (70-99(Fasting)) mg/dl Calcium 8.3 L (8.6-10.3) mg/dl Diagnostic Findings 12/20/22 12/20/22 12/19/22 Range/Units 09:48 09:48 14:04 WBC 7.63 (4.8-10.8) K/ul RBC 3.65 L (4.20-5.40) M/uL Hgb 8.7 L 9.5 L (12.0-16.0) g/dl Hct 29.7 L 30.7 L (37.0-47.0) % MCV 81.4 (80.0-100.0) fL MCH 23.8 L (25.0-34.0) pg MCHC 29.3 L (32.0-36.0) g/dL RDW Std Deviation 52.1 H (36.4-46.3) fL RDW Coeff of Cat 18.2 H (11.5-14.5) % Plt Count 305 (130-400) K/uL MPV 9.1 L (9.4-12.4) fL Immature Gran % (Auto) 0.5 % Neut % (Auto) 62.7 % Lymph % (Auto) 21.2 % [place] % (Auto) 11.4 % Eos % (Auto) 3.7 % Baso % (Auto) 0.5 % Neut # (Auto) 4.78 (1.40-6.50) K/uL Lymph # (Auto) 1.62 (1.2-3.4) K/uL [place] # (Auto) 0.87 H (0.11-0.59) K/uL Eos # (Auto) 0.28 (0-0.50) K/uL Baso # (Auto) 0.04 (0-0.2) K/uL Immature Gran # (Auto) 0.04 (0.01-0.20) K/uL Sodium 142 (136-145) mmol/L Potassium 4.0 (3.5-5.1) mmol/L Chloride 110 H (98-107) mmol/L Carbon Dioxide 27 (21-32) mmol/L Anion Gap 5 (3-11) BUN 11 (6-23) mg/dl Creatinine 1.01 (0.6-1.2) mg/dl Est Cr Clr Drug Dosing 58.7 ml/min Est GFR ( Amer) 61.7 ml/min Est GFR (Non-Af Amer) 53.3 ml/min BUN/Creatinine Ratio 10.9 (10-20) Glucose 103 H (70-99(Fasting)) mg/dl Calcium 8.3 L (8.6-10.3) mg/dl
[2022-12-20] MEDS ORDERED: ANUSOL SUPP 1 EA PR SCH (15:45)
[2022-12-20 16:48] LABS: Hematocrit (blood only) 30.5 % (37.0-47.0); Hemoglobin 9.2 g/dl (12.0-16.0)
--- NOTE | 2022-12-20 17:06 | Hospitalist Progress Note ---
Date of Service December 20, 2022 Assessment & Plan (1) Rectal bleeding: Plan: per previous hospitalist notes with addendum: (2) Hemorrhoids: (3) Anemia due to acute blood loss: Plan: probably related to her hemorrhoids precipitated by her constipation and fleet enema. Seen by GI- plan for colonoscopy tomorrow. Clears today, bowel prep today, npo after midnight S/p 2 U PRBC yesterday, trend Hb Will start on iron supplementation s/p Colonoscopy: Findings: Hemorrhoids were found on perianal exam. The terminal ileum appeared normal. A 10 mm polyp was found at 15 cm proximal to the anus. The polyp was pedunculated. The polyp was removed with a hot snare. Resection and retrieval were complete. Verification of patient identification for the specimen was done by the physician and nurse using the patient's name and medical record number. Estimated blood loss was minimal. External and internal hemorrhoids were found during retroflexion. The hemorrhoids were large. The exam was otherwise without abnormality on direct and retroflexion views. Impression: - Hemorrhoids found on perianal exam. - The examined portion of the ileum was normal. - One 10 mm polyp at 15 cm proximal to the anus, removed with a hot snare. Resected and retrieved. - External and internal hemorrhoids. - The examination was otherwise normal on direct and retroflexion views. Recommendation: - Await pathology results. - Discharge patient to home. General surgery consulted Recommend stool softeners, Anusol Follow-up as an outpatient Iron level 29- start ferrous sulfate daily Vitamin B12 166-start supplement daily Folate normal Hemoglobin remained stable around 9 Repeat CBC on follow-up with PCP 1 week postdischarge New medications Anusol suppository x1 week Senokot-S daily Lactulose as needed for constipation (4) Sick sinus syndrome: Plan: stable rate controlled with metoprolol (5) HTN, goal below 140/90: Plan: continue metoprolol (6) Prediabetes: (7) CKD (chronic kidney disease) stage 3, GFR 30-59 ml/min: (8) A-fib: Plan: rate controlled. Patient was advised eliquis in the past but declined because of her bleeding. She is on toprol qid. Follows with cardiology (9) Rheumatoid arthritis: Plan: continue prednisone. continue hydrocodone prn for pain (10) Constipation: Plan: Per above Plan Disposition Discharge to home Follow-up with PCP in 1 week Follow-up with general surgery plan of care discussed with patient in detail and at length all questions answered she is understanding, agreeable, comfortable with the plan of care Admission and Anticipated Discharge Date Admission Date: December 17, 2022 Subjective Follow-up for anemia secondary to hemorrhoidal bleed, etc. Sitting up in bed, comfortable, not in distress, in good spirits States she feels much better overall Denies dizziness, chest pain, shortness of breath, abdominal pain, nausea vomiting No melena or hematochezia since yesterday Tolerating diet well No any other symptoms States she is ready for discharge today Review of Systems Review of Systems: all noted and negative except for above Physical Exam Physical Exam: General- oriented x 3, not in distress, speaks in sentences with no effort or accessory muscle use Eyes- anicteric Neck- no JVD Lungs- clear breath sounds bilaterally, no rales/wheezes Heart- normal rate, regular rhythm; no murmurs Abdomen- normal bowel sounds, nondistended, soft, nontender Extremities- no pretibial edema, no calf tenderness Neuro- alert, oriented x 3; no gross focal neurologic deficits Skin- warm & dry Results & Data Results & Data Vital Signs (Past 12 Hours) Vital Signs Temp Pulse Resp BP Pulse Ox O2 Del Method 12/20/22 15:07 36.7 C 68 18 143/80 H 96 Room Air 12/20/22 11:30 36.4 C L 74 19 149/84 H 94 Room Air 12/20/22 07:53 36.6 C 94 H 19 152/80 H 90 Room Air all noted and reviewed including below
--- NOTE | 2022-12-20 17:13 | Discharge Summary ---
Discharge Summary Date of Service December 20, 2022 Notes For Next Care Provider Repeat CBC 1 week post discharge. Repeat Fe and Vit B12 level in 1-[address] finding: There is a linear masslike focus in the medial superior quadrant of the left breast measuring 3.8 cm on image 49 series 5 located approximately 13 cm from the nipple. Please refer to full report in the Ordered Studies section above Further work up, management, and ff up as outpatient Medication Changes From Visit Anusol suppository-for hemorrhoids Senokot S-laxative Lactulose-as needed for constipation Vitamin B12 supplement Iron supplement Admission HPI Per Admitting Provider rectal bleeding x 3 days Primary Care Provider: Landon Martinez DO This is a 76 y/o female with a PMH of SSS (has refused PPM placement), afib (refused AC), prior breast cancer (s/p lumpectomy, XRT), rheumatoid arthritis, CKD3a, and chronic prednisone use who presented with rectal bleeding. Today, she had a near syncopal episode so pushed her life alert button. Has become progressively weak, notes some RUIZ. When asked why she's here today, she r eports "my hemorrhoids are bleeding" and states that she has had issues with constipation and hemorrhoids x 30 years. Refused anticoagulation due to this - initially agreed at last cardio appt but then declined to get script filled. Worsening symptoms of constipation recently - has adjusted diet over the years which has seemed to help initially but less effective now. For the last three days, she has rectal bleeding any time she has to have a BM - "gushes out." She denies heartburn, indigestion, dysphagia, unexplained wt loss, hematuria, or epistaxis. She does not take NSAIDs. Uses hydrocodone 1-2x/day for her joint pains. Admission Exam Per Admitting Provider Neuro: AAOx3 , PERRLA, no aphasia, HEENT: head normocephalic, CV: S1/S2, Resp: Lungs CTA in all martin. on room air GI: Abdomen non tender. Musculoskeletal: no joint pain. Skin: (-) rashes , (-) erythema. Psych: normal affect Principal Dx & Hospital Course #1 = Principal Diagnosis (1) Rectal bleeding: per previous hospitalist notes with addendum: (2) Hemorrhoids: (3) Anemia due to acute blood loss: probably related to her hemorrhoids precipitated by her constipation and fleet enema. S/p 2 U PRBC Hg improved from 7.6 to 9.2 s/p Colonoscopy: Findings: Hemorrhoids were found on perianal exam. The terminal ileum appeared normal. A 10 mm polyp was found at 15 cm proximal to the anus. The polyp was pedunculated. The polyp was removed with a hot snare. Resection and retrieval were complete. Verification of patient identification for the specimen was done by the physician and nurse using the patient's name and medical record number. Estimated blood loss was minimal. External and internal hemorrhoids were found during retroflexion. The hemorrhoids were large. The exam was otherwise without abnormality on direct and retroflexion views. Impression: - Hemorrhoids found on perianal exam. - The examined portion of the ileum was normal. - One 10 mm polyp at 15 cm proximal to the anus, removed with a hot snare. Resected and retrieved. - External and internal hemorrhoids. - The examination was otherwise normal on direct and retroflexion views. Recommendation: - Await pathology results. - Discharge patient to home. General surgery consulted- Dr. Chávez of [facility] [place] Recommend stool softeners, Anusol Follow-up as an outpatient Iron level 29- start ferrous sulfate daily Vitamin B12 166-start supplement daily Folate normal Hemoglobin remained stable around 9 Repeat CBC on follow-up with PCP 1 week postdischarge New medications Anusol suppository x1 week Senokot-S daily Lactulose as needed for constipation Iron and Folate supplement (4) Abnormal finding on CT scan: There is a linear masslike focus in the medial superior quadrant of the left breast measuring 3.8 cm on image 49 series 5 located approximately 13 cm from the nipple. Please refer to full report in the Ordered Studies section above Further work up, management, and ff up as outpatient (5) Sick sinus syndrome: stable rate controlled with metoprolol (6) HTN, goal below 140/90: continue metoprolol (7) Prediabetes: (8) CKD (chronic kidney disease) stage 3, GFR 30-59 ml/min: (9) A-fib: rate controlled. Patient was advised eliquis in the past but declined because of her bleeding. She is on toprol qid. Follows with cardiology (10) Rheumatoid arthritis: continue prednisone. continue hydrocodone prn for pain (11) Constipation: Per above Plan Disposition Discharge to home Follow-up with PCP in 1 week Follow-up with general surgery plan of care discussed with patient in detail and at length all questions answered she is understanding, agreeable, comfortable with the plan of care Discharge Exam General- oriented x 3, not in distress, speaks in sentences with no effort or accessory muscle use Eyes- anicteric Neck- no JVD Lungs- clear breath sounds bilaterally, no rales/wheezes Heart- normal rate, regular rhythm; no murmurs Abdomen- normal bowel sounds, nondistended, soft, nontender Extremities- no pretibial edema, no calf tenderness Neuro- alert, oriented x 3; no gross focal neurologic deficits Skin- warm & dry Updated Medication List Medication Instructions Recorded Confirmed Type alprazolam 0.25 mg tablet 0.25 mg PO BID PRN Anxiety 12/17/22 12/17/22 History hydrocodone 5 mg-acetaminophen 325 1 tab PO Q8 PRN Pain 12/17/22 12/17/22 History mg tablet metoprolol succinate 25 mg 25 mg PO QID 12/17/22 12/17/22 History tablet,extended release 24 hr prednisone 5 mg tablet 5 mg PO DAILY 12/17/22 12/17/22 History cyanocobalamin (vitamin B-12) 1,000 mcg PO DAILY #30 caps 12/20/22 Rx 1,000 mcg capsule ferrous sulfate 325 mg (65 mg 325 mg PO DAILY #30 tabs 12/20/22 Rx iron) tablet hydrocortisone acetate 25 mg 25 mg DE DAILY 7 days #12 ea 12/20/22 Rx rectal suppository (Anusol-HC) lactulose 10 gram/15 mL oral 15 g (22.5 mL) PO DAILY PRN 12/20/22 Rx solution constipation #237 mL sennosides 8.6 mg-docusate sodium 1 tab-cap PO DAILY 30 days #30 tabs 12/20/22 Rx 50 mg tablet (Senokot-S) Hospital Stay Data Consultations 12/17/22 16:00 ED Decision to Admit Stat 12/17/22 19:25 Consult Gastroenterology Routine 12/19/22 12:38 Consult General Surgery Routine Procedures Performed Operation Date: 12/19/22 16:30 Actual Procedures p Colonoscopy Polypectomy - Bradley Mcneal MD Diagnostic Imagining Performed 12/17/22 13:41 CT Abd and Pelvis [CT abd pelvis IV con only] Stat COMPARISON STUDY: Mammography 03/25/2012. FINDINGS: There is a linear masslike focus in the medial superior quadrant of the left breast measuring 3.8 cm on image 49 series 5 located approximately 13 cm from the nipple. Mild cardiomegaly. Mild right hemidiaphragmatic elevation. Clear lung bases. No pneumatosis or pneumoperitoneum. The study is limited secondary to patient body habitus. Scattered calcifications are noted within the spleen. Calcifications are also within the splenic artery. Unremarkable pancreas, mildly contracted gallbladder and adrenal glands. Moderate right hemidiaphragmatic elevation. Unremarkable appearance of the liver. Mild cortical thinning of the kidneys without hydronephrosis or suspicious mass lesion. No filling defects identified within the opacified renal collecting systems. Unremarkable urinary bladder and uterus. Aorta and IVC are unremarkable. No lymphadenopathy identified. No bowel obstruction. The anus is only partially imaged however demonstrate soft tissue fullness. No bowel obstruction or bowel wall thickening identified. There is no ascites or mesenteric inflammation. Noninflamed appendix. Tiny fat filled umbilical hernia. Unremarkable soft tissues. No acute fracture. Degenerative changes of the shoulders and spine. IMPRESSION: 1. Equivocal mild soft tissue fullness in the partially imaged anus. Correlate with physical exam findings. 2. No bowel obstruction or pneumoperitoneum. 3. Incidental findings as above. ACT 112: Negative or not required by law. The above report was generated using voice recognition software. It may contain grammatical, syntax or spelling errors. Pending Results Patient Have Any Pending Studies at Discharge: No Discharge Instructions Given to Patient (Per Discharging Provider) PLEASE REFER TO YOUR NEW MEDICATION LIST AND FOLLOW INSTRUCTIONS CAREFULLY. YOUR NEW MEDICATIONS INCLUDE: Anusol suppository-for hemorrhoids Senokot S-laxative Lactulose-as needed for constipation Vitamin B12 supplement Iron supplement PLEASE CALL YOUR PRIMARY CARE PHYSICIAN OR RETURN TO THE ER IF WITH WORSENING OF SYMPTOMS, INCLUDING Blood in the stools, pain with bowel movements, abdominal pain, nausea or vomiting, fevers or chills, etc. FOLLOW UP WITH PRIMARY CARE PHYSICIAN OUTLINED ABOVE. FOLLOW-UP WITH GENERAL SURGERY DR. CHÁVEZ OUTLINED ABOVE. Try to avoid constipation If you are having more than one BM per day, you can hold Senokot S. Drink plenty of water and keep well hydrated Eat a diet with fiber Avoid straining Total Time Total Time Spent Total Time Spent (In Minutes): >30 minutes
== END 2022-12-20 17:44 | disposition home or self-care (01) | DRG 394 ==
LOC: EDBD → ED 13:12 → 2S 16:50 → SUATTDRO 16:50 → 2S 18:07

== ENCOUNTER 2025-04-06 08:37 | Inpatient (IN) ==
--- NOTE | 2025-04-06 09:07 | Emergency Department Note ---
Impression & Plan Acute lower GI bleeding Admission ED Provider Note HPI: History obtained from patient. The patient is a 79-year-old female with history of atrial fibrillation (not on anticoagulation), history of hemorrhoids, who presents to the emergency department with a chief complaint of blood per rectum. Patient states over the past week she has had blood per rectum with each bowel movement. Patient states she has had similar episodes in the past associated with bleeding from hemorrhoids. Patient states the blood is bright red in the toilet when she goes. Patient states that she does have a history of requiring a blood transfusion secondary to blood loss and therefore came to the ER to be assessed. Patient denies any new symptoms of chest pain or shortness of breath, she denies any abdominal pain, she denies any vomiting. Patient states she does have a sensation of generalized weakness. Patient states that she is not on any anticoagulation for her A-fib by personal preference because of her history of GI bleeding. On arrival here to the ED the patient is mildly hypertensive at 167/78, she is otherwise hemodynamically stable and saturating well on room air. ROS: - Per HPI Differential Diagnosis: Rectal bleeding secondary to external hemorrhoids/internal hemorrhoids, acute colitis, ischemic colitis, diverticulitis flare, inflammatory bowel disease, symptomatic anemia, amongst other potential pathologies. *Outpatient medications and allergy history reviewed. PE: General: Alert HEENT: Normocephalic, trachea midline Eyes: Extraocular eye movement is intact, no scleral erythema Pulmonary: Clear to auscultation bilaterally, no wheezing Cardio: Regular rate and rhythm GI: Abdomen is soft to palpation, rectal examination was performed with female RN at the bedside and shows evidence of multiple large external hemorrhoids with some excoriation but no visualized active bleeding : No suprapubic tenderness MSK: No evidence of trauma or malformation of the extremities, no edema Skin: No evidence of rash Neuro: Alert, no focal deficits Psychiatric: Cooperative INDEPENDENT INTERPRETATIONS: traffic monitor specialist: (As interpreted by myself): - An order was placed for continuous cardiac monitoring - Patient was noted to be in atrial fibrillation with rate of 70 EKG: (As interpreted by myself): Rate: 64 Rhythm: Atrial fibrillation Intervals: Within normal limits ST changes: No ST elevation Time: 0852 Interventions provided in ED: - IV fluid bolus, packed red blood cell transfusion Medical Decision Making: IV was established and lab work obtained, patient was placed on quality assurance monitor. Lab work shows no leukocytosis, hemoglobin is noted to be low at 7.2 (patient's baseline appears to be around 9.5). Platelet count is normal, CMP does not show any evidence of any critical findings. There is no transaminitis, bilirubin is normal, troponin is negative. Lipase is normal. EKG shows rate controlled atrial fibrillation. CT imaging of the abdomen pelvis was obtained, this shows no acute infectious or inflammatory changes within the abdomen/pelvis, hyperdense material is noted within the rectum, possibly consistent with hemorrhoidal bleeding. On my reevaluation the patient appears well, PRBCs were ordered and the patient consented for transfusion. They were hung while the patient was in the ED. I did discuss the patient's presentation with the on-call hospitalist service for [facility] and the patient was placed for admission to the service of Dr. Roca. Consultants/Discussions held with other healthcare providers: - HospitalistDr. Roca Disposition discussion held by myself with: - Patient Diagnosis: 1. Lower GI bleeding, acute 2. Symptomatic anemia, acute 3. External hemorrhoids, acute Disposition: Admission Jeffrey Hernandez DO Emergency Medicine Past Med/Surg History Problem List (Updated 04/06/25 @ 13:26 by Jeffrey Hernandez DO) Acute lower GI bleeding (Acute) Abnormal finding on CT scan Colon polyp Ischemic colitis Rectal bleeding Encounter for pre-operative examination Constipation Anemia due to acute blood loss Hemorrhoids SOB (shortness of breath) (Acute) Anemia (Acute) Weakness (Acute) Rectal bleeding (Acute) Acute anemia Lower gastrointestinal bleed Chronic steroid use Sick sinus syndrome HTN, goal below 140/90 Prediabetes CKD (chronic kidney disease) stage 3, GFR 30-59 ml/min A-fib (Chronic) Rheumatoid arthritis Left knee DJD (Acute) Strain of left knee (Acute) Medical History Anxiety Lymphedema Breast cancer Surgical History History of tubal ligation History of D&C History of ankle surgery History of lumpectomy of left breast Family History Mother Cancer Diabetes Brother Cancer Daughter Breast cancer Father Diabetes Social History Smoking Status: Never smoker Hx Alcohol Use: No Hx Substance Use: No Preferred Language: Mauritanian Communication Ability: Effective Motion Picture Commentator Required: No Beliefs That Will Affect Care: None Current Living Situation: Alone Feels Safe at Home: Yes Assistive Devices: Walker and Wheelchair Allergies Allergies Allergy/AdvReac Type Severity Reaction Status Date / Time nickel Allergy Mild SKIN Verified 12/19/22 10:48 IRRITATION ciprofloxacin [From Cipro] AdvReac Severe DESTROYED Verified 12/19/22 10:48 LIGAMENTS IN KNEE naproxen AdvReac Intermediate gi upset Verified 12/19/22 10:48 rofecoxib AdvReac Intermediate irregular Verified 12/19/22 10:48 heartbeat lisinopril AdvReac Cough Verified 12/19/22 10:48 Home Meds Home Medications Medication Instructions Recorded Confirmed alprazolam 0.25 mg tablet 0.25 mg PO BID PRN Anxiety 12/17/22 04/06/25 hydrocodone 5 mg-acetaminophen 325 1 tab PO Q8 PRN Pain 12/17/22 04/06/25 mg tablet metoprolol succinate 25 mg 25 mg PO .Q6H 12/17/22 04/06/25 tablet,extended release 24 hr prednisone 5 mg tablet 5 mg PO QAM 12/17/22 04/06/25 Milk of Magnesia 0 mg PO DIRECTED PRN 04/06/25 04/06/25 Constipation Previous Rx's Medication Instructions Recorded cyanocobalamin (vitamin B-12) 1,000 mcg PO DAILY #30 caps 12/20/22 1,000 mcg capsule ferrous sulfate 325 mg (65 mg 325 mg PO DAILY #30 tabs 12/20/22 iron) tablet Results & Data (ED) Vital Signs Vital Signs - 24 hr 04/06/25 08:43 04/06/25 08:44 04/06/25 08:57 Temperature 36.6 C Temperature Source Temporal Artery Scan Pulse Rate 70 69 Pulse Rate [Apical] 70 Pulse Rhythm Regular Pulse Rhythm [Apical] Regular Pulse Strength Pulse Strength [Apical] Normal Respiratory Rate 20 18 14 Respiratory Effort / Characteristics Spontaneous Non-Labored Respiratory Depth Normal Normal Respiratory Pattern Regular Regular Blood Pressure 152/83 H Blood Pressure [Right Arm] 167/78 H Blood Pressure Mean 106 Blood Pressure Mean [Right Arm] 107 Blood Pressure Position Blood Pressure Position [Right Arm] Lying Pulse Oximetry 93 99 99 Oxygen Delivery Method Room Air Room Air Room Air Sepsis Recent Fever Within 48 Hours No Sepsis New/Unexplained Change in Mental Status No Sepsis Action Taken by Nursing No Action Required 04/06/25 09:14 04/06/25 12:00 04/06/25 12:25 Temperature 37 C Temperature Source Oral Pulse Rate 76 82 Pulse Rate [Apical] 76 Pulse Rhythm Regular Pulse Rhythm [Apical] Pulse Strength Normal Pulse Strength [Apical] Respiratory Rate 17 17 Respiratory Effort / Characteristics Non-Labored Spontaneous Respiratory Depth Normal Respiratory Pattern Blood Pressure 173/87 H Blood Pressure [Right Arm] 145/72 H Blood Pressure Mean 115 Blood Pressure Mean [Right Arm] 96 Blood Pressure Position Lying Blood Pressure Position [Right Arm] Lying Pulse Oximetry 93 92 Oxygen Delivery Method Room Air Sepsis Recent Fever Within 48 Hours Sepsis New/Unexplained Change in Mental Status Sepsis Action Taken by Nursing 04/06/25 12:49 04/06/25 13:04 Temperature 36.7 C 36.6 C Temperature Source Oral Oral Pulse Rate 74 84 Pulse Rate [Apical] Pulse Rhythm Pulse Rhythm [Apical] Pulse Strength Pulse Strength [Apical] Respiratory Rate 16 18 Respiratory Effort / Characteristics Respiratory Depth Respiratory Pattern Blood Pressure 155/83 H 148/63 H Blood Pressure [Right Arm] Blood Pressure Mean 107 91 Blood Pressure Mean [Right Arm] Blood Pressure Position Lying Sitting Blood Pressure Position [Right Arm] Pulse Oximetry 98 95 Oxygen Delivery Method Sepsis Recent Fever Within 48 Hours Sepsis New/Unexplained Change in Mental Status Sepsis Action Taken by Nursing Laboratory Data 04/06/25 09:10 04/06/25 09:10 Lab Results 04/06/25 04/06/25 04/06/25 Range/Units 09:09 09:10 11:15 WBC 8.60 (4.8-10.8) K/ul RBC 2.91 L (4.20-5.40) M/uL Hgb 7.2 L (12.0-16.0) g/dl Hct 24.6 L (37.0-47.0) % MCV 84.5 (80.0-100.0) fL MCH 24.7 L (25.0-34.0) pg MCHC 29.3 L (32.0-36.0) g/dL RDW Std Deviation 43.8 (36.4-46.3) fL RDW Coeff of Cat 14.2 (11.5-14.5) % Plt Count 397 (130-400) K/uL MPV 9.2 L (9.4-12.4) fL Immature Gran % (Auto) 0.5 % Neut % (Auto) 57.3 % Lymph % (Auto) 28.0 % [place] % (Auto) 10.2 % Eos % (Auto) 3.5 % Baso % (Auto) 0.5 % Neut # (Auto) 4.93 (1.40-6.50) K/uL Lymph # (Auto) 2.41 (1.20-3.40) K/uL [place] # (Auto) 0.88 H (0.11-0.59) K/uL Eos # (Auto) 0.30 (0.00-0.50) K/uL Baso # (Auto) 0.04 (0.00-0.20) K/uL Immature Gran # (Auto) 0.04 (0.01-0.20) K/uL Absolute Nucleated RBC 0.03 (0.00-0.12) K/uL Nucleated RBC % (auto) 0.3 % Polychromasia 1+ PT 10.7 (9.0-12.0) Seconds INR 1.0 (0.9-1.1) Sodium 141 (136-145) mmol/L Potassium 3.8 (3.5-5.1) mmol/L Chloride 107 (98-107) mmol/L Carbon Dioxide 28 (21-32) mmol/L Anion Gap 6 (3-11) BUN 17 (6-23) mg/dl Creatinine 1.06 (0.6-1.2) mg/dl Est Cr Clr Drug Dosing 55.6 ml/min eGFR 52.78 BUN/Creatinine Ratio 16.0 (10-20) Glucose 108 H (70-99(Fasting)) mg/dl Calcium 8.6 (8.6-10.3) mg/dl Total Bilirubin 0.4 (0.2-1.0) mg/dl AST 11 L (13-39) U/L ALT 6 L (7-52) U/L Alkaline Phosphatase 42 (34-104) U/L Troponin I High Sens 6.2 (0-14) pg/ml Total Protein 6.3 (6.0-8.3) gm/dl Albumin 3.6 (3.4-5.0) gm/dl Globulin 2.7 (2.5-4.0) gm/dl Albumin/Globulin Ratio 1.3 (0.9-2) Lipase 16 (11-82) U/L Urine Color Yellow Urine Appearance Clear (Clear) Urine pH 6.5 (4.5-7.5) Ur Specific [place] 1.010 (1.000-1.030) Urine Protein Negative (Negative) Urine Glucose (UA) Negative (Negative) Urine Ketones Negative (Negative) Urine Blood Negative (Negative) Urine Nitrite Negative (Negative) Urine Bilirubin Negative (Negative) Urine Urobilinogen Negative (Negative) Ur Leukocyte Esterase Trace H (Negative) Urine WBC (Auto) 0-5 (0-5) /hpf Urine RBC (Auto) 0-2 (0-2) /hpf U Hyaline Cast (Auto) 0-2 (0-2) /lpf U Epithel Cells (Auto) 3-5 H (0-2) /hpf Urine Bacteria (Auto) None Seen (None Seen) Urine RBC Not Reportable Urine WBC Not Reportable Ur Epithelial Cells Not Reportable Urine Bacteria Not Reportable Urine Comment Blood Type A Positive Antibody Screen NEGATIVE Crossmatch See Detail Administered Medications Discontinued Medications Sodium Chloride (Nss) 1,000 mls @ 999 mls/hr IV .Q1H1M STA Stop: 04/06/25 09:57 Last Infusion: 04/06/25 10:23 Dose: Infused Documented By: Admin: 04/06/25 09:18 Dose: 999 mls/hr Documented By: TERRY Ioversol (Optiray 320 100ml) 94 ml IV ONCE ONE Stop: 04/06/25 11:00 Last Admin: 04/06/25 10:59 Dose: 94 ml Documented By: ROSE Imaging Data Radiologist's Impression: Abdomen/Pelvis CT 04/06/25 10:32 CT SCAN OF THE ABDOMEN AND PELVIS WITH IV CONTRAST CLINICAL HISTORY: Lower GI bleeding. COMPARISON STUDY: Abdominal CT dated 12/17/2022 TECHNIQUE: Following the IV administration of 94 cc of Optiray 320, CT scan of the abdomen and pelvis is performed from the lung bases to the proximal femora. Images are reviewed in the axial, sagittal, and coronal planes. IV contrast was administered without complication. A dose lowering technique was utilized adhering to the principles of ALARA. CT DOSE: 1521.25 mGy.cm FINDINGS: Lung bases: The heart is enlarged and without pericardial effusion. The lung bases are clear noting bibasilar scarring/atelectasis. An approximately 3 x 1 cm collection is again seen in the left breast on image #50 and favors a seroma. Liver: The contrast-enhanced liver is normal in size, contour, and attenuation. There is no intrahepatic biliary ductal dilatation. The hepatic veins and portal veins are patent. Gallbladder: Unremarkable. Spleen: Normal in size and attenuation. There are calcified splenic granulomas. Pancreas: Unremarkable. Adrenal glands: Unremarkable. Kidneys: The contrast enhanced kidneys demonstrate cortical atrophy and are without hydronephrosis. The kidneys enhance symmetrically. Scattered subcentimeter cortical hypodensities likely represent cysts but are too small for definitive characterization. Abdominal vasculature: The abdominal aorta is normal in course and caliber noting mild atherosclerotic calcification. Bowel: There is no bowel obstruction. Hyperdense material within the lower rectum just above the anal junction is seen on axial image #377 and may represent intraluminal contrast. No additional foci of intraluminal contrast are suspected. The appendix is well-visualized and normal. Peritoneum: There is no intraperitoneal free air or abdominal ascites. There is a fat-containing umbilical hernia. Lymphadenopathy: None. Pelvic viscera: The bladder, uterus, and adnexa are normal as visualized. Skeletal structures: The skeletal structures are osteopenic. There is mild lumbosacral spondylosis and scoliosis. No lytic or blastic lesions are seen. IMPRESSION: 1. No acute infectious or inflammatory findings are identified in the abdomen or pelvis. 2. Hyperdense material within the lower rectum just above the anal junction may represent intraluminal contrast/a focus of GI bleeding. If warranted this could be further assessed with direct visualization. 3. Cardiomegaly. 4. Additional findings as above. ACT 112: Negative or not required by law. Electronically signed by: Quinn Conner M.D. 04/06/2025 11:27 AM Discharge Plan Visit Data Chief Complaint: Rectal Bleed Stated Complaint: BLOOD IN STOOL ED Provider: Jeffrey Hernandez Discharge Problem: Acute lower GI bleeding Patient Disposition: Admitted As Inpatient Condition: Fair Forms Stand Alone Forms: [facility] [employer] Prescriptions Prescriptions: No Action hydrocodone-acetaminophen 5-325 mg tablet 1 tab PO Q8 PRN (Reason: Pain) Rx Instructions: next dose around 3pm Takes 1-2 times per day prednisone 5 mg tablet 5 mg PO QAM Patient Comments: 04/06-needs morning dose Rx Instructions: IF NEEDED, MAY TAKE 10 MG DAILY FOR FLARE UPS. alprazolam 0.25 mg tablet 0.25 mg PO BID PRN (Reason: Anxiety) Patient Comments: 04/06-needs morning dose Rx Instructions: Takes 1-2 times per day metoprolol succinate 25 mg tablet extended release 24 hr 25 mg PO .Q6H Patient Comments: 04/06-per pt next dose due around 11 cyanocobalamin (vitamin B-12) 1,000 mcg capsule 1,000 mcg PO DAILY Qty: 30 1RF ferrous sulfate 325 mg (65 mg iron) tablet 325 mg PO DAILY Qty: 30 0RF Patient Comments: takes gummy version, works better for her Milk of Magnesia 0 mg PO DIRECTED PRN (Reason: Constipation) Patient Comments: OTC unknown dose Referrals Referrals: Landon Martinez DO [Primary Care Provider] -
[2025-04-06] MEDS: SODIUM CHLORIDE 0.9% 1,000 ML IV STA (09:18)
[2025-04-06 10:04] LABS: Hematocrit (blood only) 24.6 % (37.0-47.0); Hemoglobin 7.2 g/dl (12.0-16.0); Immature Granulocytes # (auto) 0.04 K/uL (0.01-0.20); Immature Granulocytes % (auto) 0.5 %; Mean Corpuscular Hemoglobin 24.7 pg (25.0-34.0); Mean Corpuscular Volume 84.5 fL (80.0-100.0); Platelet Count 397 K/uL (130-400); RDW Standard Deviation 43.8 fL (36.4-46.3); Red Blood Count 2.91 M/uL (4.20-5.40); White Blood Count 8.60 K/ul (4.8-10.8)
[2025-04-06] MEDS ORDERED: SODIUM CHLORIDE 0.9% 100 ML IV PRN (10:07)
[2025-04-06 10:31] LABS: Alanine Aminotransferase 6.0 U/L (7-52); Albumin Globulin Ratio 1.3 (0.9-2); Alkaline Phosphatase 42.0 U/L (34-104); Anion Gap 6.0 (3-11); Bilirubin,Total 0.4 mg/dl (0.2-1.0); Blood Urea Nitrogen 17.0 mg/dl (6-23); Calcium 8.6 mg/dl (8.6-10.3); Carbon Dioxide 28.0 mmol/L (21-32); Chloride 107.0 mmol/L (98-107); Creatinine Clr Calc Pharmacy 55.6 ml/min; Globulin 2.7 gm/dl (2.5-4.0); Glucose 108.0 mg/dl (70-99(Fasting)); Lipase 16.0 U/L (11-82); Potassium 3.8 mmol/L (3.5-5.1); Sodium 141.0 mmol/L (136-145); Total Protein 6.3 gm/dl (6.0-8.3)
[2025-04-06 10:32] LABS: Polychromasia 1+
[2025-04-06 10:35] LABS: INR 1.0 (0.9-1.1); Prothrombin Time 10.7 Seconds (9.0-12.0)
[2025-04-06] MEDS: OPTIRAY 320 100ml IV ONE (10:59)
--- NOTE | 2025-04-06 11:28 | CT Scan Report ---
CT SCAN OF THE ABDOMEN AND PELVIS WITH IV CONTRAST CLINICAL HISTORY: Lower GI bleeding. COMPARISON STUDY: Abdominal CT dated 12/17/2022 TECHNIQUE: Following the IV administration of 94 cc of Optiray 320, CT scan of the abdomen and pelvi s is performed from the lung bases to the proximal femora. Images are reviewed in the axial, sagittal , and coronal planes. IV contrast was administered without complication. A dose lowering technique wa s utilized adhering to the principles of ALARA. CT DOSE: 1521.25 mGy.cm FINDINGS: Lung bases: The heart is enlarged and without pericardial effusion. The lung bases are clear noting b ibasilar scarring/atelectasis. An approximately 3 x 1 cm collection is again seen in the left breast on image #50 and favors a seroma. Liver: The contrast-enhanced liver is normal in size, contour, and attenuation. There is no intrahepa tic biliary ductal dilatation. The hepatic veins and portal veins are patent. Gallbladder: Unremarkable. Spleen: Normal in size and attenuation. There are calcified splenic granulomas. Pancreas: Unremarkable. Adrenal glands: Unremarkable. Kidneys: The contrast enhanced kidneys demonstrate cortical atrophy and are without hydronephrosis. T he kidneys enhance symmetrically. Scattered subcentimeter cortical hypodensities likely represent cys ts but are too small for definitive characterization. Abdominal vasculature: The abdominal aorta is normal in course and caliber noting mild atheroscleroti c calcification. Bowel: There is no bowel obstruction. Hyperdense material within the lower rectum just above the anal junction is seen on axial image #377 and may represent intraluminal contrast. No additional foci of intraluminal contrast are suspected. The appendix is well-visualized and normal. Peritoneum: There is no intraperitoneal free air or abdominal ascites. There is a fat-containing umbi lical hernia. Lymphadenopathy: None. Pelvic viscera: The bladder, uterus, and adnexa are normal as visualized. Skeletal structures: The skeletal structures are osteopenic. There is mild lumbosacral spondylosis an d scoliosis. No lytic or blastic lesions are seen. IMPRESSION: 1. No acute infectious or inflammatory findings are identified in the abdomen or pelvis. 2. Hyperdense material within the lower rectum just above the anal junction may represent intralumina l contrast/a focus of GI bleeding. If warranted this could be further assessed with direct visualizat ion. 3. Cardiomegaly. 4. Additional findings as above. ACT 112: Negative or not required by law. Electronically signed by: Quinn Conner M.D. 04/06/2025 11:27 AM
[2025-04-06 11:58] LABS: Appearance Urine Clear (Clear); Glucose Urine UA Negative (Negative)
--- NOTE | 2025-04-06 12:04 | History & Physical Report ---
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 #Acute lower GI bleed #History of internal and external hemorrhoids #Chronic constipation #Acute blood loss anemia Hgb 11.2 on 02/18/25 -> dropped to 7.2 on admission No s/sx of active bleeding on exam 2U PRBCs ordered -> transfusing in ED CTAP: hyperdense material within the lower rectum just above the anal junction may represent intraluminal contrast/a focus of GI bleeding GI consulted -NPO at [place] for colonscopy tomorrow, 04/07/25 Monitor H/H Q8H Generalized weakness likely 2/2 symptomatic anemia -Appreciate PT/OT evals King bowel regimen, re: reduce straining, risk of rebleed #Rheumatoid arthritis Continue prednisone Continue PRN Percocet for RA-related pain #Tachy-vladimir syndrome #Permanent afib Rate-controlled, continue BB F/w [employer] cards Pt previously declined pacemaker, chemical AC per OP cards notes DVT Prophylaxis: SCDs/TEDs only ISO above Disposition: Admit to PCU Patient seen in collaboration with Dr. Roca. Please see addendum. I spent a total of 64 minutes coordinating, documenting, and providing care for this patient excluding time spent in the performance of separately billed services or time spent by another provider/QHP. This included personally reviewing all current laboratories and imaging studies, medical reconciliation, outpatient chart review and discussion with specialists. This chart was completed in part utilizing Speech Voice Recognition Software. Grammatical errors, random word insertions, pronoun errors, and incomplete sentences are an occasional consequence of this system due to software limitations, ambient noise, and hardware issues. Any formal questions or concerns about the content, text, or information contained within the body of this dictation should be directly addressed to the provider for clarification. History of Present Illness Chief Complaint: Blood in stool Primary Care Provider: Landon Martinez DO Patient is an 79y/o F with PMHx significant for rheumatoid arthritis on chronic prednisone therapy, prediabetes [Hgb A1c 5.7% 1yr ago], permanent afib [patient refused AC in the past and continues to refuse per OP cardiology visit notes], tachy-vladimir syndrome [patient refused pacemaker placement per OP cardiology visit notes], history of PACs, morbid obesity, urinary incontinence, primary osteoarthritis of both knees, ANTONIO, prior breast CA s/p lumpectomy and radiotherapy, CKD stage IIIa [baseline Cr 0.9-1.1], ABLA previously requiring PRBC transfusions due to rectal bleeding ISO both internal/external hemorrhoids and constipation who presented to the ED for evaluation of rectal bleeding x 1 week. History obtained from the patient, discussion with ED provider and associated chart review. Rectal bleeding x 1 week. Noted bright red blood. Some bouts of maroon-colored stools as well with visible clots. History of constipation. Has been feeling more constipated over the past 2 weeks with increased straining during BMs. Notes she takes MOM every 10 days and uses PRN enemas/suppositories to help with this. Has history of internal and external hemorrhoids. Admits to feeling significantly weaker since the rectal bleeding began. No falls or trauma. Denies any abdominal pain. Reports she had some rectal bleeding last month which lasted about 3-4 days before spontaneously stopping. Had CBC done by PCP at this time which revealed a stable Hgb of 11.3 on 02/18/25 per OP chart review. Allergies Allergy/AdvReac Type Severity Reaction Status Date / Time nickel Allergy Mild SKIN Verified 12/19/22 10:48 IRRITATION ciprofloxacin [From Cipro] AdvReac Severe DESTROYED Verified 12/19/22 10:48 LIGAMENTS IN KNEE naproxen AdvReac Intermediate gi upset Verified 12/19/22 10:48 rofecoxib AdvReac Intermediate irregular Verified 12/19/22 10:48 heartbeat lisinopril AdvReac Cough Verified 12/19/22 10:48 Home Medications Medication Instructions Recorded Confirmed Type alprazolam 0.25 mg tablet 0.25 mg PO BID PRN Anxiety 12/17/22 04/06/25 History hydrocodone 5 mg-acetaminophen 325 1 tab PO Q8H PRN Severe Pain 12/17/22 04/06/25 History mg tablet (Scale Score 7-10) metoprolol succinate 25 mg 50 mg PO BID 12/17/22 04/06/25 History tablet,extended release 24 hr prednisone 5 mg tablet 5 mg PO QAM 12/17/22 04/06/25 History cyanocobalamin (vitamin B-12) 1,000 mcg PO DAILY #30 caps 12/20/22 04/06/25 Rx 1,000 mcg capsule ferrous sulfate 325 mg (65 mg 325 mg PO DAILY #30 tabs 12/20/22 04/06/25 Rx iron) tablet Past Med/Surg History Problem List Symptomatic anemia Acute blood loss anemia History of hemorrhoids GI bleed Acute lower GI bleeding (Acute) Abnormal finding on CT scan Colon polyp Ischemic colitis Rectal bleeding Encounter for pre-operative examination Constipation Anemia due to acute blood loss Hemorrhoids SOB (shortness of breath) (Acute) Anemia (Acute) Weakness (Acute) Rectal bleeding (Acute) Acute anemia Lower gastrointestinal bleed Chronic steroid use Sick sinus syndrome HTN, goal below 140/90 Prediabetes CKD (chronic kidney disease) stage 3, GFR 30-59 ml/min A-fib (Chronic) Rheumatoid arthritis Left knee DJD (Acute) Strain of left knee (Acute) Medical History Anxiety Lymphedema Breast cancer Surgical History History of tubal ligation History of D&C History of ankle surgery History of lumpectomy of left breast Family History Mother Cancer Diabetes Brother Cancer Daughter Breast cancer Father Diabetes Social History Smoking Status: Never smoker Hx Alcohol Use: No Hx Substance Use: No Preferred Language: New Zealander Communication Ability: Effective Green [employer] Marker Required: No Beliefs That Will Affect Care: None Current Living Situation: Alone Feels Safe at Home: Yes Safety Concerns: Feels Safe At This Time Assistive Devices: Cane and Walker Review of Systems Review of Systems: At least ten systems reviewed and negative, except as noted in the HPI. Physical Exam Physical Exam: Please refer to Dr. Roca's addendum for physical examination findings. Results & Data Results & Data Vital Signs (Past 12 Hours) Vital Signs Temp Pulse Pulse Resp BP BP Pulse Ox 04/06/25 09:14 76 04/06/25 08:57 69 14 99 04/06/25 08:44 70 18 167/78 H 99 04/06/25 08:43 36.6 C 70 20 152/83 H 93 O2 Del Method 04/06/25 09:14 04/06/25 08:57 Room Air 04/06/25 08:44 Room Air 04/06/25 08:43 Room Air Laboratory Results Short CBC 04/06/25 Range/Units 09:10 WBC 8.60 (4.8-10.8) K/ul Hgb 7.2 L (12.0-16.0) g/dl Hct 24.6 L (37.0-47.0) % Plt Count 397 (130-400) K/uL BMP 04/06/25 09:10 Sodium 141 Potassium 3.8 Chloride 107 Carbon Dioxide 28 BUN 17 Creatinine 1.06 Glucose 108 H Calcium 8.6 Liver Function 04/06/25 Range/Units 09:10 Total Bilirubin 0.4 (0.2-1.0) mg/dl AST 11 L (13-39) U/L ALT 6 L (7-52) U/L Alkaline Phosphatase 42 (34-104) U/L Albumin 3.6 (3.4-5.0) gm/dl Diagnostic Findings Abdomen/Pelvis CT 04/06/25 10:32 CT SCAN OF THE ABDOMEN AND PELVIS WITH IV CONTRAST CLINICAL HISTORY: Lower GI bleeding. COMPARISON STUDY: Abdominal CT dated 12/17/2022 TECHNIQUE: Following the IV administration of 94 cc of Optiray 320, CT scan of the abdomen and pelvis is performed from the lung bases to the proximal femora. Images are reviewed in the axial, sagittal, and coronal planes. IV contrast was administered without complication. A dose lowering technique was utilized adhering to the principles of ALARA. CT DOSE: 1521.25 mGy.cm FINDINGS: Lung bases: The heart is enlarged and without pericardial effusion. The lung bases are clear noting bibasilar scarring/atelectasis. An approximately 3 x 1 cm collection is again seen in the left breast on image #50 and favors a seroma. Liver: The contrast-enhanced liver is normal in size, contour, and attenuation. There is no intrahepatic biliary ductal dilatation. The hepatic veins and portal veins are patent. Gallbladder: Unremarkable. Spleen: Normal in size and attenuation. There are calcified splenic granulomas. Pancreas: Unremarkable. Adrenal glands: Unremarkable. Kidneys: The contrast enhanced kidneys demonstrate cortical atrophy and are without hydronephrosis. The kidneys enhance symmetrically. Scattered subcentimeter cortical hypodensities likely represent cysts but are too small for definitive characterization. Abdominal vasculature: The abdominal aorta is normal in course and caliber noting mild atherosclerotic calcification. Bowel: There is no bowel obstruction. Hyperdense material within the lower rectum just above the anal junction is seen on axial image #377 and may represent intraluminal contrast. No additional foci of intraluminal contrast are suspected. The appendix is well-visualized and normal. Peritoneum: There is no intraperitoneal free air or abdominal ascites. There is a fat-containing umbilical hernia. Lymphadenopathy: None. Pelvic viscera: The bladder, uterus, and adnexa are normal as visualized. Skeletal structures: The skeletal structures are osteopenic. There is mild l umbosacral spondylosis and scoliosis. No lytic or blastic lesions are seen. IMPRESSION: 1. No acute infectious or inflammatory findings are identified in the abdomen or pelvis. 2. Hyperdense material within the lower rectum just above the anal junction may represent intraluminal contrast/a focus of GI bleeding. If warranted this could be further assessed with direct visualization. 3. Cardiomegaly. 4. Additional findings as above. ACT 112: Negative or not required by law. Electronically signed by: Quinn Conner M.D. 04/06/2025 11:27 AM Medications Administered Discontinued Medications Sodium Chloride (Nss) 1,000 mls @ 999 mls/hr IV .Q1H1M STA Stop: 04/06/25 09:57 Last Infusion: 04/06/25 10:23 Dose: Infused Documented By: Admin: 04/06/25 09:18 Dose: 999 mls/hr Documented By: TERRY Ioversol (Optiray 320 100ml) 94 ml IV ONCE ONE Stop: 04/06/25 11:00 Last Admin: 04/06/25 10:59 Dose: 94 ml Documented By: ROSE Code Status & VTE Plan Code Status FULL CODE Supervising Physician Co-Signing Physician Notes Pt seen and examined by me, care coordinated w/ Adriane Guerrero PA-C, pls refer to her note above for further detail. Pt is an 79 y/o F with hx of rheumatoid arthritis, Afib (not on anticoagulation d/t hx of GI bleed), CKD stage 3, breast ca who presents with GI bleed and anemia. Pt reports she has been having very dark/black stool for the past week and also visible blood per rectum. She is aware of having hemorrhoids and was hospitalized 2 year ago for GI bleed. Says that usually she does not have any issues with her stools but lately she was constipated, had to strain and that's when she develops bleed. She felt very weak and knew she needed to be seen in ED. In ED Hgb was found to be low at 7.2, blood consent was obtained in ED and pt is getting blood transfusion on my evaluation in the room, in presence of Adriane and RN. Pt is awake, alert, answering appropriately. She appears pale. Denies abdominal pain and abd. is nontender on palpation. External visualization of external hemorrhoids, no blood seen, no internal rectal exam performed. Lungs w/ decreased breath sounds, heart sounds irregular, minimal LE edema b/l, pt moves extremities w/o difficulty. Cont. w/ blood transfusion, NPO, GI consult. Cont. to closely monitor H&H and hemodynamic status. MD Chanelle (1) GI bleed GI bleed type/associated pathology: unspecified gastrointestinal hemorrhage type Qualified Code(s): K92.2 - Gastrointestinal hemorrhage, unspecified
[2025-04-06 12:07] LABS: Bacteria Urine Automated None Seen (None Seen); Cast Urine Automated 0-2 /lpf (0-2); RBC Urine Automated 0-2 /hpf (0-2); WBC Urine Automated 0-5 /hpf (0-5)
--- NOTE | 2025-04-06 14:52 | Gastrointestinal Consultation ---
Date of Consultation April 06, 2025 Assessment & Plan (1) Acute lower GI bleeding: Painless rectal bleeding/symptomatic anemia. Suspect related to her significant hemorrhoidal disease exacerbated by constipation. -Flex sig on 04/07/25 for direct visualization -NPO after midnight -Tap water enemas tomorrow -Continue to monitor H/H -Supportive care/blood transfusion per primary team -Discussed daily constipation maintenance with Milk of Magnesia since she tolerates it well -Discussed outpatient colorectal referral for hemorrhoidal banding Supervising Physician Co-Signing Physician Notes Chronic constipation takes milk of magnesia every week or so. Should take more frequently. Bleeding consistent with hemorrhoidal bleeding previous documentation back in 2022. CT on this admission shows some hyperdense material in the anal area consistent with hemorrhage. Examination shows both internal/external hemorrhoids significant prolapse in the right anterior and left lateral position. Probable component of iron deficiency. Transfuse. Iron supplementation. Chronic laxative therapy Milk of Magnesia every day or every other day could be undertaken. Alternatively she can be started on mag oxide when she sees her eyelet row marker. Patient has refused hemorrhoidal therapy in the past. She would be a candidate for trial of [facility] hemorrhoidal banding which is relatively noninvasive and not as painful as she is understand with full hemorrhoidectomy. Likely tomorrow to exclude bleeding above the hemorrhoidal bed History of Present Illness Reason for Consultation: GI bleeding History of Present Illness Patient is an 79 yo female with PMH of permanent Afib, hemorrhoids, sick sinus syndrome, rheumatoid arthritis, and CKD who presents to the hospital with one week of rectal bleeding. She notes that she began having bright red and maroon colored stool 1 week ago after using a fleet enema for constipation. She notes chronic constipation that has not responded well to maintenance medications such as Miralax. She notes she takes Milk of Magnesia every 10 days and suppositories/enemas prn. She notes she is used to hemorrhoidal bleeding, but this bleeding was more significant and she was feeling weak and fatigued. Her H/H upon presentation was 7.2/24.6. Last H/H in our system was from 2022 when she was admitted for hemorrhoidal bleeding. At that time it was 9.2/30.5. She had a colonoscopy at that time that indicated internal/external hemorrhoids and a 1 cm polyp. She is currently receiving a transfusion of PRBCs. She had a CT scan in the ED that indicated hyperdense material above the anal junction. No abdominal pain or rectal pain. No history of hemorrhoid surgery. Allergies Allergy/AdvReac Type Severity Reaction Status Date / Time nickel Allergy Mild SKIN Verified 12/19/22 10:48 IRRITATION ciprofloxacin [From Cipro] AdvReac Severe DESTROYED Verified 12/19/22 10:48 LIGAMENTS IN KNEE naproxen AdvReac Intermediate gi upset Verified 12/19/22 10:48 rofecoxib AdvReac Intermediate irregular Verified 12/19/22 10:48 heartbeat lisinopril AdvReac Cough Verified 12/19/22 10:48 Home Medications Medication Instructions Recorded Confirmed Type alprazolam 0.25 mg tablet 0.25 mg PO BID PRN Anxiety 12/17/22 04/06/25 History hydrocodone 5 mg-acetaminophen 325 1 tab PO Q8H PRN Severe Pain 12/17/22 04/06/25 History mg tablet (Scale Score 7-10) metoprolol succinate 25 mg 50 mg PO BID 12/17/22 04/06/25 History tablet,extended release 24 hr prednisone 5 mg tablet 5 mg PO QAM 12/17/22 04/06/25 History cyanocobalamin (vitamin B-12) 1,000 mcg PO DAILY #30 caps 12/20/22 04/06/25 Rx 1,000 mcg capsule ferrous sulfate 325 mg (65 mg 325 mg PO DAILY #30 tabs 12/20/22 04/06/25 Rx iron) tablet Patient History Medical History Anxiety Lymphedema Breast cancer Surgical History History of tubal ligation History of D&C History of ankle surgery History of lumpectomy of left breast Family History Mother Cancer Diabetes Brother Cancer Daughter Breast cancer Father Diabetes Social History Smoking Status: Never smoker Hx Alcohol Use: No Hx Substance Use: No Preferred Language: Mohawk Communication Ability: Effective Maintenance Electrician Required: No Beliefs That Will Affect Care: None Current Living Situation: Alone Feels Safe at Home: Yes Safety Concerns: Feels Safe At This Time Assistive Devices: Cane and Walker Review of Systems Constitutional: no fever and no chills Respiratory: no cough and no dyspnea Cardiovascular: no chest pain Gastrointestinal: + constipation and + blood in stools; no abdominal pain, no bloating, no heartburn, no nausea, no vomiting, no coffee ground emesis, no hematemesis, no diarrhea/loose stools and no melena Physical Exam Constitutional: well developed Respiratory: normal respiratory effort Cardiovascular: Rate/Rhythm: regular rate Gastrointestinal (Abdomen): normal bowel sounds, soft, nontender, no hepatosplenomegaly Psychiatric: Orientation: alert and oriented x 3 Results & Data Vital Signs (Past 12 Hours) Vital Signs Temp Pulse Pulse Resp BP BP Pulse Ox 04/06/25 14:23 36.7 C 67 18 147/82 H 96 04/06/25 14:00 72 18 149/66 H 95 04/06/25 13:34 36.7 C 65 18 142/57 H 92 04/06/25 13:04 36.6 C 84 18 148/63 H 95 04/06/25 12:49 36.7 C 74 16 155/83 H 98 04/06/25 12:25 37 C 82 17 173/87 H 92 04/06/25 12:00 76 17 145/72 H 93 04/06/25 09:14 76 04/06/25 08:57 69 14 99 04/06/25 08:44 70 18 167/78 H 99 04/06/25 08:43 36.6 C 70 20 152/83 H 93 O2 Del Method 04/06/25 14:23 Room Air 04/06/25 14:00 Room Air 04/06/25 13:34 04/06/25 13:04 04/06/25 12:49 04/06/25 12:25 04/06/25 12:00 Room Air 04/06/25 09:14 04/06/25 08:57 Room Air 04/06/25 08:44 Room Air 04/06/25 08:43 Room Air PG Care Time/CCT Total # of Minutes Spent Total Time Spent with Patient: Total time spent is greater than 50% in coordination of care (as documented) at patient's floor/unit and/or counseling patient: Coding Level of Care Code 57388 INT INP/OBS CARE MIN Diagnoses Acute lower GI bleeding K92.2
[2025-04-06] MEDS ORDERED: ONDANSETRON INJ 2 MG/ML 2 ML VIAL IV PRN (15:13)
[2025-04-06] MEDS ORDERED: ACETAMINOPHEN 325 MG TAB PO PRN (15:13)
[2025-04-06] MEDS: METOPROLOL SUCC 50MG EXT REL TAB PO SCH (17:51)
[2025-04-06] MEDS ORDERED: LAVAGE SOLUTION 4000ML PO SCH (18:00)
[2025-04-06 18:57] LABS: Hematocrit (blood only) 29.2 % (37.0-47.0); Hemoglobin 9.1 g/dl (12.0-16.0)
[2025-04-07 01:00] LABS: Hematocrit (blood only) 26.6 % (37.0-47.0); Hemoglobin 8.2 g/dl (12.0-16.0)
[2025-04-07 06:30] LABS: Hematocrit (blood only) 28.4 % (37.0-47.0); Hemoglobin 8.9 g/dl (12.0-16.0); Immature Granulocytes # (auto) 0.05 K/uL (0.01-0.20); Immature Granulocytes % (auto) 0.6 %; Mean Corpuscular Hemoglobin 25.9 pg (25.0-34.0); Mean Corpuscular Volume 82.8 fL (80.0-100.0); Platelet Count 332 K/uL (130-400); RDW Standard Deviation 41.6 fL (36.4-46.3); Red Blood Count 3.43 M/uL (4.20-5.40); White Blood Count 8.08 K/ul (4.8-10.8)
[2025-04-07 07:02] LABS: Alanine Aminotransferase 6.0 U/L (7-52); Albumin Globulin Ratio 1.4 (0.9-2); Alkaline Phosphatase 41.0 U/L (34-104); Anion Gap 7.0 (3-11); Bilirubin,Total 1.0 mg/dl (0.2-1.0); Blood Urea Nitrogen 11.0 mg/dl (6-23); Calcium 8.7 mg/dl (8.6-10.3); Carbon Dioxide 27.0 mmol/L (21-32); Chloride 110.0 mmol/L (98-107); Creatinine Clr Calc Pharmacy 71.5 ml/min; Globulin 2.4 gm/dl (2.5-4.0); Glucose 92.0 mg/dl (70-99(Fasting)); Magnesium 2.2 mg/dl (1.7-2.4); Potassium 3.9 mmol/L (3.5-5.1); Sodium 144.0 mmol/L (136-145); Total Protein 5.7 gm/dl (6.0-8.3)
[2025-04-07] MEDS: CYANOCOBALAMIN (B-12) 500 MCG TABLET PO SCH (08:07)
[2025-04-07] MEDS: FERROUS SULFATE 325 MG TAB PO SCH (08:07)
--- NOTE | 2025-04-07 10:15 | History & Physical Bridge Note ---
Date of Service April 07, 2025 History & Physical Bridge Note I have examined the patient, reviewed the History & Physical and in the interval since the performance of the History & Physical I have noted the following changes of clinical significance: no changes noted Patient is an 79 yo female with rectal bleeding. She recently was given 2 enemas prior to my visit. She has had several bowel movements with clots of blood, diarrhea, and solid stool, but is not done prepping at this time. If patient continues to respond to enemas, will plan to move forward with flex sig this afternoon. Keep NPO. Supervising Physician Co-Signing Physician Notes Had had some blood with enemas. States she just had a normal bowel movement without blood at all. This would be consistent with hemorrhoidal bleeding. Proceed with flexible sigmoidoscopy today for evaluation. Informed consent obtained
--- NOTE | 2025-04-07 11:14 | Anesthesiology Consultation ---
Date of Service April 07, 2025 Assessment & Plan Consults Requested medical & cardiac Pulmonary ASA ASA3 Proposed Anesthesia Anesthesia Type: MAC Risk / Benefits Reviewed With: PT / POA / Parent / Guardian, Accepts Plan and Informed Consent Obtained History Surgery Operation Date: 04/07/25 16:30 Proposed Procedures p Flexible Sigmoidoscopy Dr. Wade Olvera MD Height/Weight Height: 5 ft 5 in Weight: 117.1 kg Allergies Allergy/AdvReac Type Severity Reaction Status Date / Time nickel Allergy Mild SKIN Verified 12/19/22 10:48 IRRITATION ciprofloxacin [From Cipro] AdvReac Severe DESTROYED Verified 12/19/22 10:48 LIGAMENTS IN KNEE naproxen AdvReac Intermediate gi upset Verified 12/19/22 10:48 rofecoxib AdvReac Intermediate irregular Verified 12/19/22 10:48 heartbeat lisinopril AdvReac Cough Verified 12/19/22 10:48 Medications Home Medications Medication Instructions Recorded Confirmed Last Taken alprazolam 0.25 mg tablet 0.25 mg PO BID PRN Anxiety 12/17/22 04/06/25 12/17/22 08:00 hydrocodone 5 mg-acetaminophen 325 1 tab PO Q8H PRN Severe Pain 12/17/22 04/06/25 12/17/22 07:00 mg tablet (Scale Score 7-10) metoprolol succinate 25 mg 50 mg PO BID 12/17/22 04/06/25 12/17/22 07:00 tablet,extended release 24 hr prednisone 5 mg tablet 5 mg PO QAM 12/17/22 04/06/25 12/16/22 cyanocobalamin (vitamin B-12) 1,000 mcg PO DAILY #30 caps 12/20/22 04/06/25 Unknown 1,000 mcg capsule ferrous sulfate 325 mg (65 mg 325 mg PO DAILY #30 tabs 12/20/22 04/06/25 Unknown iron) tablet Active Medications Generic Name Dose Route Start Last Admin Trade Name Freq PRN Reason Stop Dose Admin Alprazolam 0.25 mg 04/06/25 14:19 04/07/25 08:07 Alprazolam 0.25 Mg Tablet PO 05/06/25 14:18 0.25 mg BID PRN Administration Anxiety Cyanocobalamin 1,000 mcg 04/07/25 09:00 04/07/25 08:07 Cyanocobalamin (B-12) 500 Mcg Tablet PO 05/07/25 08:59 1,000 mcg DAILY DESIRAE Administration Ferrous Sulfate 325 mg 04/07/25 09:00 04/07/25 08:07 Ferrous Sulfate 325 Mg Tab PO 05/07/25 08:59 325 mg DAILY DESIRAE Administration Metoprolol Succinate 50 mg 04/06/25 21:00 04/07/25 08:08 Metoprolol Succ 50mg Ext Rel Tab PO 05/06/25 20:59 50 mg BID DESIRAE Administration Prednisone 5 mg 04/07/25 09:00 04/07/25 08:08 Prednisone 5 Mg Tab PO 05/07/25 08:59 5 mg QAM DESIRAE Administration NPO Date Last Intake of Fluids: 04/07/25 Time Last Intake of Fluids: 08:00 Last Intake of Fluids Comment: sip with meds Date Last Intake of Solids: 04/05/25 Time Last Intake of Solids: 18:00 Past Medical History Medical History Anxiety Lymphedema Breast cancer Exercise / Class Metabolic Activity IV < 2 Limit ADL/Bedbound Past Family History Family History Mother Cancer Diabetes Brother Cancer Daughter Breast cancer Father Diabetes Past Surgical History Surgical History History of tubal ligation History of D&C History of ankle surgery History of lumpectomy of left breast Past Anesthesia History No Hx of Anesthesia Complications and No Family Hx of Anesthesia Complications History of PONV No Hx of PONV and No Hx of Motion Sickness Social History Smoking Status: Never smoker Hx Alcohol Use: No Hx Substance Use: No substance use type: does not use Physical Exam Vital Signs Last Vital Signs Temp 37.1 C 04/07/25 10:52 Pulse 81 04/07/25 10:52 Resp 18 04/07/25 10:52 BP 157/80 H 04/07/25 10:52 Pulse Ox 97 04/07/25 10:52 O2 Del Method Room Air 04/07/25 10:52 Constitutional + morbidly obese; no acute distress ENMT Mouth: + poor dentition and + chipped teeth; no TMJ abnormality Thyromental Distance: > or= 3.5 Finger Breadths Mallampati Class: III Neck normal visual inspection and + thick neck Respiratory normal respiratory effort Auscultation: lungs clear to auscultation bilaterally and + diminished lung sounds Cardiovascular Rate/Rhythm: + abnormal rate and + abnormal rhythm Musculoskeletal Spine: + limited cervical ROM Psychiatric Orientation: alert and oriented x 3 Testing Laboratory Results 04/07/25 05:37 04/07/25 05:37 PT 10.7 Seconds (9.0-12.0) 04/06/25 09:10 INR 1.0 (0.9-1.1) 04/06/25 09:10 Urine Color Yellow 04/06/25 11:15 Urine Appearance Clear (Clear) 04/06/25 11:15 Urine pH 6.5 (4.5-7.5) 04/06/25 11:15 Ur Specific [place] 1.010 (1.000-1.030) 04/06/25 11:15 Urine Protein Negative (Negative) 04/06/25 11:15 Urine Glucose (UA) Negative (Negative) 04/06/25 11:15 Urine Ketones Negative (Negative) 04/06/25 11:15 Urine Nitrite Negative (Negative) 04/06/25 11:15 Ur Leukocyte Esterase Trace (Negative) H 04/06/25 11:15 Urine WBC (Auto) 0-5 /hpf (0-5) 04/06/25 11:15 Urine RBC (Auto) 0-2 /hpf (0-2) 04/06/25 11:15 U Hyaline Cast (Auto) 0-2 /lpf (0-2) 04/06/25 11:15 U Epithel Cells (Auto) 3-5 /hpf (0-2) H 04/06/25 11:15 Urine Bacteria (Auto) None Seen (None Seen) 04/06/25 11:15 Urine RBC Not Reportable 04/06/25 11:15 Urine WBC Not Reportable 04/06/25 11:15 Ur Epithelial Cells Not Reportable 04/06/25 11:15 Blood Type A Positive 04/06/25 09:09 Antibody Screen NEGATIVE 04/06/25 09:09
--- NOTE | 2025-04-07 11:48 | Hospitalist Progress Note ---
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 Acute lower GI bleed H/O Internal and external hemorrhoids Chronic constipation Acute blood loss anemia --CT ABD:No acute infectious or inflammatory findings are identified in the abd omen or pelvis. Hyperdense material within the lower rectum just above the anal junction may represent intraluminal contrast/a focus of GI bleeding. --S/P 2 units PRBCs -- Avoid NSAIDs, anticoagulation --Monitor H&H and transfuse as needed -- Plan for flexible sigmoidoscopy today --Appreciate GI input Rheumatoid arthritis Continue prednisone Continue PRN Hydrocodone as needed Tachy-vladimir syndrome Permanent afib Patient refused pacemaker in the past per record Rate-controlled Not on chronic anticoagulation at baseline Continue metoprolol succinate 50 mg twice a day Follows with [facility] cardiology Morbid obesity BMI 43 DVT Px: SCDs/TEDs Re: GI bleed Admission and Anticipated Discharge Date Admission Date: April 06, 2025 Subjective Patient is seen and examined at bedside States having bloody bowel movement after enema this morning Plan for flexible sigmoidoscopy today Also reports having nausea associated with generalized weakness Denies any chest pain, abdominal pain, dizziness No other complaints Review of Systems Review of Systems: All systems reviewed & are unremarkable except as noted in Subjective Physical Exam Physical Exam: Physical Exam: Vitals signs as noted above General Appearance:Obese, no apparent distress Head: normocephalic, Atraumatic Eyes: normal inspection, EOMI Neck: supple, Trachea midline Respiratory/Chest: Normal breath sounds, CTA, No accessory muscle use Cardiovascular: Irregularly irregular No murmur Abdomen/GI:Soft, Non tender, Bowel sounds present Extremities/Musculoskeletal:normal inspection, trace edema Neurologic/Psych:AAOX3, grossly no focal neurological deficits Skin: normal color, warm Results & Data Results & Data Vital Signs (Past 12 Hours) Vital Signs Temp Pulse Pulse Resp BP Pulse Ox O2 Del Method 04/07/25 11:16 71 04/07/25 10:52 37.1 C 81 18 157/80 H 97 Room Air 04/07/25 07:31 37.1 C 66 17 124/62 93 Room Air 04/07/25 03:34 36.8 C 69 18 142/75 H 95 Room Air Laboratory Results Short CBC 04/06/25 04/07/25 04/07/25 Range/Units 17:50 00:24 05:37 WBC 8.08 (4.8-10.8) K/ul Hgb 9.1 L 8.2 L 8.9 L (12.0-16.0) g/dl Hct 29.2 L 26.6 L 28.4 L (37.0-47.0) % Plt Count 332 (130-400) K/uL BMP 04/07/25 05:37 Sodium 144 Potassium 3.9 Chloride 110 H Carbon Dioxide 27 BUN 11 Creatinine 0.79 Glucose 92 Calcium 8.7 Liver Function 04/07/25 Range/Units 05:37 Total Bilirubin 1.0 D (0.2-1.0) mg/dl AST 12 L (13-39) U/L ALT 6 L (7-52) U/L Alkaline Phosphatase 41 (34-104) U/L Albumin 3.3 L (3.4-5.0) gm/dl Urine 04/06/25 Range/Units 11:15 Urine Color Yellow Urine Appearance Clear (Clear) Urine pH 6.5 (4.5-7.5) Ur Specific [place] 1.010 (1.000-1.030) Urine Protein Negative (Negative) Urine Glucose (UA) Negative (Negative) (1) GI bleed GI bleed type/associated pathology: unspecified gastrointestinal hemorrhage type Qualified Code(s): K92.2 - Gastrointestinal hemorrhage, unspecified
--- NOTE | 2025-04-07 11:57 | Communication Note ---
Date of Service: April 07, 2025 Flex sig to descending colon. She has diverticulosis but there is no blood in the colon. Diverticular bleeding should be associated with blood within the pockets. Even in cessation of bleeding. There is stool without blood throughout the colon. There are marked dilation internal hemorrhoids with excoriation and surface blebs. This is consistent with source of bleeding. Recommend surgery consultation.
--- NOTE | 2025-04-07 12:00 | GI REPORT ---
[facility] Patient: EZRA COTTON : 1945 Sex at : Female Age: 79 Years Procedure: Flexible Sigmoidoscopy Date: 04/07/2025 Attending Physician: Amrit Olvera MD Referring MD: Tay Castorena Md Indications: - Rectal hemorrhage Medications: - Monitored Anesthesia Care Complications: - No immediate complications. Estimated Blood Loss: - Estimated blood loss: None. Procedure: - The adult colonscope was introduced through the anus and advanced to the descending colon. - The flexible sigmoidoscopy was accomplished without difficulty. - The quality of the bowel preparation was fair. Findings: - Hemorrhoids were found on perianal exam. - A moderate amount of stool was found in the entire colon, interfering with visualization. - No blood in the entirety of the lower GI tract. This includes within the diverticular orifices. The stool we visualized also contains no blood. - Marked dilation internal hemorrhoids with evidence of prolapse surface excoriation and inflammation. Surface blebs. This is consistent with source of bleeding. Impression: - Preparation of the colon was fair. - Hemorrhoids found on perianal exam. - Stool in the entire examined colon. - No blood in the entirety of the lower GI tract. This includes within the diverticular orifices. The stool we visualized also contains no blood. - Marked dilation internal hemorrhoids with evidence of prolapse surface excoriation and inflammation. Surface blebs. This is consistent with source of bleeding. - No specimens collected. Recommendation: - Surgical consultation consider banding or hemorrhoidectomy Procedure Code(s): - 06809, Sigmoidoscopy, flexible; diagnostic, including collection of specimen(s) by brushing or washing, when performed (separate procedure) Diagnosis Code(s): - K62.5, Hemorrhage of anus and rectum - K64.9, Unspecified hemorrhoids CPT(R) - 2023 copyright [employer]. All Rights Reserved. The CPT codes, CCI edits and ICD codes generated are intended as suggestions and were generated based on input data. These codes are preliminary and upon pulper tender review may be revised to meet current compliance and payer requirements. The provider is responsible for the final determination of appropriate codes, and modifiers. Amrit Olvera MD This document has been electronically signed. Note Initiated:04/07/2025 Note Completed:04/07/2025 11:59 AM \\[email or web address]\[id number]
[2025-04-07] MEDS: PROPOFOL IV EMULSION 10 MG/ML 20 ML VIAL IV ONE (12:15)
[2025-04-07] MEDS: ONDANSETRON INJ 2 MG/ML 2 ML VIAL ONE (12:15)
[2025-04-07] MEDS: LIDOCAINE 2% 2 ML VIAL/AMP(20MG/ML) INFIL ONE (12:15)
[2025-04-07] MEDS: HYDROCODONE/ACETAMOPHEN 5/325MG TAB PO PRN (12:28)
--- NOTE | 2025-04-07 12:38 | Anesthesiology Progress Note ---
Date of Service April 07, 2025 Anesthesia Post Procedure Vital Signs Vital Signs: Temp Pulse Pulse Resp BP BP Pulse Ox 04/07/25 12:27 36.6 C 78 14 146/55 H 95 04/07/25 12:06 74 14 127/77 92 04/07/25 11:54 90 16 146/80 H 93 04/07/25 11:44 80 16 114/59 L 96 04/07/25 11:16 71 04/07/25 10:52 37.1 C 81 18 157/80 H 97 04/07/25 07:31 37.1 C 66 17 124/62 93 04/07/25 03:34 36.8 C 69 18 142/75 H 95 04/06/25 22:18 36.6 C 78 21 148/68 H 96 04/06/25 22:06 64 04/06/25 19:53 36.7 C 70 20 159/77 H 96 04/06/25 17:45 150/86 H 04/06/25 17:45 150/86 H 04/06/25 17:45 150/86 H 04/06/25 17:45 60 14 92 04/06/25 17:38 130/75 04/06/25 17:37 36.7 C 04/06/25 17:30 36.9 C 04/06/25 17:30 68 21 96 04/06/25 17:30 136/87 04/06/25 17:30 136/87 04/06/25 17:30 136/87 04/06/25 17:15 69 19 96 04/06/25 17:15 142/71 H 04/06/25 17:15 142/71 H 04/06/25 17:00 36.7 C 04/06/25 17:00 68 12 94 04/06/25 17:00 142/81 H 04/06/25 17:00 142/81 H 04/06/25 17:00 142/81 H 04/06/25 16:45 93/77 L 04/06/25 16:45 93/77 L 04/06/25 16:45 93/77 L 04/06/25 16:45 75 16 95 04/06/25 16:31 140/51 L 04/06/25 16:31 140/51 L 04/06/25 16:31 140/51 L 04/06/25 16:31 140/51 L 04/06/25 16:30 36.8 C 04/06/25 16:30 78 22 97 04/06/25 16:18 90 20 95 04/06/25 16:15 139/79 04/06/25 16:09 65 17 95 04/06/25 16:06 63 15 96 04/06/25 16:00 36.8 C 04/06/25 15:45 67 18 94 04/06/25 15:38 36.8 C 72 16 161/76 H 94 04/06/25 15:16 36.6 C 76 18 149/91 H 92 04/06/25 15:00 36.6 C 78 22 168/56 H 94 04/06/25 14:23 36.7 C 67 18 147/82 H 96 04/06/25 14:00 72 18 149/66 H 95 04/06/25 13:34 36.7 C 65 18 142/57 H 92 04/06/25 13:04 36.6 C 84 18 148/63 H 95 04/06/25 12:49 36.7 C 74 16 155/83 H 98 O2 Del Method O2 Flow Rate 04/07/25 12:27 Room Air 04/07/25 12:06 Room Air 04/07/25 11:54 Room Air 04/07/25 11:44 Oxymask 5 04/07/25 11:16 04/07/25 10:52 Room Air 04/07/25 07:31 Room Air 04/07/25 03:34 Room Air 04/06/25 22:18 Room Air 04/06/25 22:06 04/06/25 19:53 Room Air 04/06/25 17:45 04/06/25 17:45 04/06/25 17:45 04/06/25 17:45 Room Air 04/06/25 17:38 04/06/25 17:37 04/06/25 17:30 04/06/25 17:30 04/06/25 17:30 04/06/25 17:30 04/06/25 17:30 04/06/25 17:15 04/06/25 17:15 04/06/25 17:15 04/06/25 17:00 04/06/25 17:00 04/06/25 17:00 04/06/25 17:00 04/06/25 17:00 04/06/25 16:45 04/06/25 16:45 04/06/25 16:45 04/06/25 16:45 Room Air 04/06/25 16:31 04/06/25 16:31 04/06/25 16:31 04/06/25 16:31 04/06/25 16:30 04/06/25 16:30 04/06/25 16:18 04/06/25 16:15 04/06/25 16:09 04/06/25 16:06 04/06/25 16:00 04/06/25 15:45 Room Air 04/06/25 15:38 04/06/25 15:16 04/06/25 15:00 Room Air 04/06/25 14:23 Room Air 04/06/25 14:00 Room Air 04/06/25 13:34 04/06/25 13:04 04/06/25 12:49 Transfer of Care Handoff Completed per policy Notes Mental Status: alert / awake / arousable Patient Amnestic to Procedure: Yes Nausea / Vomiting: adequately controlled Pain: adequately controlled Airway Patency, RR, SpO2: stable & adequate BP & HR: stable & adequate Hydration State: stable & adequate Anesthetic Complications: no major complications apparent and Pt Satisfied with anesthetic care
[2025-04-07 14:43] LABS: Hematocrit (blood only) 31.4 % (37.0-47.0); Hemoglobin 9.7 g/dl (12.0-16.0)
--- NOTE | 2025-04-07 15:39 | Communication Note ---
Date of Service: April 07, 2025 Rectal bleed thought to be hemorrhoidal in nature. Reviewed sigmoidoscopy results. Discussed with surgery team. Recommends hemorrhoidectomy versus hem orrhoidal banding as outpatient by colorectal surgery. Conservative management for now. Will start liquid diet and monitor H&H.
[2025-04-07] MEDS: DOCUSATE SODIUM 100 MG CAP PO SCH (20:23)
[2025-04-08 05:58] LABS: Hematocrit (blood only) 27.7 % (37.0-47.0); Hemoglobin 8.5 g/dl (12.0-16.0); Mean Corpuscular Hemoglobin 25.9 pg (25.0-34.0); Mean Corpuscular Volume 84.5 fL (80.0-100.0); Platelet Count 288 K/uL (130-400); RDW Standard Deviation 44.1 fL (36.4-46.3); Red Blood Count 3.28 M/uL (4.20-5.40); White Blood Count 8.69 K/ul (4.8-10.8)
[2025-04-08 06:15] LABS: Anion Gap 4.0 (3-11); Blood Urea Nitrogen 10.0 mg/dl (6-23); Calcium 8.4 mg/dl (8.6-10.3); Carbon Dioxide 28.0 mmol/L (21-32); Chloride 110.0 mmol/L (98-107); Creatinine Clr Calc Pharmacy 60.0 ml/min; Glucose 100.0 mg/dl (70-99(Fasting)); Potassium 4.1 mmol/L (3.5-5.1); Sodium 142.0 mmol/L (136-145)
[2025-04-08] MEDS: POLYETHYLENE (MIRALAX) 17 GM PACK PO PRN (08:13)
--- NOTE | 2025-04-08 13:15 | Hospitalist Progress Note ---
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 Acute lower GI bleed secondary to hemorrhoidal bleed H/O Internal and external hemorrhoids Chronic constipation Acute blood loss anemia --CT ABD:No acute infectious or inflammatory findings are identified in the abdomen or pelvis. Hyperdense material within the lower rectum just above the anal junction may represent intraluminal contrast/a focus of GI bleeding. --S/P 2 units PRBCs --S/P flexible sigmoidoscopy:- Preparation of the colon was fair. Hemorrhoids found on perianal exam. Stool in the entire examined colon. No blood in the entirety of the lower GI tract. This includes within the diverticular orifices. The stool we visualized also contains no blood. Marked dilation internal hemorrhoids with evidence of prolapse surface excoriation and inflammation. Surface blebs. This is consistent with source of bleeding. No specimens collected. -- Avoid NSAIDs, anticoagulation --Monitor H&H and transfuse as needed -- Appreciate GI input --Advance diet as tolerated -- Discussed with general surgery on 04/07/2025:Recommends hemorrhoidectomy versus hemorrhoidal banding as outpatient by colorectal surgery Advised patient to follow-up with colorectal surgery as outpatient Rheumatoid arthritis Continue prednisone Continue PRN Hydrocodone as needed Tachy-vladimir syndrome Permanent afib Patient refused pacemaker in the past per record Rate-controlled Not on chronic anticoagulation at baseline Continue metoprolol succinate 50 mg twice a day Follows with [facility] cardiology Morbid obesity BMI 43 DVT Px: SCDs/TEDs Re: GI bleed Disposition Home as able Admission and Anticipated Discharge Date Admission Date: April 06, 2025 Subjective Patient is seen and examined at bedside States feeling fatigued No recurrence of rectal bleed today Denies any chest pain, dyspnea, nausea, vomiting, abdominal pain, dizziness Tolerating current diet Review of Systems Review of Systems: All systems reviewed & are unremarkable except as noted in Subjective Physical Exam Physical Exam: Physical Exam: Vitals signs as noted above General Appearance:Obese, no apparent distress Head: normocephalic, Atraumatic Eyes: normal inspection, EOMI Neck: supple, Trachea midline Respiratory/Chest: Normal breath sounds, CTA, No accessory muscle use Cardiovascular: Irregularly irregular No murmur Abdomen/GI:Soft, Non tender, Bowel sounds present Extremities/Musculoskeletal:normal inspection, trace edema Neurologic/Psych:AAOX3, grossly no focal neurological deficits Skin: normal color, warm Results & Data Results & Data Vital Signs (Past 12 Hours) Vital Signs Temp Pulse Pulse Resp BP Pulse Ox O2 Del Method 04/08/25 11:21 36.6 C 71 19 116/61 92 Room Air 04/08/25 06:59 36.5 C 69 15 122/54 L 97 Room Air 04/08/25 05:53 58 L 04/08/25 02:57 36.5 C 67 18 120/51 L 90 Room Air Laboratory Results Short CBC 04/07/25 04/08/25 Range/Units 14:01 05:29 WBC 8.69 (4.8-10.8) K/ul Hgb 9.7 L 8.5 L (12.0-16.0) g/dl Hct 31.4 L 27.7 L (37.0-47.0) % Plt Count 288 (130-400) K/uL [facility] 04/08/25 05:29 Sodium 142 Potassium 4.1 Chloride 110 H Carbon Dioxide 28 BUN 10 Creatinine 0.94 Glucose 100 H Calcium 8.4 L (1) GI bleed GI bleed type/associated pathology: unspecified gastrointestinal hemorrhage type Qualified Code(s): K92.2 - Gastrointestinal hemorrhage, unspecified
[2025-04-09 06:01] LABS: Hematocrit (blood only) 30.4 % (37.0-47.0); Hemoglobin 9.2 g/dl (12.0-16.0); Mean Corpuscular Hemoglobin 26.0 pg (25.0-34.0); Mean Corpuscular Volume 85.9 fL (80.0-100.0); Platelet Count 320 K/uL (130-400); RDW Standard Deviation 45.1 fL (36.4-46.3); Red Blood Count 3.54 M/uL (4.20-5.40); White Blood Count 9.21 K/ul (4.8-10.8)
[2025-04-09 06:20] LABS: Anion Gap 5.0 (3-11); Blood Urea Nitrogen 17.0 mg/dl (6-23); Calcium 8.6 mg/dl (8.6-10.3); Carbon Dioxide 29.0 mmol/L (21-32); Chloride 107.0 mmol/L (98-107); Creatinine Clr Calc Pharmacy 49.1 ml/min; Glucose 103.0 mg/dl (70-99(Fasting)); Potassium 3.9 mmol/L (3.5-5.1); Sodium 141.0 mmol/L (136-145)
--- NOTE | 2025-04-09 07:45 | Hospitalist Progress Note ---
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 Acute lower GI bleed secondary to hemorrhoidal bleed H/O Internal and external hemorrhoids Chronic constipation Acute blood loss anemia --CT ABD:No acute infectious or inflammatory findings are identified in the abdomen or pelvis. Hyperdense material within the lower rectum just above the anal junction may represent intraluminal contrast/a focus of GI bleeding. --S/P 2 units PRBCs --S/P flexible sigmoidoscopy:- Preparation of the colon was fair. Hemorrhoids found on perianal exam. Stool in the entire examined colon. No blood in the entirety of the lower GI tract. This includes within the diverticular orifices. The stool we visualized also contains no blood. Marked dilation internal hemorrhoids with evidence of prolapse surface excoriation and inflammation. Surface blebs. This is consistent with source of bleeding. No specimens collected. -- Avoid NSAIDs, anticoagulation --Monitor H&H and transfuse as needed -- Appreciate GI input -- Tolerating low fiber diet --Reports intolerance (bloating) to Colace, MiraLAX use. -- Discussed with general surgery on 04/07/2025:Recommends hemorrhoidectomy versus hemorrhoidal banding as outpatient by colorectal surgery Advised patient to follow-up with colorectal surgery as outpatient Hemoglobin stable Plan to be discharged home today Rheumatoid arthritis Continue prednisone Continue PRN Hydrocodone as needed Tachy-vladimir syndrome Permanent afib Patient refused pacemaker in the past per record Rate-controlled Not on chronic anticoagulation at baseline Continue metoprolol succinate 50 mg twice a day Follows with [facility] cardiology Morbid obesity BMI 43 DVT Px: SCDs/TEDs Re: GI bleed Disposition Home Admission and Anticipated Discharge Date Admission Date: April 06, 2025 Subjective Patient is seen and examined at bedside No recurrence of rectal bleed States feeling bloated which she attributes to Colace No other complaints today Denies any chest pain, dyspnea, nausea, vomiting, abdominal pain, dizziness Plan to be discharged home today Review of Systems Review of Systems: All systems reviewed & are unremarkable except as noted in Subjective Physical Exam Physical Exam: Physical Exam: Vitals signs as noted above General Appearance:Obese, no apparent distress Head: normocephalic, Atraumatic Eyes: normal inspection, EOMI Neck: supple, Trachea midline Respiratory/Chest: Normal breath sounds, CTA, No accessory muscle use Cardiovascular: Irregularly irregular No murmur Abdomen/GI:Soft, Non tender, Bowel sounds present Extremities/Musculoskeletal:normal inspection, trace edema Neurologic/Psych:AAOX3, grossly no focal neurological deficits Skin: normal color, warm Results & Data Results & Data Vital Signs (Past 12 Hours) Vital Signs Temp Pulse Pulse Resp BP Pulse Ox O2 Del Method 04/09/25 07:31 36.9 C 69 16 157/94 H 95 Room Air 04/09/25 03:02 36.6 C 67 18 169/84 H 98 Room Air 04/09/25 00:00 72 04/08/25 22:57 36.3 C L 75 16 134/69 93 Room Air Laboratory Results Short CBC 04/09/25 Range/Units 05:40 WBC 9.21 (4.8-10.8) K/ul Hgb 9.2 L (12.0-16.0) g/dl Hct 30.4 L (37.0-47.0) % Plt Count 320 (130-400) K/uL BMP 04/09/25 05:40 Sodium 141 Potassium 3.9 Chloride 107 Carbon Dioxide 29 BUN 17 Creatinine 1.15 Glucose 103 H Calcium 8.6 (1) GI bleed GI bleed type/associated pathology: unspecified gastrointestinal hemorrhage type Qualified Code(s): K92.2 - Gastrointestinal hemorrhage, unspecified
[2025-04-09] MEDS: MAGNESIUM HYDROXIDE SUSP 30 ML UDC PO PRN (08:02)
--- NOTE | 2025-04-09 11:05 | Discharge Summary ---
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 History obtained from the patient, discussion with ED provider and associated chart review. Rectal bleeding x 1 week. Noted bright red blood. Some bouts of maroon-colored stools as well with visible clots. History of constipation. Has been feeling more constipated over the past 2 weeks with increased straining during BMs. Notes she takes MOM every 10 days and uses PRN enemas/suppositories to help with this. Has history of internal and external hemorrhoids. Admits to feeling significantly weaker since the rectal bleeding began. No falls or trauma. Denies any abdominal pain. Reports she had some rectal bleeding last month which lasted about 3-4 days before spontaneously stopping. Had CBC done by PCP at this time which revealed a stable Hgb of 11.3 on 02/18/25 per OP chart review. Admission Exam Per Admitting Provider Pt is awake, alert, answering appropriately. She appears pale. Denies abdominal pain and abd. is nontender on palpation. External visualization of external hemorrhoids, no blood seen, no internal rectal exam performed. Lungs w/ decreased breath sounds, heart sounds irregular, minimal LE edema b/l, pt moves extremities w/o difficulty. Principal Diagnosis Acute lower gastrointestinal bleeding secondary to hemorrhoids Acute blood loss anemia Discharge Data Allergies Allergy/AdvReac Type Severity Reaction Status Date / Time nickel Allergy Mild SKIN Verified 12/19/22 10:48 IRRITATION ciprofloxacin [From Cipro] AdvReac Severe DESTROYED Verified 12/19/22 10:48 LIGAMENTS IN KNEE naproxen AdvReac Intermediate gi upset Verified 12/19/22 10:48 rofecoxib AdvReac Intermediate irregular Verified 12/19/22 10:48 heartbeat lisinopril AdvReac Cough Verified 12/19/22 10:48 Consultations 04/06/25 11:57 ED Decision to Admit Stat 04/06/25 12:07 Consult Gastroenterology Routine Procedures Performed Operation Date: 04/07/25 16:30 Actual Procedures p Flexible Sigmoidoscopy - Amrit Olvera MD Ordered Studies Laboratory Results WBC 9.21 K/ul (4.8-10.8) 04/09/25 05:40 RBC 3.54 M/uL (4.20-5.40) L 04/09/25 05:40 Hgb 9.2 g/dl (12.0-16.0) L 04/09/25 05:40 Hct 30.4 % (37.0-47.0) L 04/09/25 05:40 MCV 85.9 fL (80.0-100.0) 04/09/25 05:40 MCH 26.0 pg (25.0-34.0) 04/09/25 05:40 MCHC 30.3 g/dL (32.0-36.0) L 04/09/25 05:40 RDW Std Deviation 45.1 fL (36.4-46.3) 04/09/25 05:40 RDW Coeff of Cat 14.6 % (11.5-14.5) H 04/09/25 05:40 Plt Count 320 K/uL (130-400) 04/09/25 05:40 MPV 8.9 fL (9.4-12.4) L 04/09/25 05:40 Immature Gran % (Auto) 0.6 % 04/07/25 05:37 Neut % (Auto) 63.2 % 04/07/25 05:37 Lymph % (Auto) 20.2 % 04/07/25 05:37 [place] % (Auto) 11.8 % 04/07/25 05:37 Eos % (Auto) 3.8 % 04/07/25 05:37 Baso % (Auto) 0.4 % 04/07/25 05:37 Neut # (Auto) 5.11 K/uL (1.40-6.50) 04/07/25 05:37 Lymph # (Auto) 1.63 K/uL (1.20-3.40) 04/07/25 05:37 [place] # (Auto) 0.95 K/uL (0.11-0.59) H 04/07/25 05:37 Eos # (Auto) 0.31 K/uL (0.00-0.50) 04/07/25 05:37 Baso # (Auto) 0.03 K/uL (0.00-0.20) 04/07/25 05:37 Immature Gran # (Auto) 0.05 K/uL (0.01-0.20) 04/07/25 05:37 Absolute Nucleated RBC 0.04 K/uL (0.00-0.12) 04/09/25 05:40 Nucleated RBC % (auto) 0.4 % 04/09/25 05:40 Polychromasia 1+ 04/06/25 09:10 PT 10.7 Seconds (9.0-12.0) 04/06/25 09:10 INR 1.0 (0.9-1.1) 04/06/25 09:10 Sodium 141 mmol/L (136-145) 04/09/25 05:40 Potassium 3.9 mmol/L (3.5-5.1) 04/09/25 05:40 Chloride 107 mmol/L (98-107) 04/09/25 05:40 Carbon Dioxide 29 mmol/L (21-32) 04/09/25 05:40 Anion Gap 5 (3-11) 04/09/25 05:40 BUN 17 mg/dl (6-23) 04/09/25 05:40 Creatinine 1.15 mg/dl (0.6-1.2) 04/09/25 05:40 Est Cr Clr Drug Dosing 49.1 ml/min 04/09/25 05:40 eGFR 47.86 04/09/25 05:40 BUN/Creatinine Ratio 14.8 (10-20) 04/09/25 05:40 Glucose 103 mg/dl (70-99(Fasting)) H 04/09/25 05:40 Calcium 8.6 mg/dl (8.6-10.3) 04/09/25 05:40 Phosphorus 3.3 mg/dl (2.5-4.9) 04/07/25 05:37 Magnesium 2.2 mg/dl (1.7-2.4) 04/07/25 05:37 Total Bilirubin 1.0 mg/dl (0.2-1.0) D 04/07/25 05:37 AST 12 U/L (13-39) L 04/07/25 05:37 ALT 6 U/L (7-52) L 04/07/25 05:37 Alkaline Phosphatase 41 U/L (34-104) 04/07/25 05:37 Troponin I High Sens 6.2 pg/ml (0-14) 04/06/25 09:10 Total Protein 5.7 gm/dl (6.0-8.3) L 04/07/25 05:37 Albumin 3.3 gm/dl (3.4-5.0) L 04/07/25 05:37 Globulin 2.4 gm/dl (2.5-4.0) L 04/07/25 05:37 Albumin/Globulin Ratio 1.4 (0.9-2) 04/07/25 05:37 Lipase 16 U/L (11-82) 04/06/25 09:10 Urine Color Yellow 04/06/25 11:15 Urine Appearance Clear (Clear) 04/06/25 11:15 Urine pH 6.5 (4.5-7.5) 04/06/25 11:15 Ur Specific [place] 1.010 (1.000-1.030) 04/06/25 11:15 Urine Protein Negative (Negative) 04/06/25 11:15 Urine Glucose (UA) Negative (Negative) 04/06/25 11:15 Urine Ketones Negative (Negative) 04/06/25 11:15 Urine Blood Negative (Negative) 04/06/25 11:15 Urine Nitrite Negative (Negative) 04/06/25 11:15 Urine Bilirubin Negative (Negative) 04/06/25 11:15 Urine Urobilinogen Negative (Negative) 04/06/25 11:15 Ur Leukocyte Esterase Trace (Negative) H 04/06/25 11:15 Urine WBC (Auto) 0-5 /hpf (0-5) 04/06/25 11:15 Urine RBC (Auto) 0-2 /hpf (0-2) 04/06/25 11:15 U Hyaline Cast (Auto) 0-2 /lpf (0-2) 04/06/25 11:15 U Epithel Cells (Auto) 3-5 /hpf (0-2) H 04/06/25 11:15 Urine Bacteria (Auto) None Seen (None Seen) 04/06/25 11:15 Urine RBC Not Reportable 04/06/25 11:15 Urine WBC Not Reportable 04/06/25 11:15 Ur Epithelial Cells Not Reportable 04/06/25 11:15 Urine Bacteria Not Reportable 04/06/25 11:15 Urine Comment 04/06/25 11:15 Blood Type A Positive 04/06/25 09:09 Antibody Screen NEGATIVE 04/06/25 09:09 Crossmatch See Detail 04/06/25 09:09 Impressions Abdomen/Pelvis CT 04/06/25 10:32 CT SCAN OF THE ABDOMEN AND PELVIS WITH IV CONTRAST CLINICAL HISTORY: Lower GI bleeding. COMPARISON STUDY: Abdominal CT dated 12/17/2022 TECHNIQUE: Following the IV administration of 94 cc of Optiray 320, CT scan of the abdomen and pelvis is performed from the lung bases to the proximal femora. Images are reviewed in the axial, sagittal, and coronal planes. IV contrast was administered without complication. A dose lowering technique was utilized adhering to the principles of ALARA. CT DOSE: 1521.25 mGy.cm FINDINGS: Lung bases: The heart is enlarged and without pericardial effusion. The lung bases are clear noting bibasilar scarring/atelectasis. An approximately 3 x 1 cm collection is again seen in the left breast on image #50 and favors a seroma. Liver: The contrast-enhanced liver is normal in size, contour, and attenuation. There is no intrahepatic biliary ductal dilatation. The hepatic veins and portal veins are patent. Gallbladder: Unremarkable. Spleen: Normal in size and attenuation. There are calcified splenic granulomas. Pancreas: Unremarkable. Adrenal glands: Unremarkable. Kidneys: The contrast enhanced kidneys demonstrate cortical atrophy and are without hydronephrosis. The kidneys enhance symmetrically. Scattered subcentimeter cortical hypodensities likely represent cysts but are too small for definitive characterization. Abdominal vasculature: The abdominal aorta is normal in course and caliber noting mild atherosclerotic calcification. Bowel: There is no bowel obstruction. Hyperdense material within the lower rectum just above the anal junction is seen on axial image #377 and may represent intraluminal contrast. No additional foci of intraluminal contrast are suspected. The appendix is well-visualized and normal. Peritoneum: There is no intraperitoneal free air or abdominal ascites. There is a fat-containing umbilical hernia. Lymphadenopathy: None. Pelvic viscera: The bladder, uterus, and adnexa are normal as visualized. Skeletal structures: The skeletal structures are osteopenic. There is mild lumbosacral spondylosis and scoliosis. No lytic or blastic lesions are seen. IMPRESSION: 1. No acute infectious or inflammatory findings are identified in the abdomen or pelvis. 2. Hyperdense material within the lower rectum just above the anal junction may represent intraluminal contrast/a focus of GI bleeding. If warranted this could be further assessed with direct visualization. 3. Cardiomegaly. 4. Additional findings as above. ACT 112: Negative or not required by law. Electronically signed by: Quinn Conner M.D. 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 Acute lower GI bleed secondary to hemorrhoidal bleed H/O Internal and external hemorrhoids Chronic constipation Acute blood loss anemia --CT ABD:No acute infectious or inflammatory findings are identified in the abdomen or pelvis. Hyperdense material within the lower rectum just above the anal junction may represent intraluminal contrast/a focus of GI bleeding. --S/P 2 units PRBCs --S/P flexible sigmoidoscopy:- Preparation of the colon was fair. Hemorrhoids found on perianal exam. Stool in the entire examined colon. No blood in the entirety of the lower GI tract. This includes within the diverticular orifices. The stool we visualized also contains no blood. Marked dilation internal hemorrhoids with evidence of prolapse surface excoriation and inflammation. Surface blebs. This is consistent with source of bleeding. No specimens collected. -- Avoid NSAIDs, anticoagulation --Monitor H&H and transfuse as needed -- Appreciate GI input -- Tolerating low fiber diet --Reports intolerance (bloating) to Colace, MiraLAX use. -- Discussed with general surgery on 04/07/2025:Recommends hemorrhoidectomy versus hemorrhoidal banding as outpatient by colorectal surgery Advised patient to follow-up with colorectal surgery as outpatient Hemoglobin stable Plan to be discharged home today Rheumatoid arthritis Continue prednisone Continue PRN Hydrocodone as needed Tachy-vladimir syndrome Permanent afib Patient refused pacemaker in the past per record Rate-controlled Not on chronic anticoagulation at baseline Continue metoprolol succinate 50 mg twice a day Follows with [facility] cardiology Morbid obesity BMI 43 DVT Px: SCDs/TEDs Re: GI bleed Disposition Home Total Time Total Time Spent Total Time Spent (In Minutes): 54 minutes Discharge Plan Discharge Items Patient Disposition: Home - Self-Care Reason For Visit: LOWER GI BLEED, ABLA Discharge Diagnosis: Acute lower gastrointestinal bleeding secondary to hemorrhoids Acute blood loss anemia Condition on Discharge: Fair Activity: Per Instructions section Exercise/Sports: Gradually increase as tolerated Non-emergency contact: Primary Care Provider and Surgeon Call non-emergency contact if: you have any medication questions, your symptoms worsen, your pain is concerning for you and you have a fever Follow-up/Referrals: Landon Martinez, DO [Primary Care Provider] - 04/14/25 1:40 pm Diet: Low Fiber Addtl Attending Provider Instructions: -- Follow-up with your primary care physician Dr. Martinez in 1 week --Follow-up with your colorectal surgeon for further management of your hemorrhoids as recommended -- Get blood work (complete blood count) in 1 week to monitor your hemoglobin levels Seek immediate medical attention if your symptoms reoccur or worsen Please review medication list provided on discharge for any medication changes as instructed. Please call if you have any questions or problems. You can reach a [facility] hospitalist on duty at [facility] 24 hours a day by calling [phone] Pending Studies at Discharge: No Stand-Alone Forms: My [facility] NOW! [employer], Smoking Cessation Medications and DC Order Prescriptions: Continued hydrocodone-acetaminophen 5-325 mg tablet 1 tab PO Q8H PRN (Reason: Severe Pain (Scale Score 7-10)) prednisone 5 mg tablet 5 mg PO QAM Patient Comments: 04/06-needs morning dose Rx Instructions: IF NEEDED, MAY TAKE 10 MG DAILY FOR FLARE UPS. alprazolam 0.25 mg tablet 0.25 mg PO BID PRN (Reason: Anxiety) Patient Comments: 04/06-needs morning dose metoprolol succinate 25 mg tablet extended release 24 hr 50 mg PO BID Patient Comments: 04/06-per pt next dose due around 11 cyanocobalamin (vitamin B-12) 1,000 mcg capsule 1,000 mcg PO DAILY Qty: 30 1RF ferrous sulfate 325 mg (65 mg iron) tablet 325 mg PO DAILY Qty: 30 0RF Patient Comments: takes gummy version, works better for her Discharge Orders: Discharge Order (Routine); Ordered 04/09/25 Ordered By: Tay Hannon/Other Patient Handouts: Treating Hemorrhoids: Removal, Treating Hemorrhoids: Surgery, Understanding Hemorrhoids Admission Data Admit Date/Time: 04/06/25 12:11 Attending Provider: Tay Castorena Admit Provider: Elder Roca Primary Care Provider: Landon Martinez Other Providers: Elder Roca; Amrit Olvera; [facility] F[facility] Other Interventions: Discharge Summary Assessment (RN) Last Done: 04/09/25 10:10
[2025-04-09 11:21] VITALS: BP 124/74; PULSE 68; RESP 18; TEMP 98.1; O2SAT 94
--- NOTE | 2025-04-10 09:50 | Electrocardiogram Report ---
Test Reason : Blood Pressure : */* mmHG Vent. Rate : 64 BPM Atrial Rate : * BPM P-R Int : * ms QRS Dur : 74 ms QT Int : 394 ms P-R-T Axes : * 10 44 degrees QTcB Int : 406 ms Atrial fibrillation Low voltage QRS Abnormal ECG When compared with ECG of 17-Dec-2022 13:20, Nonspecific T wave abnormality no longer evident in Anterior leads Confirmed by Kain Moss ([id number]) on 04/10/2025 9:49:28 AM Referred By: REFERRED SELF Confirmed By: Kain Moss
== END 2025-04-09 13:51 | disposition home or self-care (01) | DRG 394 ==
LOC: ED 08:37 → 2E 12:11 → SUATTDRO 12:11 → 2E 14:23